=== PATIENT | male | born 1960 | race Caucasian/White ===

== ENCOUNTER 2016-05-22 15:35 | Inpatient (IN) | payer MEDICARE, OTHER ==
[2016-05-22] MEDS ORDERED: ONDANSETRON HCL/PF 4 MG/ 2ML VIAL IVP ONE (15:50)
[2016-05-22] MEDS ORDERED: MORPHINE SULFATE 4 MG/ML DISP.SYRIN IVP ONE ×2 (15:50→16:31)
--- NOTE | 2016-05-22 15:54 | ED Physician Documentation ---
Abdominal Pain - HISTORIAN Historian: patient, paramedics - HPI Chief Complaint: Abdominal Pain Additonal Information: lt low thoracic and upper abd pain similar to prev pancreatitis - n/e Onset: days ago (3) Duration: constant, waxing, waning Timing: worse Context: other (pmh alcoholic pancreatitis) Severity: moderate Quality: pain Associated Symptoms: chills, nausea, vomiting. denies: bloody emesis, diarrhea Relieved by: nothing - ROS CONST: no problems GI/: none CVS/RESP: none EYES/ENT: none MS/SKIN/LYMPH: none, other (multiple tattoos) NEURO/PSYCH: none - SOCIAL HX Smoking History: less than 1 pack/day Alcohol Use: none Drug Use: none - FAMILY HX Family History: no significant history - PAST HX Past History: pancreatitis, GERD Surgeries/Procedures: other (j-tube bypass of pancreas) Home Medications: Ambulatory Orders Medication Instructions Recorded Bupropion HCl [Wellbutrin Xl] 150 mg PO DAILY 11/21/15 Diazepam 5 mg PO TID 11/21/15 Lipase/Protease/Amylase [Zenpep Dr 1 each PO AC15 11/21/15 15,000 Units Capsule] Lisinopril 20 mg PO DAILY 11/21/15 Omeprazole [Prilosec] 20 mg PO D #30 capsule. 01/22/16 Allergies/Adverse Reactions: Allergies Allergy/AdvReac Type Severity Reaction Status Date / Time oxycodone AdvReac Vomiting Verified 11/21/15 08:27 - VITAL SIGNS Vital Signs: Vital Signs Temp Pulse Resp BP Pulse Ox 98.1 F 87 18 163/92 97 05/22/16 15:45 05/22/16 15:45 05/22/16 15:45 05/22/16 15:45 05/22/16 15:45 - REVIEWED ASSESSMENTS Nursing Assessment Reviewed: Yes Vitals Reviewed: Yes ED Results Lab/Radiology - Lab Results Lab Results: Lab Results 05/22/16 05/22/16 15:55 15:55 WBC 14.10 K/ul H K/ul (4.00-12.00) RBC 5.35 M/ul H M/ul (3.90-5.20) Hgb 15.2 g/dL g/dL (12.0-18.0) Hct 46.5 % % (37.0-53.0) MCV 86.8 fl fl (80.0-100.0) MCH 28.4 pg pg (28.0-34.0) MCHC 32.7 g/dL g/dL (30.0-36.0) RDW 13.7 % % (11.3-14.3) Plt Count 263 K/mm3 K/mm3 (130-400) Neut % (Auto) 80.5 % H % (39.0-79.0) Lymph % (Auto) 13.5 % L % (16.0-50.0) Edwards % (Auto) 4.3 % % (0.0-11.0) Eos % (Auto) 0.7 % % (0.0-6.8) Baso % (Auto) 0.4 (0.0-1.5) Neut # 11.4 # k/uL H # k/uL (1.4-7.7) Lymph # 1.9 # k/uL # k/uL (0.6-4.0) Edwards # 0.6 # k/uL # k/uL (0.0-0.9) Eos # 0.1 # k/uL # k/uL (0.0-0.6) Baso # 0.0 # k/uL # k/uL (0.0-0.5) Reactive Lymphs % 0.7 % % (0.0-5.0) Reactive Lymphs # 0.1 # k/uL # k/uL (0.0-0.8) Sodium 138 mmol/L mmol/L (136-145) Potassium 4.0 mmol/L mmol/L (3.5-5.0) Chloride 107 mmol/L mmol/L (98-110) Carbon Dioxide 31 mmol/L mmol/L (20-32) BUN 16 mg/dL mg/dL (10-26) Creatinine 1.1 mg/dL mg/dL (0.4-1.5) Estimated Creat Clear 75 Est GFR ( Amer) > 60 (60 - ) Est GFR (Non-Af Amer) > 60 (60 - ) Glucose 111 mg/dL H mg/dL (70-99) Calcium 9.9 mg/dL mg/dL (8.5-10.5) Total Bilirubin 0.5 mg/dL mg/dL (0.2-1.2) AST 27 U/L U/L (0-41) ALT 16 U/L U/L (0-45) Alkaline Phosphatase 77 U/L U/L (46-116) Total Protein 8.2 g/dL g/dL (6.0-8.5) Albumin 5.1 g/dL g/dL (3.0-5.5) Amylase 696 U/L H U/L (20-104) - Orders Orders: ED Orders Category Date Time Status Assess pulse oximetry Q4H Care 05/22/16 16:55 Active Continuous EKG monitoring Q1H Care 05/22/16 16:55 Active Document Bowel Movement Q8H Care 05/22/16 16:[address] Ann NOW Care 05/22/16 17:00 Ordered Insert NG tube 1T Care 05/22/16 16:37 Active Vital Signs Q4 Care 05/22/16 16:55 Ordered Nothing Per Oral Diet 05/22/16 Dinner Ordered ABD SERIES PA CHEST [RAD] Stat Exams 05/22/16 Completed AMYLASE Routine Lab 05/22/16 15:55 Completed CBC/PLATELET/DIFF Routine Lab 05/22/16 15:55 Completed CMP Routine Lab 05/22/16 15:55 Completed URINALYSIS Routine Lab 05/22/16 Ordered 0.9 % Sodium Chloride [Normal Saline] 1,000 ml Med 05/22/16 16:00 Discontinued IV Q10H 0.9 % Sodium Chloride [Normal Saline] 1,000 ml Med 05/22/16 17:01 Ordered IV Q4-6 Bupropion HCl [Wellbutrin Xl] Med 05/23/16 09:00 Ordered 150 mg PO DAILY Diazepam [Diazepam] Med 05/22/16 18:00 Ordered 5 mg PO TID Lipase/Protease/Amylase [Zenpep Dr 15,000 Units Capsule Med 05/23/16 07:45 Ordered ] 1 each PO AC15 Lisinopril [Lisinopril] Med 05/23/16 09:00 Ordered 20 mg PO DAILY Morphine Sulfate [DepoDUR] Med 05/22/16 15:50 Discontinued 2 mg IVP NOW ONE Morphine Sulfate [DepoDUR] Med 05/22/16 16:31 Discontinued 2 mg IVP NOW ONE Omeprazole [Prilosec] Med 05/23/16 09:00 Ordered 20 mg PO D Ondansetron HCl/Pf [Zofran 4 mg/2 ml] Med 05/22/16 15:50 Discontinued 4 mg IVP NOW ONE Resuscitation Status Routine Oth 05/22/16 Ordered EKG WITH COMPARISON Stat Ther 05/22/16 Completed Abdominal Pain Physical Exam - Physical Exam General Appearance: mild distress, moderate distress EENT: eye inspection normal NECK: normal inspection, thyroid normal, supple RESPIRATORY: no resp distress, chest non-tender, breath sounds normal CVS: reg rate & rhythm, heart sounds normal ABDOMEN: soft, tenderness (upper abd) BACK: normal inspection, no CVA tenderness SKIN: warm/dry, normal color. No: cyanosis, diaphoresis EXTREMITIES: non-tender, normal range of motion NEURO: oriented X3, motor nml, sensation nml, mood/affect nml Vital Signs: Vital Signs Temp Pulse Resp BP Pulse Ox 98.1 F 87 18 163/92 97 05/22/16 15:45 05/22/16 15:45 05/22/16 15:45 05/22/16 15:45 05/22/16 15:45 Discharge Clincal Impression: Pancreatitis Home Medications: Ambulatory Orders Bupropion HCl [Wellbutrin Xl] 150 mg PO DAILY 11/21/15 Diazepam 5 mg PO TID 11/21/15 Lipase/Protease/Amylase [Fidel Vergara 15,000 Units Capsule] 1 each PO AC15 Lisinopril 20 mg PO DAILY 11/21/15 Omeprazole [Prilosec] 20 mg PO D #30 capsule. 01/22/16 Comments: adm dr ann Condition: Good Disposition: 01 HOME, SELF-CARE Decision to Admit: [id number] Decision Time: 17:03
[2016-05-22] MEDS ORDERED: 0.9 % SODIUM CHLORIDE 1,000 ML IV SCH (16:00)
[2016-05-22 16:08] LABS: BASOPHILS % 0.4 (0.0-1.5); EOSINOPHILS % 0.7 % (0.0-6.8); LYMPHOCYTES # 1.9 # k/uL (0.6-4.0); MEAN CORPUSCULAR HEMOGLOBIN 28.4 pg (28.0-34.0); MONOCYTES # 0.6 # k/uL (0.0-0.9); MONOCYTES % 4.3 % (0.0-11.0); NEUTROPHILS # 11.4 # k/uL (1.4-7.7)
[2016-05-22 16:16] LABS: eGFR (African) > 60; eGFR (Non-African) > 60
--- NOTE | 2016-05-22 16:46 | Diagnostic Imaging Report ---
[facility] [address] [facility].[address] [address] Report Submission Date: May 22, 2016 4:34:22 PM PSYCHIATRIC TECHNICIAN Patient Study Name: JOE GEORGE Date: May 22, 2016 4:15:13 PM PSYCHIATRIC TECHNICIAN Modality Type: CR Gender: M Description: CHEST,ABDOMEN : 62 Institution: [facility] Physician: TAWANNA Stacy DO Obstructive series with chest x-ray Clinical history: Abdominal and chest pain. History of chronic pancreatitis. Findings: Examination of the chest in single upright view demonstrates the lungs to be clear. The cardiovascular and mediastinal silhouettes are within normal limits for the patient's age. The aorta is atherosclerotic. The bony thorax is intact. Examination of the abdomen in supine and upright views demonstrates gas and stool throughout the colon. Psoas margins are well-defined and the properitoneal fat lines are preserved. The visualized visceral silhouettes are within normal limits. Degenerative changes are seen in the thoracolumbar spine and hips. Impression: 1. Aortic atherosclerosis. 2. Thoracolumbar spondylosis. 3. No obstruction or free air. Electronically signed on May 22, 2016 4:34:22 PM PSYCHIATRIC TECHNICIAN by: Ismael AGUILAR
[2016-05-22] MEDS ORDERED: 0.9 % SODIUM CHLORIDE 1,000 ML IV ONE (16:48)
[2016-05-22] MEDS ORDERED: 0.9 % SODIUM CHLORIDE 1,000 ML IV PRN ×2 (17:01→17:05)
[2016-05-22] MEDS ORDERED: DIAZEPAM 5 MG PO SCH (18:00)
[2016-05-22] MEDS: 0.9 % SODIUM CHLORIDE 1,000 ML IV SCH ×2 (18:45→21:10)
--- NOTE | 2016-05-22 19:21 | History and Physical Report ---
History of Present Illnes - History of Present Illness Reason for Visit: Acute pancreatitis History of Present Illness: This is a 56 year old male admitted due to abdominal pain, and markedly elevated amylase level. He has a history of recurrent pancreatitis and was hospitalized for the same in January at our institution last year. He has been treated non operatively although several years ago, he did have a J tube in place for an extended period of time and he was NPO. He states that he is an alcoholic and that he only stopped drinking a few months ago. He says that this is the first episode of pancreatitis that he has experienced since he stopped drinking alcohol. - Past Medical History Cardiac: HTN Pulmonary: COPD, Other (smoker) Hepatobiliary: Other (History of recurrent pancreatitis) Psych: Addictions (alcoholism) Renal/: denies: Chronic renal insuff Endocrine: denies: Diabetes - Past Surgical History Past Surgical History: Other (J tube placement) - Past Social History Smoke: <1 pack per day (04/17 ppd) Occupation: disabled Alcohol: Occassional (1 beer daily) Drugs: None Lives: With Family Domestic Violence: Negative - Health Maintenance Health Maintenance: Cholesterol Influenza Vaccine: Current for this Influenza Season Pneumonia Vaccine: Yes Resuscitation Status: Full Code Review of Systems - Review of Systems Constitutional: Chills, Sweats, Weakness, Malaise. negative: Fever Eyes: pain (epigastric to RUQ) ENT: negative: Ear Pain, Ear Discharge Respiratory: negative: Cough, Dry Cardiovascular: negative: Chest Pain Gastrointestinal: Nausea, Vomiting, Abdominal Pain. negative: Diarrhea Genitourinary: negative: Dysuria Musculoskeletal: negative: Neck Pain, Shoulder Pain Skin: negative: Rash, Lesions Neurological: Weakness. negative: Confusion - Medications/Allergies Allergies/Adverse Reactions: Allergies Allergy/AdvReac Type Severity Reaction Status Date / Time oxycodone AdvReac Vomiting Verified 11/21/15 08:27 Home Medications: Home Medications Bupropion HCl [Wellbutrin Sr] 150 mg PO BID 05/22/16 Current Inpatient Medications: Current Inpatient Medications Bupropion HCl (Wellbutrin Sr) 150 mg PO BID LAM Sodium Chloride (Normal Saline) 1,000 mls @ 200 mls/hr IV Q10H LAM Last Admin: 05/22/16 18:45 Dose: 200 mls/hr Lisinopril (Prinivil) 20 mg PO DAILY LAM Morphine Sulfate (Depodur) 2 mg IVP Q2 PRN PRN Reason: Severe Pain Pantoprazole Sodium (Protonix) 40 mg PO 0700 LAM Exam - Exam Vital Signs: Vital Signs (72 hours) 05/22/16 05/22/16 05/22/16 17:40 17:55 18:00 Temperature 98.1 F 97.0 F L Pulse Rate 66 Pulse Rate [ 87 70 Pulse ox] Respiratory 18 22 Rate Blood Pressure 167/97 188/103 [Left Arm] O2 Sat by Pulse 98 97 Oximetry General: Alert, Oriented to Person, Oriented to Place, Oriented to Time, Cooperative, Moderate distress (due to abdominal pain) HEENT: Atraumatic, PERRLA, EOMI, Poor Dentition. No: Scleral Icterus, Abnormal Pupil Neck: No: Stridor Lungs: Wheezes, Prolonged Expiration, Decreased Air Movement Cardiovascular: Regular rate. No: Murmur Abdomen: Normal bowel sounds, Other (tender in the epigastrium), Distended Genitourinary: No: Right Inguinal Hernia, Left Inguinal Hernia Male Genitourinary: No: Scrotal Edema Female Genitourinary: Prolapse Integumentary: Normal, Other (diaphoretic) Extremities: No clubbing, No cyanosis Neurological: Normal speech, Cranial nerves 3-12 NL Psych/Mental Status: Mental status NL, Intact Judgment Assessment/Plan - Assessment/Plan (1) Pancreatitis Status: Acute Current Visit: Yes Assessment: Mild by Shayla Criteria Plan: CT abdomen with contrast Repeat labs in am NPO/NG tube Evidence does not show prophylactic antibiotics would be helpful at this time Stressed need for abstinence from alcohol (2) Alcoholism in remission Status: Acute Current Visit: Yes Assessment: Encouraged continued abstinence from alcohol (3) RUQ abdominal pain Status: Acute Current Visit: No Assessment: As above VTE Assessment - RISK FACTOR SCORE VTE RISK FACTOR SCORES: AGE 40-60 YEARS, ANTICIPATED BED CONFINEMENT OR IMMOBILIZATION > 24 HOURS - RISK VTE MODERATE RISK: SCORE OF 2 (RISK PROXIMAL DVT 2-4%) PROPHYAXIS NEEDED (On lovenox and JALYN hose)
[2016-05-22 19:23] VITALS: BMI 22.8
[2016-05-22] MEDS ORDERED: SALINE FLUSH 10 ML DISP.SYRIN IVF ONE ×2 (19:53→21:53)
[2016-05-22] MEDS: MORPHINE SULFATE 2 MG/ML DISP.SYRIN IVP PRN ×2 (19:55→21:59)
[2016-05-22] MEDS ORDERED: ENOXAPARIN SODIUM 30 MG/0.3 ML DISP.SYRIN SQ SCH (20:00)
[2016-05-22] MEDS ORDERED: PANTOPRAZOLE SODIUM INJ. 40 MG VIAL ONE (21:07)
[2016-05-22] MEDS ORDERED: 0.9 % SODIUM CHLORIDE 50 ML IV ONE (21:07)
[2016-05-22] MEDS: PANTOPRAZOLE SODIUM 40 MG in 0.9 % SODIUM CHLORIDE 50 ML IV SCH (21:13)
[2016-05-22] MEDS ORDERED: ENOXAPARIN SODIUM 30 MG/0.3 ML DISP.SYRIN SQ ONE (21:15)
[2016-05-22] MEDS: buPROPion 150 MG TABLET.ER PO SCH (23:35)
[2016-05-23] MEDS ORDERED: SALINE FLUSH 10 ML DISP.SYRIN IVF ONE ×4 (00:03→23:00)
[2016-05-23] MEDS: MORPHINE SULFATE 2 MG/ML DISP.SYRIN IVP PRN ×9 (00:06→23:03)
[2016-05-23] MEDS: 0.9 % SODIUM CHLORIDE 1,000 ML IV SCH ×3 (02:45→21:52)
--- NOTE | 2016-05-23 05:46 | Diagnostic Imaging Report ---
Report Submission Date: May 22, 2016 8:45:35 PM COURTESY VAN DRIVER Patient ~ Study Name: JOE GEORGE ~ Date: May 22, 2016 8:19:48 PM COURTESY VAN DRIVER ~ Modality Type: CT\SR Gender: M ~ Description: CT ABD & PELVIS W/ CON : 62 ~ Institution: [facility] Physician: ANNY SCHILLING ~ ~ ~ ~ Computed tomography of the abdomen and pelvis with contrast History: Acute pancreatitis and abdominal pain Findings: Transverse abdomen and pelvis sections are obtained after 90 mL intravenous omnipaque 350. A nasogastric tube terminates in the proximal stomach. Mitral annulus calcification, right renal cyst, mild atherosclerosis, and multilevel lumbar spondylosis and are observed. A hypodense 3.5 x 3.5 cm pancreatic head lesion ~was previously cystic and is now soft tissue density. This is associated with peripancreatic inflammation, duodenum mural thickening, and peripheral pancreatic ductal dilatation. Gallbladder diameter and wall thickness are normal. The liver, spleen, adrenals, and left kidney are normal. Inflammation extends into the root of the mesentery. There is no evidence of biliary ductal dilatation. Bowel loops exhibit normal caliber and wall thickness including a normal appendix. Pelvic sections reveal unremarkable bowel loops and urinary bladder. Prostate and seminal vesicles are normal in size. Impression: 1. A previously cystic pancreatic head lesion now exhibits soft tissue density and may represent proteinaceous material, hemorrhage, or less likely malignancy given the lack of interval change in size since the January 20, 2016 scan. This is associated with persistent peripheral pancreatic duct dilatation. Consider MRI followup to exclude neoplastic disease. 2. Acute pancreatitis and duodenitis. ~ Electronically signed on May 22, 2016 8:45:35 PM COURTESY VAN DRIVER by: Oleg AGUILAR
[2016-05-23 06:43] LABS: eGFR (African) > 60; eGFR (Non-African) > 60
[2016-05-23] MEDS ORDERED: PANTOPRAZOLE SODIUM 40 MG TABLET PO SCH (07:00)
[2016-05-23] MEDS ORDERED: LIPASE PO SCH (07:45)
[2016-05-23] MEDS ORDERED: AMYLASE PO SCH (07:45)
[2016-05-23] MEDS ORDERED: PROTEASE PO SCH (07:45)
[2016-05-23] MEDS ORDERED: BUPROPION HCL 150 MG PO SCH (09:00)
[2016-05-23] MEDS ORDERED: OMEPRAZOLE 20 MG PO SCH (09:00)
[2016-05-23] MEDS ORDERED: LISINOPRIL 20 MG PO SCH (09:00)
--- NOTE | 2016-05-23 09:01 | Inpatient Progress Note ---
Subjective - Required Recertification Statement I anticipate X number of days because-include discharge plan: 4 - Review of Systems Events since last encounter: Leonardo is still has some abdominal pain. His CT abdomen shows pancreatic head edema, no peripancreatic fluid collections. It is consistent with acute pancreatitis and duodenitis. His pain is better with morphine. His NG tube appears to be functioning well. General: Chills, Night Sweats, Fatigue HEENT: Denies: Head Aches Pulmonary: Denies: Dyspnea, Cough Cardiovascular: Denies: Chest Pain, Palpitations Gastrointestinal: Nausea. Denies: Vomiting Genitourinary: Denies: Dysuria, Frequency Musculoskeletal: Denies: Neck Pain Neurological: Weakness. Denies: Confusion Objective - Exam Vitals and I&O: Vital Signs Temp 99 F 05/23/16 08:45 Pulse 63 05/23/16 08:45 Resp 18 05/23/16 08:45 BP 142/77 05/23/16 08:45 Pulse Ox 96 05/23/16 08:45 Intake & Output 05/22/16 05/22/16 05/23/16 11:59 23:59 11:59 Intake Total 0 2600 Output Total 800 Balance 0 1800 Weight 72.121 kg Intake: IV 2600 Left Wrist 2600 Oral 0 0 Output: Gastric Drainage 0 Left Nare 0 Urine 800 Other: Voiding Method Toilet # Voids 1 General: Alert, Oriented to Person, Oriented to Place HEENT: Atraumatic, PERRLA, EOMI, Poor Dentition, Other (NG tube is in place to intermittent suction) Neck: Supple, No JVD Lungs: Clear to auscultation Cardiovascular: Regular rate Abdomen: Normal bowel sounds, Other (Mid epigastric tenderness persists) Extremities: No clubbing, No cyanosis, No edema Skin: Normal, [place] Neurological: Normal speech Psych/Mental Status: Mental status NL - Results Results: Laboratory Results WBC 8.70 K/ul (4.00-12.00) 05/23/16 06:15 RBC 4.43 M/ul (3.90-5.20) 05/23/16 06:15 Hgb 12.9 g/dL (12.0-18.0) 05/23/16 06:15 Hct 38.7 % (37.0-53.0) 05/23/16 06:15 MCV 87.4 fl (80.0-100.0) 05/23/16 06:15 MCH 29.0 pg (28.0-34.0) 05/23/16 06:15 MCHC 33.2 g/dL (30.0-36.0) 05/23/16 06:15 RDW 13.7 % (11.3-14.3) 05/23/16 06:15 Plt Count 178 K/mm3 (130-400) 05/23/16 06:15 Neut % (Auto) 80.5 % (39.0-79.0) H 05/22/16 15:55 Lymph % (Auto) 13.5 % (16.0-50.0) L 05/22/16 15:55 Pettis % (Auto) 4.3 % (0.0-11.0) 05/22/16 15:55 Eos % (Auto) 0.7 % (0.0-6.8) 05/22/16 15:55 Baso % (Auto) 0.4 (0.0-1.5) 05/22/16 15:55 Neut # 11.4 # k/uL (1.4-7.7) H 05/22/16 15:55 Lymph # 1.9 # k/uL (0.6-4.0) 05/22/16 15:55 Pettis # 0.6 # k/uL (0.0-0.9) 05/22/16 15:55 Eos # 0.1 # k/uL (0.0-0.6) 05/22/16 15:55 Baso # 0.0 # k/uL (0.0-0.5) 05/22/16 15:55 Reactive Lymphs % 0.7 % (0.0-5.0) 05/22/16 15:55 Reactive Lymphs # 0.1 # k/uL (0.0-0.8) 05/22/16 15:55 Sodium 137 mmol/L (136-145) 05/23/16 06:15 Potassium 3.8 mmol/L (3.5-5.0) 05/23/16 06:15 Chloride 110 mmol/L (98-110) 05/23/16 06:15 Carbon Dioxide 26 mmol/L (20-32) 05/23/16 06:15 BUN 12 mg/dL (10-26) 05/23/16 06:15 Creatinine 0.8 mg/dL (0.4-1.5) 05/23/16 06:15 Estimated Creat Clear 106 05/23/16 06:15 Est GFR ( Amer) > 60 (60-) 05/23/16 06:15 Est GFR (Non-Af Amer) > 60 (60-) 05/23/16 06:15 Glucose 93 mg/dL (70-99) 05/23/16 06:15 Calcium 8.6 mg/dL (8.5-10.5) 05/23/16 06:15 Total Bilirubin 0.5 mg/dL (0.2-1.2) 05/22/16 15:55 AST 27 U/L (0-41) 05/22/16 15:55 ALT 16 U/L (0-45) 05/22/16 15:55 Alkaline Phosphatase 77 U/L (46-116) 05/22/16 15:55 Total Protein 8.2 g/dL (6.0-8.5) 05/22/16 15:55 Albumin 5.1 g/dL (3.0-5.5) 05/22/16 15:55 Amylase 696 U/L (20-104) H 05/22/16 15:55 Assessment/Plan - Assessment/Plan (1) Pancreatitis Status: Acute Current Visit: Yes Assessment: Recurrent Plan: Check placement of NG tube Added levofloxacin and flagyl (2) Alcoholism in remission Status: Acute Current Visit: Yes Assessment: Stable (3) RUQ abdominal pain Status: Acute Current Visit: No Assessment: Due to pancreatitis
[2016-05-23] MEDS ORDERED: metroNIDAZOLE/SODIUM CHLORIDE 100 ML IV ONE ×4 (10:27→19:59)
[2016-05-23] MEDS ORDERED: LEVOFLOXACIN 500MG/D5W 100ML 100 ML IV ONE (10:27)
[2016-05-23] MEDS: ENOXAPARIN SODIUM 30 MG/0.3 ML DISP.SYRIN SQ SCH (10:33)
[2016-05-23] MEDS: LISINOPRIL 20 MG TABLET PO SCH (10:33)
[2016-05-23] MEDS: buPROPion 150 MG TABLET.ER PO SCH ×2 (10:33→20:40)
[2016-05-23] MEDS: PANTOPRAZOLE SODIUM 40 MG in 0.9 % SODIUM CHLORIDE 50 ML IV SCH (10:45)
--- NOTE | 2016-05-23 10:49 | Diagnostic Imaging Report ---
[facility] [address] [facility] [address] [address] Report Submission Date: May 23, 2016 10:08:38 AM VEST PRESSER Patient Study Name: JOE GEORGE Date: May 23, 2016 9:53:35 AM VEST PRESSER Modality Type: CR Gender: M Description: ABDOMEN : 62 Institution: [facility] Physician TONIE MCCORMICK - OP Abdomen -one view CLINICAL HISTORY: Nasogastric tube placement. FINDINGS: Examination abdomen in single AP view with comparison to examination from the previous day demonstrates nasogastric tube with tip in the gastric body. Gas and stool are present throughout the colon. Psoas margins are well defined and the properitoneal fat lines are preserved. There are no unusual intra- abdominal calcifications. Mild spondylitic changes are seen in the thoracic vertebrae. IMPRESSION: Nasogastric tube tip in the gastric body. Electronically signed on May 23, 2016 10:08:38 AM VEST PRESSER by: Ismael AGUILAR
[2016-05-23] MEDS: metroNIDAZOLE/SODIUM CHLORIDE 500 MG in PREMIX BAG 1 BAG IV SCH ×3 (11:25→20:06)
[2016-05-23] MEDS: LEVOFLOXACIN 500MG/D5W 100ML 500 MG in PREMIX BAG 1 BAG IV SCH (12:31)
[2016-05-23] MEDS ORDERED: MORPHINE SULFATE 2 MG/ML DISP.SYRIN ONE ×4 (14:40→23:01)
[2016-05-23] MEDS ORDERED: buPROPion 150 MG TABLET.ER PO ONE (15:24)
[2016-05-23] MEDS ORDERED: 0.9 % SODIUM CHLORIDE 1,000 ML IV ONE ×2 (15:25→21:50)
[2016-05-23 18:11] LABS: LIPASE 243 U/L (13-60)
[2016-05-24] MEDS ORDERED: metroNIDAZOLE/SODIUM CHLORIDE 100 ML IV ONE ×3 (02:40→19:45)
[2016-05-24] MEDS ORDERED: 0.9 % SODIUM CHLORIDE 1,000 ML IV ONE ×4 (02:40→22:58)
[2016-05-24] MEDS: 0.9 % SODIUM CHLORIDE 1,000 ML IV SCH ×5 (02:44→23:01)
[2016-05-24] MEDS: metroNIDAZOLE/SODIUM CHLORIDE 500 MG in PREMIX BAG 1 BAG IV SCH ×4 (02:44→19:51)
[2016-05-24] MEDS ORDERED: SALINE FLUSH 10 ML DISP.SYRIN IVF ONE ×5 (02:53→19:53)
[2016-05-24] MEDS ORDERED: MORPHINE SULFATE 2 MG/ML DISP.SYRIN ONE ×7 (02:54→19:53)
[2016-05-24] MEDS: MORPHINE SULFATE 2 MG/ML DISP.SYRIN IVP PRN ×7 (02:56→19:57)
[2016-05-24] MEDS ORDERED: 0.9 % SODIUM CHLORIDE 50 ML IV ONE (05:40)
[2016-05-24] MEDS ORDERED: ENOXAPARIN SODIUM 30 MG/0.3 ML DISP.SYRIN SQ ONE (05:40)
[2016-05-24] MEDS ORDERED: LEVOFLOXACIN 500MG/D5W 100ML 100 ML IV ONE (05:40)
[2016-05-24] MEDS ORDERED: PANTOPRAZOLE SODIUM INJ. 40 MG VIAL ONE (05:41)
[2016-05-24] MEDS: buPROPion 150 MG TABLET.ER PO SCH ×2 (08:19→19:49)
[2016-05-24] MEDS ORDERED: LISINOPRIL 20 MG TABLET ONE (08:19)
[2016-05-24] MEDS: ENOXAPARIN SODIUM 30 MG/0.3 ML DISP.SYRIN SQ SCH (08:19)
[2016-05-24] MEDS: LISINOPRIL 20 MG TABLET PO SCH (08:21)
[2016-05-24] MEDS: PANTOPRAZOLE SODIUM 40 MG in 0.9 % SODIUM CHLORIDE 50 ML IV SCH (08:33)
[2016-05-24] MEDS: LEVOFLOXACIN 500MG/D5W 100ML 500 MG in PREMIX BAG 1 BAG IV SCH (11:05)
--- NOTE | 2016-05-24 12:52 | Inpatient Progress Note ---
Subjective - Required Recertification Statement I anticipate X number of days because-include discharge plan: 2 - Review of Systems Events since last encounter: Leonardo is feeling better today. His pain is better controlled. His NG tube is a little irritating, but he is cooperative and compliant. General: Denies: Chills, Night Sweats HEENT: Denies: Head Aches Pulmonary: Denies: Dyspnea, Cough Cardiovascular: Denies: Chest Pain Gastrointestinal: Nausea, Abdominal Pain (improved). Denies: Vomiting Genitourinary: Denies: Dysuria Musculoskeletal: Denies: Neck Pain Neurological: Weakness. Denies: Confusion Objective - Exam Vitals and I&O: Vital Signs Temp 98.9 F 05/24/16 08:48 Pulse 75 05/24/16 12:00 Resp 16 05/24/16 08:48 BP 135/72 05/24/16 08:48 Pulse Ox 97 05/24/16 08:48 Intake & Output 05/23/16 05/24/16 05/24/16 23:59 11:59 23:59 Intake Total 1200 1000 Output Total 725 1200 Balance 475 -200 Weight 72.121 kg Intake: IV 1200 1000 Left Wrist 1200 1000 Oral 0 0 Output: Gastric Drainage 50 Left Nare 50 Urine 675 1200 Other: Voiding Method Toilet Urinal # Bowel Movements 0 General: Alert, Oriented to Person, Oriented to Place, Cooperative, Moderate distress HEENT: Atraumatic, PERRLA, EOMI Neck: Supple, No JVD Lungs: Clear to auscultation Cardiovascular: Regular rate, Normal S1 Abdomen: Normal bowel sounds Extremities: No clubbing, No cyanosis, No edema Skin: Normal, [place] Neurological: Normal gait, Normal speech Psych/Mental Status: Mental status NL - Results Results: Laboratory Results WBC 8.70 K/ul (4.00-12.00) 05/23/16 06:15 RBC 4.43 M/ul (3.90-5.20) 05/23/16 06:15 Hgb 12.9 g/dL (12.0-18.0) 05/23/16 06:15 Hct 38.7 % (37.0-53.0) 05/23/16 06:15 MCV 87.4 fl (80.0-100.0) 05/23/16 06:15 MCH 29.0 pg (28.0-34.0) 05/23/16 06:15 MCHC 33.2 g/dL (30.0-36.0) 05/23/16 06:15 RDW 13.7 % (11.3-14.3) 05/23/16 06:15 Plt Count 178 K/mm3 (130-400) 05/23/16 06:15 Neut % (Auto) 80.5 % (39.0-79.0) H 05/22/16 15:55 Lymph % (Auto) 13.5 % (16.0-50.0) L 05/22/16 15:55 Cotton % (Auto) 4.3 % (0.0-11.0) 05/22/16 15:55 Eos % (Auto) 0.7 % (0.0-6.8) 05/22/16 15:55 Baso % (Auto) 0.4 (0.0-1.5) 05/22/16 15:55 Neut # 11.4 # k/uL (1.4-7.7) H 05/22/16 15:55 Lymph # 1.9 # k/uL (0.6-4.0) 05/22/16 15:55 Cotton # 0.6 # k/uL (0.0-0.9) 05/22/16 15:55 Eos # 0.1 # k/uL (0.0-0.6) 05/22/16 15:55 Baso # 0.0 # k/uL (0.0-0.5) 05/22/16 15:55 Reactive Lymphs % 0.7 % (0.0-5.0) 05/22/16 15:55 Reactive Lymphs # 0.1 # k/uL (0.0-0.8) 05/22/16 15:55 Sodium 137 mmol/L (136-145) 05/23/16 06:15 Potassium 3.8 mmol/L (3.5-5.0) 05/23/16 06:15 Chloride 110 mmol/L (98-110) 05/23/16 06:15 Carbon Dioxide 26 mmol/L (20-32) 05/23/16 06:15 BUN 12 mg/dL (10-26) 05/23/16 06:15 Creatinine 0.8 mg/dL (0.4-1.5) 05/23/16 06:15 Estimated Creat Clear 106 05/23/16 06:15 Est GFR ( Amer) > 60 (60-) 05/23/16 06:15 Est GFR (Non-Af Amer) > 60 (60-) 05/23/16 06:15 Glucose 93 mg/dL (70-99) 05/23/16 06:15 Calcium 8.6 mg/dL (8.5-10.5) 05/23/16 06:15 Total Bilirubin 0.5 mg/dL (0.2-1.2) 05/22/16 15:55 AST 27 U/L (0-41) 05/22/16 15:55 ALT 16 U/L (0-45) 05/22/16 15:55 Alkaline Phosphatase 77 U/L (46-116) 05/22/16 15:55 Total Protein 8.2 g/dL (6.0-8.5) 05/22/16 15:55 Albumin 5.1 g/dL (3.0-5.5) 05/22/16 15:55 Amylase 696 U/L (20-104) H 05/22/16 15:55 Lipase 243 U/L (13-60) H 05/23/16 06:15 Assessment/Plan - Assessment/Plan (1) Pancreatitis Status: Acute Current Visit: Yes Assessment: Amylase ordered for this am was canceled by [email or web address], so I have reordered it. If normalized, will get out NG tube and advance to clear liquids (2) Alcoholism in remission Status: Acute Current Visit: Yes Assessment: Stable (3) RUQ abdominal pain Status: Acute Current Visit: No Assessment: Improved
[2016-05-24 13:31] LABS: eGFR (African) > 60; eGFR (Non-African) > 60
[2016-05-24] MEDS ORDERED: buPROPion 150 MG TABLET.ER PO ONE (19:45)
[2016-05-25] MEDS ORDERED: metroNIDAZOLE/SODIUM CHLORIDE 100 ML IV ONE ×3 (02:11→17:16)
[2016-05-25] MEDS: metroNIDAZOLE/SODIUM CHLORIDE 500 MG in PREMIX BAG 1 BAG IV SCH ×3 (02:50→17:25)
[2016-05-25] MEDS ORDERED: MORPHINE SULFATE 2 MG/ML DISP.SYRIN ONE ×2 (02:51→09:47)
[2016-05-25] MEDS ORDERED: 0.9 % SODIUM CHLORIDE 1,000 ML IV ONE ×2 (02:54→11:49)
[2016-05-25] MEDS ORDERED: SALINE FLUSH 10 ML DISP.SYRIN IVF ONE (02:55)
[2016-05-25] MEDS: MORPHINE SULFATE 2 MG/ML DISP.SYRIN IVP PRN ×2 (03:03→10:00)
[2016-05-25] MEDS ORDERED: buPROPion 150 MG TABLET.ER PO ONE (04:43)
[2016-05-25] MEDS ORDERED: ENOXAPARIN SODIUM 30 MG/0.3 ML DISP.SYRIN SQ ONE (04:43)
[2016-05-25] MEDS ORDERED: LISINOPRIL 20 MG TABLET ONE (04:44)
[2016-05-25] MEDS: 0.9 % SODIUM CHLORIDE 1,000 ML IV SCH ×3 (04:58→19:19)
[2016-05-25] MEDS ORDERED: LEVOFLOXACIN 500MG/D5W 100ML 100 ML IV ONE (07:49)
[2016-05-25] MEDS ORDERED: 0.9 % SODIUM CHLORIDE 50 ML IV ONE (07:50)
[2016-05-25] MEDS ORDERED: PANTOPRAZOLE SODIUM INJ. 40 MG VIAL ONE (07:51)
[2016-05-25] MEDS: buPROPion 150 MG TABLET.ER PO SCH (08:46)
[2016-05-25] MEDS: LISINOPRIL 20 MG TABLET PO SCH (08:46)
[2016-05-25] MEDS: ENOXAPARIN SODIUM 30 MG/0.3 ML DISP.SYRIN SQ SCH (08:47)
[2016-05-25] MEDS: PANTOPRAZOLE SODIUM 40 MG in 0.9 % SODIUM CHLORIDE 50 ML IV SCH (08:57)
[2016-05-25] MEDS: LEVOFLOXACIN 500MG/D5W 100ML 500 MG in PREMIX BAG 1 BAG IV SCH (11:55)
[2016-05-25 20:03] VITALS: BP 136/74
--- NOTE | 2016-05-26 15:51 | Discharge Summary ---
DATE OF ADMISSION: May 22, 2016 DATE OF DISCHARGE: May 25, 2016 DIAGNOSES ON THIS HOSPITALIZATION: Acute pancreatitis. SUMMARIZATION OF ADMISSION HISTORY AND PHYSICAL: This is a 56-year-old male who presented with increasing abdominal pain over the last several days. He was admitted. His amylase was noted to be markedly elevated and his white count was 14,000. A follow up lipase also was noted to be elevated. He was admitted for a diagnosis of pancreatitis. HOSPITAL COURSE: He was admitted. CT of his abdomen was performed which was consistent with acute pancreatitis/duodenitis. He was made n.p.o. and an NG tube was placed. He was begun on IV Flagyl and levofloxacin. He was markedly improved by the day of discharge. His amylase had normalized and his NG tube was removed and he was tolerating clear fluids. Diclofenac was given for pain. I did not send him out with a prescription for oxycodone or hydrocodone because he has had a significant reaction to those. CONDITION ON DISCHARGE: He was discharged to home in markedly improved condition to advance his diet slowly. DISCHARGE INSTRUCTIONS: He will follow up in 1 week with his primary care physician. LAUREN
== END 2016-05-25 19:30 | disposition home or self-care (01) | DRG 440 ==
LOC: ED 15:35 → SOUTH 17:36 → UNDODISIN 05-23 11:45
PROVIDERS: ADMIT Family Medicine; ATTEND Family Medicine
DX: K85.20 Alcohol induced acute pancreatitis without necrosis or infection (principal); F10.21 Alcohol dependence, in remission
CPT/HCPCS: 36415; 74000; 74022; 74177; 80048; 80053; 82150; 83690; 85025; 85027; 93005; J1650; J1956; J2270; J3490; J7030; 99222; 99232; 99238; 99284; S1016

== ENCOUNTER 2016-08-05 16:18 | Inpatient (IN) | payer MEDICARE, OTHER ==
[2016-08-05 16:51] LABS: BASOPHILS % 0.4 (0.0-1.5); MEAN CORPUSCULAR HEMOGLOBIN 27.9 pg (28.0-34.0); MEAN CORPUSCULAR VOLUME 89.2 fl (80.0-100.0); NEUTROPHILS # 10.2 # k/uL (1.4-7.7)
[2016-08-05 17:00] LABS: eGFR (African) > 60; eGFR (Non-African) > 60
[2016-08-05] MEDS ORDERED: ONDANSETRON HCL/PF 4 MG/ 2ML VIAL IVP ONE ×2 (17:03→20:05)
[2016-08-05] MEDS ORDERED: KETOROLAC TROMETHAMINE 30 MG/1ML VIAL IVP ONE (17:03)
[2016-08-05] MEDS ORDERED: KETOROLAC TROMETHAMINE 30 MG/1ML VIAL ONE (17:03)
[2016-08-05] MEDS ORDERED: ONDANSETRON HCL/PF 4 MG/ 2ML VIAL ONE (17:03)
[2016-08-05] MEDS ORDERED: 0.9 % SODIUM CHLORIDE 1,000 ML IV ONE ×2 (17:11)
--- NOTE | 2016-08-05 17:24 | ED Physician Documentation ---
Abdominal Pain <Leonardo Adan - Last Filed: 08/05/16 21:12> - HISTORIAN Historian: patient, spouse - HPI Stated Complaint: Abdominal Pain Chief Complaint: Abdominal Pain Onset: days ago (1) Duration: none, waxing, waning Timing: better Context: bad food (POSSIBLE). denies: out of country travel Severity: mild, moderate Quality: pain, cramping, sharp Associated Symptoms: nausea. denies: diarrhea, bloody stools, chest pain, back pain Relieved by: other (pt has hx freq req dilaudid when admitted-suggestive of subs abuse) - ROS CONST: no problems (denies prkoblems xc as w/cc) GI/: other (pain nausea only) CVS/RESP: none EYES/ENT: none NEURO/PSYCH: none - SOCIAL HX Smoking History: less than 1 pack/day Alcohol Use: occasionally Drug Use: none - FAMILY HX Family History: no significant history - PAST HX Past History: pancreatitis, other (htn depression) Ischemic Bowel Risk Factors: none Other History: hypertension - REVIEWED ASSESSMENTS Nursing Assessment Reviewed: Yes Vitals Reviewed: Yes <Roddy Parmar - Last Filed: 08/09/16 11:33> - HPI Additonal Information: HX RECURRENT PANCREATITIS RECENT BEER - NOT EATEN OR FLUIDS TODAY ONSET SY YESTERDAY. NAUSEA BUT NO EMESIS (Roddy Parmar) - PAST HX Home Medications: Ambulatory Orders Medication Instructions Recorded Lipase/Protease/Amylase [Fidel Vergara 1 each PO AC15 11/21/15 15,000 Units Capsule] Lisinopril 20 mg PO DAILY 11/21/15 Omeprazole [Prilosec] 20 mg PO D #30 capsule. 01/22/16 Buspirone HCl [Buspar] 15 mg PO D 05/23/16 Bupropion HCl [Bupropion Xl] 150 mg PO BID 08/05/16 Hydrochlorothiazide [Hydrodiuril] 12.5 mg PO DAILY 08/05/16 Nebivolol HCl [Bystolic] 10 mg PO DAILY 08/05/16 Allergies/Adverse Reactions: Allergies Allergy/AdvReac Type Severity Reaction Status Date / Time oxycodone AdvReac Vomiting Verified 11/21/15 08:27 - VITAL SIGNS Vital Signs: Vital Signs Temp Pulse Resp BP Pulse Ox 98.7 F 65 16 122/68 95 08/07/16 19:20 08/07/16 19:20 08/07/16 19:20 08/07/16 19:20 08/07/16 19:20 (Leonardo Adan) (Roddy Parmar) Progress <Leonardo Adan - Last Filed: 08/05/16 21:12> <Roddy Parmar - Last Filed: 08/09/16 11:33> - Progress Progress: Toradol 30 mg IV care assumed from Dr. Parmar at 1900. NS 1 L IVF x 2, then NS @ 100 cc/hr. Zofran 4 mg IV Morphine 2 mg IV NG tube Levaquin 500 mg IV Flagyl 500 mg IV Admit to Dr. Rodgers. (Leonardo Adan) Abdominal Pain Physical Exam - Physical Exam General Appearance: moderate distress <Leonardo Adan - Last Filed: 08/05/16 21:12> - Physical Exam EENT: eye inspection normal NECK: normal inspection, thyroid normal. No: lymphadenopathy RESPIRATORY: no resp distress, chest non-tender, breath sounds normal CVS: reg rate & rhythm, heart sounds normal ABDOMEN: tenderness (upper abd only), abnormal bowel sounds (decreased) BACK: normal inspection SKIN: warm/dry, normal color. No: cyanosis, diaphoresis, jaundice EXTREMITIES: non-tender, normal range of motion, no evidence of injury NEURO: oriented X3, CN's nml as tested, motor nml <Roddy Parmar - Last Filed: 08/09/16 11:33> - Physical Exam Vital Signs: Vital Signs Temp Pulse Resp BP Pulse Ox 98.7 F 65 16 122/68 95 08/07/16 19:20 08/07/16 19:20 08/07/16 19:20 08/07/16 19:20 08/07/16 19:20 (Leonardo Aadn) (Roddy Parmar) Discharge Decision to Admit: [id number] Decision Time: 20:08 <Leonardo Adan - Last Filed: 08/05/16 21:12> <Roddy Parmar - Last Filed: 08/09/16 11:33> Clincal Impression: Acute pancreatitis Qualifiers: Pancreatitis type: unspecified pancreatitis type Acute pancreatitis complication: unspecified Qualified Code(s): K85.90 - Acute pancreatitis without necrosis or infection, unspecified Home Medications: Ambulatory Orders Lipase/Protease/Amylase [Fidel Vergara 15,000 Units Capsule] 1 each PO AC15 Lisinopril 20 mg PO DAILY 11/21/15 Omeprazole [Prilosec] 20 mg PO D #30 capsule. 01/22/16 Buspirone HCl [Buspar] 15 mg PO D 05/23/16 Bupropion HCl [Bupropion Xl] 150 mg PO BID 08/05/16 Hydrochlorothiazide [Hydrodiuril] 12.5 mg PO DAILY 08/05/16 Nebivolol HCl [Bystolic] 10 mg PO DAILY 08/05/16 Condition: Stable Disposition: 09 ADMITTED INPATIENT
[2016-08-05] MEDS ORDERED: KETOROLAC TROMETHAMINE 30 MG/1ML VIAL IM ONE (17:32)
[2016-08-05] MEDS: 0.9 % SODIUM CHLORIDE 1,000 ML IV SCH ×3 (19:49→22:00)
[2016-08-05] MEDS ORDERED: MORPHINE SULFATE 2 MG/ML DISP.SYRIN IVP ONE (20:04)
[2016-08-05] MEDS ORDERED: metroNIDAZOLE/SODIUM CHLORIDE 500 MG in PREMIX BAG 1 BAG IV SCH (20:30)
[2016-08-05] MEDS ORDERED: LEVOFLOXACIN 500MG/D5W 100ML 500 MG in PREMIX BAG 1 BAG IV SCH (20:30)
--- NOTE | 2016-08-05 21:37 | History and Physical Report ---
History of Present Illnes - History of Present Illness Reason for Visit: pancreatitis History of Present Illness: 56yo white male with a history or recurrent pancreatitis. Patient states that he started to have some abdominal pain and nausea and vomiting about 3-4 days ago. Has had some fever and chills but has not checked his temperature. Patient states that he has not bee able to keep much down to the last several days, urinary output has dropped down. Patient states that he has had a sip of beer several days ago, otherwise has not had any alcohol. Has had some small / flecks of blood in his emesis. No melena or hematachezia noted. Patient was seen in the ED and found to have an elevated amylase level. Admitted for further evaluation and treatment. - Past Medical History Cardiac: HTN Pulmonary: COPD, Other (smoker) Hepatobiliary: Other (History of recurrent pancreatitis) Psych: Addictions (alcoholism) - Past Surgical History Past Surgical History: Other (J tube placement) - Past Family History Mother Family History: (52yo), Other (complication of EtOHic) Father Family History: CAD, DM, (67yo), Other (HTN) Brother 1 Family History: (72yo unkown cause) Brother 2 Family History: None Sister 2 Family History: , Other (unknown cause) Sister 1 Family History: , Other (Drug over dose) Sister 3 Family History: None - Past Social History Smoke: <1 pack per day (/2 ppd) Occupation: disabled Alcohol: Occassional (1 beer daily) Drugs: None Lives: With Family Domestic Violence: Negative - Health Maintenance Health Maintenance: Cholesterol Pneumonia Vaccine: No Resuscitation Status: Resusciation Status Resuscitation Status Full Code - Unable to Obtain History Unable to Obtain: Yes Review of Systems - Review of Systems Constitutional: Fever, Chills, Weakness Eyes: negative: pain, vision change, conjunctivae inflammation ENT: negative: Ear Pain, Ear Discharge, Nose Pain, Nose Discharge, Nose Congestion, Mouth Pain, Mouth Swelling, Throat Swelling Respiratory: negative: Cough, Dry, Shortness of Breath, Hemoptysis, SOB with Excertion, Pleuritic Pain, Sputum, Wheezing Cardiovascular: negative: Chest Pain, Palpitations, Orthopnea, Paroxysmal Noc. Dyspnea, Edema, Light Headedness Gastrointestinal: Nausea, Vomiting, Abdominal Pain. negative: Constipation, Melena, Hematochezia Genitourinary: negative: Dysuria, Frequency, Incontinence, Hematuria Musculoskeletal: negative: Neck Pain, Shoulder Pain Skin: negative: Rash Neurological: Weakness - Medications/Allergies Allergies/Adverse Reactions: Allergies Allergy/AdvReac Type Severity Reaction Status Date / Time oxycodone AdvReac Vomiting Verified 09/14/16 21:40 Current Inpatient Medications: Current Inpatient Medications Enoxaparin Sodium (Lovenox) 30 mg SQ QD LAM Stop: 08/18/16 22:01 Sodium Chloride (Normal Saline) 1,000 mls @ 100 mls/hr IV Q10H LAM Last Admin: 08/05/16 19:52 Dose: 100 mls/hr Levofloxacin/Dextrose 500 mg/ (PREMIX BAG) 100 mls @ 100 mls/hr IV DAILY LAM Metronidazole/Sodium Chloride (500 mg/ PREMIX BAG) 100 mls @ 100 mls/hr IV Q8H LAM Morphine Sulfate (Depodur) 2 mg IVP Q2 PRN PRN Reason: Severe Pain Exam - Exam Vital Signs: 56yo white male with a history of recurrent pancreatitis. at one time has a [employer] in for about a year. has been doing well. General: Alert, Oriented to Person, Oriented to Place, Oriented to Time, Cooperative, Moderate distress HEENT: Atraumatic, PERRLA, EOMI, Mouth Mucous membr. moist/[place], Nose Mucous membr. moist/[place] Neck: Normal Range of Motion Lungs: Clear to auscultation, Normal air movement, Speaks full Sentences Cardiovascular: Regular rate, Normal S1, Normal S2, No murmurs Abdomen: Soft, No hepatospenomegaly, No masses, Other (tenderness in the right and epigastric area, no guarding or rebaound tenderness noted.), Decreased Bowel Sounds. No: Distended Integumentary: Normal, [place], Warm, Dry Extremities: No clubbing, No cyanosis, No edema, Normal pulses, No tenderness/ swelling Neurological: Normal gait, Normal speech, Strength Equal Bilat, Normal tone, Sensation intact, Cranial nerves 3-12 NL, Reflexes 2+ Psych/Mental Status: Mental status NL, Mood NL, Appropriate Affect, Intact Judgment Assessment/Plan - Assessment/Plan (1) Acute pancreatitis Status: Acute Qualifiers: Pancreatitis type: unspecified pancreatitis type Acute pancreatitis complication: unspecified Qualified Code(s): K85.90 - Acute pancreatitis without necrosis or infection, unspecified Assessment: NPO and pain management (2) Essential hypertension Status: Acute Assessment: continue with home meds VTE Assessment - RISK FACTOR SCORE VTE RISK FACTOR SCORES: AGE 40-60 YEARS, ANTICIPATED BED CONFINEMENT OR IMMOBILIZATION > 24 HOURS - RISK VTE MODERATE RISK: SCORE OF 2 (RISK PROXIMAL DVT 2-4%) PROPHYAXIS NEEDED
[2016-08-05 21:45] VITALS: BMI 25.7
[2016-08-05] MEDS ORDERED: SALINE FLUSH 10 ML DISP.SYRIN IVF ONE ×2 (21:47→23:48)
[2016-08-05] MEDS: MORPHINE SULFATE 2 MG/ML DISP.SYRIN IVP PRN ×2 (21:50→23:51)
[2016-08-05] MEDS ORDERED: LEVOFLOXACIN 500MG/D5W 100ML 100 ML IV ONE (21:58)
[2016-08-05] MEDS ORDERED: ONDANSETRON HCL/PF 4 MG/ 2ML VIAL IVP PRN (21:58)
[2016-08-05] MEDS ORDERED: metroNIDAZOLE/SODIUM CHLORIDE 100 ML IV ONE (21:59)
[2016-08-05] MEDS: metroNIDAZOLE/SODIUM CHLORIDE 500 MG in PREMIX BAG 1 BAG IV SCH (22:10)
[2016-08-05] MEDS: ENOXAPARIN SODIUM 30 MG/0.3 ML DISP.SYRIN SQ SCH (22:14)
[2016-08-06] MEDS: LEVOFLOXACIN 500MG/D5W 100ML 500 MG in PREMIX BAG 1 BAG IV SCH ×2 (00:01→10:04)
[2016-08-06] MEDS ORDERED: 0.9 % SODIUM CHLORIDE 50 ML IV ONE (00:32)
[2016-08-06] MEDS ORDERED: metroNIDAZOLE/SODIUM CHLORIDE 100 ML IV ONE ×3 (00:32→14:54)
[2016-08-06] MEDS ORDERED: PANTOPRAZOLE SODIUM INJ. 40 MG VIAL ONE (00:32)
[2016-08-06] MEDS ORDERED: SALINE FLUSH 10 ML DISP.SYRIN IVF ONE ×5 (01:58→22:29)
[2016-08-06] MEDS: MORPHINE SULFATE 2 MG/ML DISP.SYRIN IVP PRN ×9 (02:01→22:33)
[2016-08-06] MEDS: metroNIDAZOLE/SODIUM CHLORIDE 500 MG in PREMIX BAG 1 BAG IV SCH ×3 (04:55→21:20)
[2016-08-06 05:45] LABS: APPEARANCE,URINE CLOUDY (CLEAR); BARBITURATES NEGATIVE ng/mL (<300); COLOR,URINE AMBER (YELLOW); METHAMPHETAMINE NEGATIVE ng/mL (<1000); OCCULT BLOOD,URINE NEGATIVE (NEGATIVE); PH URINE 5.5 (5.0 - 8.0); UROBILINOGEN URINE 0.2 Eu (0.2-1.0)
[2016-08-06 05:46] LABS: AMPHETAMINE NEGATIVE ng/mL (<1000); CANNABINOIDS NON NEGATIVE ng/mL (<50); COCAINE NEGATIVE ng/mL (<150); METHYLENEDIOXYMETHAMPHETAMINE NEGATIVE ng/mL (<500)
[2016-08-06 06:15] LABS: BASOPHILS % 0.3 (0.0-1.5); EOSINOPHILS % 1.7 % (0.0-6.8); MEAN CORPUSCULAR HEMOGLOBIN 27.7 pg (28.0-34.0); MEAN CORPUSCULAR VOLUME 88.5 fl (80.0-100.0); MONOCYTES % 4.1 % (0.0-11.0); NEUTROPHILS # 6.7 # k/uL (1.4-7.7)
[2016-08-06 06:29] LABS: eGFR (African) > 60; eGFR (Non-African) > 60
[2016-08-06] MEDS: 0.9 % SODIUM CHLORIDE 1,000 ML IV SCH ×3 (06:42→22:25)
[2016-08-06] MEDS: PANTOPRAZOLE SODIUM 40 MG in 0.9 % SODIUM CHLORIDE 50 ML IV SCH (08:16)
[2016-08-06] MEDS ORDERED: LEVOFLOXACIN 500MG/D5W 100ML 100 ML IV ONE (10:01)
[2016-08-06 11:51] LABS: LIPASE >3000 U/L (13-60)
--- NOTE | 2016-08-06 13:14 | Inpatient Progress Note ---
Subjective - Required Recertification Statement I anticipate X number of days because-include discharge plan: 2 - Review of Systems Events since last encounter: Carl seems to be doing better today. Is still complaining of a lot of pain, has had some nausea but no vomiting noted. No flatus or BM. Does not complain of abd distention. General: Denies: Chills Gastrointestinal: Nausea, Abdominal Pain. Denies: Vomiting, Diarrhea, Constipation, Melena, Hematochezia Objective - Exam Vitals and I&O: Vital Signs Temp 97.1 F L 08/06/16 10:00 Pulse 54 L 08/06/16 10:00 Resp 22 08/06/16 10:00 BP 137/85 08/06/16 10:00 Pulse Ox 98 08/06/16 10:00 Intake & Output 08/05/16 08/06/16 08/06/16 23:59 11:59 23:59 Intake Total 0 Output Total 300 Balance -300 Weight 72.121 kg Intake: Oral 0 Output: Urine 300 Other: Voiding Method Urinal Urinal General: Alert, Oriented to Person, Oriented to Place, Oriented to Time, Cooperative Neck: Supple, No JVD Lungs: Clear to auscultation, Normal air movement, Speaks full Sentences. No: Wheezes, Rales, Rhonchi Cardiovascular: Regular rate, Normal S1, Normal S2, No murmurs Abdomen: No masses, Other (tenderness in the epigastric and lUQ area), Decreased Bowel Sounds (improved some over yesterday). No: Distended Extremities: No clubbing, No cyanosis, No edema Skin: Normal, [place], Warm Neurological: Normal gait, Normal speech Psych/Mental Status: Mental status NL, Mood NL, Appropriate Affect, Intact Judgment - Results Results: Laboratory Results WBC 10.30 K/ul (4.00-12.00) 08/06/16 06:10 RBC 4.34 M/ul (3.90-5.20) 08/06/16 06:10 Hgb 12.0 g/dL (12.0-18.0) 08/06/16 06:10 Hct 38.4 % (37.0-53.0) 08/06/16 06:10 MCV 88.5 fl (80.0-100.0) 08/06/16 06:10 MCH 27.7 pg (28.0-34.0) L 08/06/16 06:10 MCHC 31.3 g/dL (30.0-36.0) 08/06/16 06:10 RDW 14.0 % (11.3-14.3) 08/06/16 06:10 Plt Count 201 K/mm3 (130-400) 08/06/16 06:10 Neut % (Auto) 65.4 % (39.0-79.0) 08/06/16 06:10 Lymph % (Auto) 27.3 % (16.0-50.0) 08/06/16 06:10 [place] % (Auto) 4.1 % (0.0-11.0) 08/06/16 06:10 Eos % (Auto) 1.7 % (0.0-6.8) 08/06/16 06:10 Baso % (Auto) 0.3 (0.0-1.5) 08/06/16 06:10 Neut # 6.7 # k/uL (1.4-7.7) 08/06/16 06:10 Lymph # 2.8 # k/uL (0.6-4.0) 08/06/16 06:10 [place] # 0.4 # k/uL (0.0-0.9) 08/06/16 06:10 Eos # 0.2 # k/uL (0.0-0.6) 08/06/16 06:10 Baso # 0.0 # k/uL (0.0-0.5) 08/06/16 06:10 Reactive Lymphs % 1.3 % (0.0-5.0) 08/06/16 06:10 Reactive Lymphs # 0.1 # k/uL (0.0-0.8) 08/06/16 06:10 Sodium 137 mmol/L (136-145) 08/06/16 06:10 Potassium 3.9 mmol/L (3.5-5.0) 08/06/16 06:10 Chloride 108 mmol/L (98-110) 08/06/16 06:10 Carbon Dioxide 24 mmol/L (20-32) 08/06/16 06:10 BUN 12 mg/dL (10-26) 08/06/16 06:10 Creatinine 0.7 mg/dL (0.4-1.5) 08/06/16 06:10 Estimated Creat Clear 121 08/06/16 06:10 Est GFR ( Amer) > 60 (60-) 08/06/16 06:10 Est GFR (Non-Af Amer) > 60 (60-) 08/06/16 06:10 Glucose 86 mg/dL (70-99) 08/06/16 06:10 Calcium 8.5 mg/dL (8.5-10.5) 08/06/16 06:10 Total Bilirubin 0.5 mg/dL (0.2-1.2) 08/06/16 06:10 AST 20 U/L (0-41) 08/06/16 06:10 ALT 16 U/L (0-45) 08/06/16 06:10 Alkaline Phosphatase 52 U/L (46-116) 08/06/16 06:10 Total Protein 6.0 g/dL (6.0-8.5) 08/06/16 06:10 Albumin 3.4 g/dL (3.0-5.5) 08/06/16 06:10 Amylase 257 U/L (20-104) H 08/06/16 06:10 Lipase >3000 U/L (13-60) H 08/05/16 16:38 Urine Color [place] (YELLOW) 08/05/16 20:43 Urine Appearance Cloudy (CLEAR) 08/05/16 20:43 Urine pH 5.5 (5.0 - 8.0) 08/05/16 20:43 Ur Specific [place] >=1.030 (1.010-1.030) H 08/05/16 20:43 Urine Protein Trace mg/dL (NEGATIVE) 08/05/16 20:43 Urine Ketones 2+ mg/dL (NEGATIVE) H 08/05/16 20:43 Urine Occult Blood Negative (NEGATIVE) 08/05/16 20:43 Urine Nitrite Negative (NEGATIVE) 08/05/16 20:43 Urine Bilirubin 1+ (NEGATIVE) H 08/05/16 20:43 Urine Urobilinogen 0.2 Eu (0.2-1.0) 08/05/16 20:43 Ur Leukocyte Esterase Negative (NEGATIVE) 08/05/16 20:43 Urine Glucose Negative mg/dL (NEGATIVE) 08/05/16 20:43 Opiates Screen Negative (2000 ng/mL) 08/05/16 20:43 Oxycodone Screen Negative ng/mL (<100) 08/05/16 20:43 Methadone Screen Negative ng/mL (<300) 08/05/16 20:43 POC Urine Barbiturates Negative ng/mL (<300) 08/05/16 20:43 Amphetamines Screen Negative ng/mL (<1000) 08/05/16 20:43 POC Ur Methamphetamine Negative ng/mL (<1000) 08/05/16 20:43 MDMA Negative ng/mL (<500) 08/05/16 20:43 Benzodiazepines Screen Negative ng/mL (<300) 08/05/16 20:43 Cocaine Screen Negative ng/mL (<150) 08/05/16 20:43 Marijuana (THC) Screen Non negative ng/mL (<50) H 08/05/16 20:43 Ethyl Alcohol 0.8 MG/DL (<10.0) 08/05/16 20:12 Assessment/Plan - Assessment/Plan (1) Acute pancreatitis Status: Acute Current Visit: Yes Qualifiers: Pancreatitis type: unspecified pancreatitis type Acute pancreatitis complication: unspecified Qualified Code(s): K85.90 - Acute pancreatitis without necrosis or infection, unspecified Assessment: improved, amylase has to 257, pain is improving, NGT does appear to have some flecks of blood, Hgb and Hct is stable. WBC stable (2) Essential hypertension Status: Acute Current Visit: No Assessment: elevated some but is off antihypertensive medications.
[2016-08-06] MEDS: ENOXAPARIN SODIUM 30 MG/0.3 ML DISP.SYRIN SQ SCH (21:22)
[2016-08-06] MEDS ORDERED: 0.9 % SODIUM CHLORIDE 1,000 ML IV ONE (22:25)
[2016-08-07] MEDS ORDERED: SALINE FLUSH 10 ML DISP.SYRIN IVF ONE ×2 (02:10→06:06)
[2016-08-07] MEDS: MORPHINE SULFATE 2 MG/ML DISP.SYRIN IVP PRN ×2 (02:12→06:09)
[2016-08-07] MEDS ORDERED: PANTOPRAZOLE SODIUM INJ. 40 MG VIAL ONE (03:45)
[2016-08-07] MEDS ORDERED: metroNIDAZOLE/SODIUM CHLORIDE 100 ML IV ONE ×2 (03:45→13:41)
[2016-08-07] MEDS: metroNIDAZOLE/SODIUM CHLORIDE 500 MG in PREMIX BAG 1 BAG IV SCH ×2 (05:30→14:11)
[2016-08-07] MEDS: 0.9 % SODIUM CHLORIDE 1,000 ML IV SCH ×3 (06:46→14:11)
[2016-08-07 07:02] LABS: BASOPHILS % 0.3 (0.0-1.5); EOSINOPHILS % 2.1 % (0.0-6.8); MEAN CORPUSCULAR HEMOGLOBIN 29.1 pg (28.0-34.0); MEAN CORPUSCULAR VOLUME 89.3 fl (80.0-100.0); MONOCYTES % 5.8 % (0.0-11.0); NEUTROPHILS # 6.4 # k/uL (1.4-7.7)
[2016-08-07 07:16] LABS: eGFR (African) > 60; eGFR (Non-African) > 60
--- NOTE | 2016-08-07 08:19 | Discharge Summary ---
Discharge Summary - Discharge Sumary History of Present Illness: 56yo white male with a history or recurrent pancreatitis. Patient states that he started to have some abdominal pain and nausea and vomiting about 3-4 days ago. Has had some fever and chills but has not checked his temperature. Patient states that he has not bee able to keep much down to the last several days, urinary output has dropped down. Patient states that he has had a sip of beer several days ago, otherwise has not had any alcohol. Has had some small / flecks of blood in his emesis. No melena or hematachezia noted. Patient was seen in the ED and found to have an elevated amylase level. Admitted for further evaluation and treatment. Condition at Discharge: Stable Consultations this Visit: None Allergies/Adverse Reactions: Allergies Allergy/AdvReac Type Severity Reaction Status Date / Time oxycodone AdvReac Vomiting Verified 09/14/16 21:40 - Final Diagnosis (1) Acute pancreatitis Problems: improved (2) Essential hypertension Problems: stable
[2016-08-07] MEDS ORDERED: HYDROCHLOROTHIAZIDE 25 MG TABLET PO SCH (09:00)
[2016-08-07] MEDS ORDERED: LISINOPRIL 20 MG TABLET PO SCH (09:00)
[2016-08-07] MEDS ORDERED: LIPASE/PROTEASE/AMYLASE 1 EACH CAPSULE.DR PO SCH (09:00)
[2016-08-07] MEDS ORDERED: LEVOFLOXACIN 500MG/D5W 100ML 100 ML IV ONE (09:36)
[2016-08-07] MEDS ORDERED: 0.9 % SODIUM CHLORIDE 1,000 ML IV ONE (09:37)
[2016-08-07] MEDS: PANTOPRAZOLE SODIUM 40 MG in 0.9 % SODIUM CHLORIDE 50 ML IV SCH (10:04)
[2016-08-07] MEDS: LEVOFLOXACIN 500MG/D5W 100ML 500 MG in PREMIX BAG 1 BAG IV SCH (10:30)
[2016-08-07] MEDS: LIPASE/PROTEASE/AMYLASE 1 EACH CAPSULE.DR PO SCH ×2 (13:49→17:46)
--- NOTE | 2016-08-07 17:31 | Inpatient Progress Note ---
Subjective - Required Recertification Statement I anticipate X number of days because-include discharge plan: 1 - Review of Systems Events since last encounter: Still having some pain in the abd area. BM has been Ok. Still having some nausea. Gastrointestinal: Nausea, Abdominal Pain. Denies: Vomiting, Diarrhea, Constipation Genitourinary: Denies: Dysuria Objective - Exam Vitals and I&O: Vital Signs Temp 99.5 F 08/07/16 14:00 Pulse 58 L 08/07/16 14:00 Resp 16 08/07/16 14:00 BP 115/76 08/07/16 14:00 Pulse Ox 99 08/07/16 14:00 Intake & Output 08/06/16 08/07/16 08/07/16 23:59 11:59 23:59 Intake Total 1999 2199 2249 Balance 1999 2199 2249 Weight 72.121 kg 72.121 kg Intake: IV 1999 2199 1650 Right Forearm 1999 2199 1650 Oral 0 600 Other: Voiding Method Urinal Urinal # Voids 2 3 General: Alert, Oriented to Person, Oriented to Place, Oriented to Time, Cooperative, Mild distress Neck: Supple, No JVD Lungs: Clear to auscultation, Normal air movement. No: Wheezes, Rales, Rhonchi Cardiovascular: Regular rate, Normal S1, Normal S2, No murmurs Abdomen: Soft, Other (tenderness in the RUQ and epigastric area, no guarding or rebound tenderness at this time. ), Decreased Bowel Sounds. No: Distended Extremities: No clubbing, No cyanosis Skin: Normal, [place], Warm, Dry Psych/Mental Status: Mental status NL, Mood NL, Appropriate Affect - Results Results: Laboratory Results WBC 9.54 K/ul (4.00-12.00) 08/07/16 06:25 RBC 4.62 M/ul (3.90-5.20) 08/07/16 06:25 Hgb 13.4 g/dL (12.0-18.0) 08/07/16 06:25 Hct 41.3 % (37.0-53.0) 08/07/16 06:25 MCV 89.3 fl (80.0-100.0) 08/07/16 06:25 MCH 29.1 pg (28.0-34.0) 08/07/16 06:25 MCHC 32.6 g/dL (30.0-36.0) 08/07/16 06:25 RDW 13.7 % (11.3-14.3) 08/07/16 06:25 Plt Count 185 K/mm3 (130-400) 08/07/16 06:25 Neut % (Auto) 66.8 % (39.0-79.0) 08/07/16 06:25 Lymph % (Auto) 23.4 % (16.0-50.0) 08/07/16 06:25 [place] % (Auto) 5.8 % (0.0-11.0) 08/07/16 06:25 Eos % (Auto) 2.1 % (0.0-6.8) 08/07/16 06:25 Baso % (Auto) 0.3 (0.0-1.5) 08/07/16 06:25 Neut # 6.4 # k/uL (1.4-7.7) 08/07/16 06:25 Lymph # 2.2 # k/uL (0.6-4.0) 08/07/16 06:25 [place] # 0.6 # k/uL (0.0-0.9) 08/07/16 06:25 Eos # 0.2 # k/uL (0.0-0.6) 08/07/16 06:25 Baso # 0.0 # k/uL (0.0-0.5) 08/07/16 06:25 Reactive Lymphs % 1.5 % (0.0-5.0) 08/07/16 06:25 Reactive Lymphs # 0.2 # k/uL (0.0-0.8) 08/07/16 06:25 Sodium 133 mmol/L (136-145) L 08/07/16 06:25 Potassium 4.3 mmol/L (3.5-5.0) 08/07/16 06:25 Chloride 104 mmol/L (98-110) 08/07/16 06:25 Carbon Dioxide 20 mmol/L (20-32) 08/07/16 06:25 BUN 9 mg/dL (10-26) L 08/07/16 06:25 Creatinine 0.8 mg/dL (0.4-1.5) 08/07/16 06:25 Estimated Creat Clear 106 08/07/16 06:25 Est GFR ( Amer) > 60 (60-) 08/07/16 06:25 Est GFR (Non-Af Amer) > 60 (60-) 08/07/16 06:25 Glucose 61 mg/dL (70-99) L 08/07/16 06:25 Calcium 9.0 mg/dL (8.5-10.5) 08/07/16 06:25 Total Bilirubin 1.1 mg/dL (0.2-1.2) 08/07/16 06:25 AST 27 U/L (0-41) 08/07/16 06:25 ALT 13 U/L (0-45) 08/07/16 06:25 Alkaline Phosphatase 69 U/L (46-116) 08/07/16 06:25 Total Protein 6.5 g/dL (6.0-8.5) 08/07/16 06:25 Albumin 3.9 g/dL (3.0-5.5) 08/07/16 06:25 Amylase 164 U/L (20-104) H 08/07/16 06:25 Lipase >3000 U/L (13-60) H 08/05/16 16:38 Urine Color [place] (YELLOW) 08/05/16 20:43 Urine Appearance Cloudy (CLEAR) 08/05/16 20:43 Urine pH 5.5 (5.0 - 8.0) 08/05/16 20:43 Ur Specific [place] >=1.030 (1.010-1.030) H 08/05/16 20:43 Urine Protein Trace mg/dL (NEGATIVE) 08/05/16 20:43 Urine Ketones 2+ mg/dL (NEGATIVE) H 08/05/16 20:43 Urine Occult Blood Negative (NEGATIVE) 08/05/16 20:43 Urine Nitrite Negative (NEGATIVE) 08/05/16 20:43 Urine Bilirubin 1+ (NEGATIVE) H 08/05/16 20:43 Urine Urobilinogen 0.2 Eu (0.2-1.0) 08/05/16 20:43 Ur Leukocyte Esterase Negative (NEGATIVE) 08/05/16 20:43 Urine Glucose Negative mg/dL (NEGATIVE) 08/05/16 20:43 Opiates Screen Negative (2000 ng/mL) 08/05/16 20:43 Oxycodone Screen Negative ng/mL (<100) 08/05/16 20:43 Methadone Screen Negative ng/mL (<300) 08/05/16 20:43 POC Urine Barbiturates Negative ng/mL (<300) 08/05/16 20:43 Amphetamines Screen Negative ng/mL (<1000) 08/05/16 20:43 POC Ur Methamphetamine Negative ng/mL (<1000) 08/05/16 20:43 MDMA Negative ng/mL (<500) 08/05/16 20:43 Benzodiazepines Screen Negative ng/mL (<300) 08/05/16 20:43 Cocaine Screen Negative ng/mL (<150) 08/05/16 20:43 Marijuana (THC) Screen Non negative ng/mL (<50) H 08/05/16 20:43 Ethyl Alcohol 0.8 MG/DL (<10.0) 08/05/16 20:12 Assessment/Plan - Assessment/Plan (1) Acute pancreatitis Status: Acute Current Visit: Yes Qualifiers: Pancreatitis type: unspecified pancreatitis type Acute pancreatitis complication: unspecified Qualified Code(s): K85.90 - Acute pancreatitis without necrosis or infection, unspecified Assessment: Patient has tolerated clear liquids well will advance to regular and recheck amylase in the AM. (2) Essential hypertension Status: Acute Current Visit: No Assessment: stable with medications
[2016-08-07 19:24] VITALS: BP 122/68
== END 2016-08-07 19:20 | disposition home or self-care (01) | DRG 440 ==
LOC: ED 16:18 → SOUTH 21:22
PROVIDERS: ADMIT Family Medicine; ATTEND Family Medicine
DX: K85.90 Acute pancreatitis without necrosis or infection, unspecified (principal); I10 Essential (primary) hypertension
CPT/HCPCS: 36415; 80053; 80320; 80377; 81002; 82150; 83690; 85025; 99222; 99232; 99238; 99284; J1650; J1885; J1956; J2270; J2405; J3490; G0480; G0481; J7030; S1016

== ENCOUNTER 2016-09-14 21:27 | Observation (INO) | payer MEDICARE, OTHER ==
[2016-09-14] MEDS ORDERED: 0.9 % SODIUM CHLORIDE 1,000 ML IV ONE ×2 (21:38→22:28)
[2016-09-14 22:01] LABS: BASOPHILS % 0.5 (0.0-1.5); EOSINOPHILS % 2.8 % (0.0-6.8); MEAN CORPUSCULAR HEMOGLOBIN 29.1 pg (28.0-34.0); MEAN CORPUSCULAR VOLUME 88.5 fl (80.0-100.0); MONOCYTES % 5.3 % (0.0-11.0); NEUTROPHILS # 6.1 # k/uL (1.4-7.7)
[2016-09-14 22:13] LABS: eGFR (African) > 60; eGFR (Non-African) > 60
[2016-09-14] MEDS ORDERED: ONDANSETRON HCL/PF 4 MG/ 2ML VIAL IVP ONE (22:21)
--- NOTE | 2016-09-14 22:21 | ED Physician Documentation ---
General Adult - HISTORIAN Historian: patient - HPI Stated Complaint: RUQ abdominal pain Chief Complaint: General Adult Onset: days ago Further Comments: yes (56 year old male patient presents with complaints of RUQ pain. Patient reports history of pancreatitis. Strong odor of ETOH. Old records reviewed.) - ROS CONST: recent illness EYES/ENT: none CVS/RESP: none GI/: abdominal pain, nausea MS/SKIN/LYMPH: none NEURO/PSYCH: denies: headache - PAST HX Past History: COPD, hypertension Other History: pancreatitis Surgeries/Procedures: other (J tube placement) Allergies/Adverse Reactions: Allergies Allergy/AdvReac Type Severity Reaction Status Date / Time oxycodone AdvReac Vomiting Verified 09/14/16 21:40 - SOCIAL HX Smoking History: cigarettes Alcohol Use: heavy - FAMILY HX Family History: No - VITAL SIGNS Vital Signs: Vital Signs Temp Pulse Resp BP Pulse Ox 98.3 F 67 18 124/75 98 09/14/16 21:30 09/14/16 21:30 09/14/16 21:30 09/14/16 21:30 09/14/16 21:30 - REVIEWED ASSESSMENTS Nursing Assessment Reviewed: Yes Vitals Reviewed: Yes Progress - Progress Progress: Patient reports he is taking his Zenpap qd. Patient reported to Dr Rodgers on 09/07 that he had been off this medicaton and had not taken it for awhile. [address] Rodgers - reviewed lab results, orders for observation admission and use Morphine for pain, sparingly. Patient agrees to admission. ED Results Lab/Radiology - Lab Results Lab Results: Lab Results 09/14/16 09/14/16 21:50 21:38 WBC 10.70 K/ul K/ul (4.00-12.00) RBC 4.48 M/ul M/ul (3.90-5.20) Hgb 13.0 g/dL g/dL (12.0-18.0) Hct 39.6 % % (37.0-53.0) MCV 88.5 fl fl (80.0-100.0) MCH 29.1 pg pg (28.0-34.0) MCHC 32.9 g/dL g/dL (30.0-36.0) RDW 14.9 % H % (11.3-14.3) Plt Count 311 K/mm3 K/mm3 (130-400) Neut % (Auto) 57.3 % % (39.0-79.0) Lymph % (Auto) 32.2 % % (16.0-50.0) [place] % (Auto) 5.3 % % (0.0-11.0) Eos % (Auto) 2.8 % % (0.0-6.8) Baso % (Auto) 0.5 (0.0-1.5) Neut # 6.1 # k/uL # k/uL (1.4-7.7) Lymph # 3.4 # k/uL # k/uL (0.6-4.0) [place] # 0.6 # k/uL # k/uL (0.0-0.9) Eos # 0.3 # k/uL # k/uL (0.0-0.6) Baso # 0.0 # k/uL # k/uL (0.0-0.5) Reactive Lymphs % 1.9 % % (0.0-5.0) Reactive Lymphs # 0.2 # k/uL # k/uL (0.0-0.8) Sodium 137 mmol/L mmol/L (136-145) Potassium 4.3 mmol/L mmol/L (3.5-5.0) Chloride 110 mmol/L mmol/L (98-110) Carbon Dioxide 25 mmol/L mmol/L (20-32) BUN 21 mg/dL mg/dL (10-26) Creatinine 1.2 mg/dL mg/dL (0.4-1.5) Estimated Creat Clear 67 Est GFR ( Amer) > 60 (60 - ) Est GFR (Non-Af Amer) > 60 (60 - ) Glucose 105 mg/dL H mg/dL (70-99) Calcium 9.8 mg/dL mg/dL (8.5-10.5) Total Bilirubin 0.4 mg/dL mg/dL (0.2-1.2) AST 27 U/L U/L (0-41) ALT 15 U/L U/L (0-45) Alkaline Phosphatase 60 U/L U/L (46-116) Total Protein 7.9 g/dL g/dL (6.0-8.5) Albumin 4.9 g/dL g/dL (3.0-5.5) Amylase 243 U/L H U/L (20-104) Ethyl Alcohol 103.2 MG/DL H MG/DL (<10.0) - Orders Orders: ED Orders Category Date Time Status Place IV Lock 1T Care 09/14/16 21:38 Active AMYLASE Stat Lab 09/14/16 21:50 Completed CBC/PLATELET/DIFF Stat Lab 09/14/16 21:38 Completed CMP Stat Lab 09/14/16 21:50 Completed ETHANOL MEDICAL USE ONLY Stat Lab 09/14/16 21:50 Completed UA W/MICRO IF INDICATED Stat Lab 09/14/16 21:38 Ordered 0.9 % Sodium Chloride [Normal Saline] 1,000 ml Med 09/14/16 21:38 Discontinued IV NOW General Adult Physical Exam - PHYSICAL EXAM GENERAL APPEARANCE: STONG ODOR OF ETOH EENT: eye inspection normal, BONILLA RESPIRATORY: no resp distress, chest non-tender, breath sounds normal CVS: reg rate & rhythm, heart sounds normal, equal pulses, no murmur, no gallop , PMI nml, no JVD, no friction rub, 24 ABDOMEN: normal bowel sounds, no distension, tenderness (RUQ), decreased BS SKIN: normal color, warm/dry, NR, INT, PAL, DR EXTREMITIES: non-tender, normal range of motion, no evidence of injury, no edema , J, [employer] NEURO: oriented X3, CN's nml as tested, motor nml, sensation nml, mood/affect nml Discharge Clincal Impression: RUQ abdominal pain, Nausea alone Chronic pancreatitis Qualifiers: Pancreatitis type: alcohol induced Qualified Code(s): K86.0 - Alcohol-induced chronic pancreatitis Elevated ETOH level Qualifiers: Blood alcohol level: 100-119 mg/100 ml Qualified Code(s): Y90.5 - Blood alcohol level of 100-119 mg/100 ml Referrals: Scottie Rodgers MD [Primary Care Provider] - 2 Days Condition: Stable Disposition: ADMITTED INPATIENT Decision to Admit: NO Decision Time: 22:30
[2016-09-14] MEDS ORDERED: MORPHINE SULFATE 2 MG/ML DISP.SYRIN IVP ONE (22:28)
[2016-09-14] MEDS ORDERED: ONDANSETRON HCL/PF 4 MG/ 2ML VIAL IVP PRN (22:45)
[2016-09-14 23:42] VITALS: BMI 21.2
[2016-09-15] MEDS: DEXTROSE 5 %-0.45 % NACL 1,000 ML IV SCH ×3 (02:23→13:00)
[2016-09-15] MEDS: MORPHINE SULFATE 2 MG/ML DISP.SYRIN IVP PRN ×3 (02:23→11:54)
[2016-09-15] MEDS ORDERED: LISINOPRIL 20 MG TABLET PO SCH (09:00)
[2016-09-15] MEDS ORDERED: BUSPIRONE HCL 5 MG TABLET PO SCH (09:00)
[2016-09-15] MEDS ORDERED: PANTOPRAZOLE SODIUM 40 MG TABLET ONE (09:39)
[2016-09-15 11:24] LABS: eGFR (African) > 60; eGFR (Non-African) > 60
--- NOTE | 2016-09-15 14:15 | Diagnostic Imaging Report ---
[facility] [place] [facility] [address] [facility].[address] [address] Report Submission Date: Sep 15, 2016 10:12:13 AM CDT Patient Study Name: JOE GEORGE Date: Sep 15, 2016 8:32:29 AM CDT Modality Type: US Gender: M Description: US ABD LIMITED : 62 Institution: [facility] [place] [facility] Physician [place] [place]/MED SURG Ultrasound right upper quadrant Clinical history right upper quadrant pain pancreatitis Technique: Ultrasonography and color Doppler was performed of the right upper quadrant FINDINGS: The liver is increased in echogenicity consistent with fatty change. The head of the pancreas is enlarged and heterogeneous measuring 3.6 x 3.4 cm. Cystic changes are present in the enlarged pancreatic head. There is no ascites. The liver is not enlarged measuring 13.6 cm. The portal vein is patent with blood flow direction of flow toward the liver. The right kidney is normal in size and echogenicity measuring 10.6 x 5.3 by 7.3 cm. There is a right renal cyst measuring 15 mm. The gallbladder shows sludge in the dependent gallbladder and mild gallbladder wall thickening at 3 mm. Common bile duct is dilated at 7 mm. IMPRESSION: Enlarged heterogeneous head of the pancreas with cystic change. Considerations are pancreatitis or neoplasm Dilated common bile duct Right renal cyst Fatty change in the liver Borderline gallbladder wall thickening and sludge in the dependent gallbladder lumen Electronically signed on Sep 15, 2016 10:12:13 AM CDT by: Frankie AGUILAR
--- NOTE | 2016-09-15 14:22 | Discharge Summary ---
Discharge Summary - Discharge Sumary History of Present Illness: Patient is a 56-year-old white male with known chronic pancreatitis. Recently patient started drinking alcohol again. Patient does having some increasing abdominal pain with nausea and vomiting. Patient was seen in the ED was felt to be having an acute exacerbation of his chronic pancreatitis and was subsequently admitted for further evaluation and treatment. Condition at Discharge: Stable Consultations this Visit: None Procedures this Visit: None Allergies/Adverse Reactions: Allergies Allergy/AdvReac Type Severity Reaction Status Date / Time oxycodone AdvReac Vomiting Verified 09/14/16 21:40 - Final Diagnosis (3) Essential hypertension Problems: stable, continue home meds (4) Acute pancreatitis Problems: improved, patient is to be scheduled for MRI scan to look at possible solid structure at the head of the pancreas. Advised not to Drink ANY alcohol.
[2016-09-15 15:50] VITALS: BP 126/78
[2016-09-16] MEDS ORDERED: PANTOPRAZOLE SODIUM 40 MG TABLET PO SCH (09:00)
== END 2016-09-15 15:47 | disposition home or self-care (01) ==
LOC: ED 21:27 → SOUTH 22:37
PROVIDERS: ADMIT Family Medicine; ATTEND Family Medicine
DX: K85.90 Acute pancreatitis without necrosis or infection, unspecified (principal); I10 Essential (primary) hypertension
CPT/HCPCS: 76705; 80053; 82150; 82270; 85025; G0378; G0480; J2270; J2405; J7030; 80320; 96361; 96374; 96375; 96376; 99284; S1016; S5010

== ENCOUNTER 2016-09-17 06:49 | Outpatient (CLI) | payer MEDICARE, OTHER ==
--- NOTE | 2016-09-19 14:36 | Diagnostic Imaging Report ---
DEION RODRIGUEZ [facility] [address] Count Includes [facility] [address] [place], [place]. [address] Report Submission Date: Sep 18, 2016 4:22:02 PM CDT Patient Study Name: JOE GEORGE Date: Sep 17, 2016 7:48:33 AM CDT Modality Type: MR Gender: M Description: MRI ABDOMEN W & W/O CONTRAST : 62 Institution: [facility] Physician: DEION RODRIGUEZ Examination: MRI abdomen attention pancreas. MRCP. History: Chronic pancreatitis. Possible pancreatic head cyst/lesion. Comparison exam: 22 May 2016 Technique: MRI abdomen attention pancreas without and with contrast. MRCP. Findings: Fullness involving the pancreatic head. Centrally is an area demonstrating low signal T1 and high signal T2 with slightly lobulated margins. Overall dimension of 3.1 cm. Numerous 1 mm low density structures centrally along the dependent margin. Central pancreatic duct is dilated to 5.8 mm from the head through to the tail. On the postcontrast imaging there is normal enhancement of the pancreatic parenchyma. No suspiciously enhancing structure within the body and tail. Head without suspicious enhancement though sensitivity is slightly reduced due to the adjacent small bowel loop. Common bile duct measures 5.6 millimeters. Slight tapering near the sphincter down to approximately 1.5 mm. Gallbladder does not demonstrate low density structures centrally. Liver spleen and adrenal glands are without gross a regularity. Cysts involving the kidneys - largest is on the right measuring 1.4 cm. No periaortic irregularity. Impression: Dilation of the intra pancreatic duct associated with a large cystic area involving the pancreatic head measuring 3.1 cm with presumed debris/ calcifications along the dependent margin. Findings likely represent sequela chronic pancreatitis. No overtly suspicious enhancing structure identified, though there is decreased sensitivity in the region of the pancreatic head. Common bile duct at upper limits of normal with tapering to the measuring to 1.5 mm at the level of the sphincter. Consider follow up examination in 3 to 6 months to confirm stability the pancreatic duct/pancreatic cystic structures - presumed sequela of chronic pancreatitis. Electronically signed on Sep 18, 2016 4:22:02 PM CDT by: Ben AGUILAR
== END 2016-09-17 06:50 ==
LOC: RAD 06:49
PROVIDERS: ATTEND Family Medicine
DX: K86.3 Pseudocyst of pancreas (principal)
CPT/HCPCS: 74183

== ENCOUNTER 2016-10-29 16:50 | Inpatient (IN) | payer MEDICARE, OTHER ==
[2016-10-29] MEDS ORDERED: 0.9 % SODIUM CHLORIDE 1,000 ML IV ONE ×2 (17:02→17:06)
[2016-10-29] MEDS ORDERED: BUTORPHANOL TARTRATE 2 MG/ML VIAL IV ONE ×2 (17:09→18:15)
[2016-10-29] MEDS ORDERED: PROMETHAZINE HCL 12.5 MG in 0.9 % SODIUM CHLORIDE 50 ML IV ONE (17:14)
[2016-10-29] MEDS ORDERED: PROMETHAZINE HCL 25 MG/ML VIAL ONE (17:15)
[2016-10-29] MEDS ORDERED: 0.9 % SODIUM CHLORIDE 0 ML IV ONE (17:15)
[2016-10-29 17:16] LABS: BASOPHILS % 0.5 (0.0-1.5); EOSINOPHILS % 2.6 % (0.0-6.8); MEAN CORPUSCULAR HEMOGLOBIN 28.3 pg (28.0-34.0); MEAN CORPUSCULAR VOLUME 89.2 fl (80.0-100.0); MONOCYTES % 3.9 % (0.0-11.0); NEUTROPHILS # 7.6 # k/uL (1.4-7.7)
[2016-10-29] MEDS ORDERED: PROMETHAZINE HCL 25 MG in 0.9 % SODIUM CHLORIDE 50 ML IV ONE (17:20)
[2016-10-29 17:30] LABS: eGFR (African) > 60; eGFR (Non-African) > 60
--- NOTE | 2016-10-29 17:31 | ED Physician Documentation ---
Abdominal Pain - HISTORIAN Historian: patient - HPI Stated Complaint: Abdominal Pain Chief Complaint: Abdominal Pain Onset: days ago (8 days) Timing: worse Context: denies: out of country travel, bad food, recent trauma Severity: severe Quality: pain Associated Symptoms: none, nausea, vomiting. denies: fever, chills, coffee ground emesis, bloody emesis, diarrhea, bloody stools, grossly bloody stools, mucous, sweating, loss of appetite, chest pain, testicular pain, back pain, neck pain, other Exacerbated by: nothing, movements Relieved by: nothing Further Comments: yes (56 year old male patient presents with complaints of abdominal pain for the past 8 days. States he has not been drinking for the past 2 weeks. Presents to ER diaphoretic, states he does not have air conditioning. C/O nausea and vomiting.) - ROS CONST: recent illness (pancreatitis ) GI/: none CVS/RESP: none EYES/ENT: none MS/SKIN/LYMPH: none NEURO/PSYCH: none - SOCIAL HX Smoking History: cigarettes Alcohol Use: heavy - FAMILY HX Family History: denies: none - PAST HX Past History: other (COPD, hypertension, chronic pancreatitis) Other History: hypertension Surgeries/Procedures: other (J-tube placement) Home Medications: Ambulatory Orders Medication Instructions Recorded Lipase/Protease/Amylase [Zenpep Dr 1 cap PO DAILY 10/29/16 15,000 Units Capsule] Nebivolol HCl [Bystolic] 10 mg PO DAILY 10/29/16 Allergies/Adverse Reactions: Allergies Allergy/AdvReac Type Severity Reaction Status Date / Time oxycodone AdvReac Vomiting Verified 10/29/16 17:04 - VITAL SIGNS Vital Signs: Vital Signs Temp Pulse Resp BP Pulse Ox 98.1 F 73 24 178/94 99 10/29/16 19:57 10/29/16 19:15 10/29/16 22:00 10/29/16 21:04 10/29/16 22:00 - REVIEWED ASSESSMENTS Nursing Assessment Reviewed: Yes Vitals Reviewed: Yes Progress - Progress Progress: Call Collin Cristobal - patient with history of multiple inpatient admissions for hydration and pain control. PCP - Dr Rodgers. Discussed case with Moshe, will admit to Med surg, continue IV fluids and use Morphine prn. Will not place patient on antibiotics at this time, no fever, no signs of infection. ED Results Lab/Radiology - Lab Results Lab Results: Lab Results 10/29/16 10/29/16 10/29/16 17:09 17:09 17:06 WBC 12.10 K/ul H K/ul (4.00-12.00) RBC 4.27 M/ul M/ul (3.90-5.20) Hgb 12.1 g/dL g/dL (12.0-18.0) Hct 38.1 % % (37.0-53.0) MCV 89.2 fl fl (80.0-100.0) MCH 28.3 pg pg (28.0-34.0) MCHC 31.7 g/dL g/dL (30.0-36.0) RDW 14.7 % H % (11.3-14.3) Plt Count 358 K/mm3 K/mm3 (130-400) Neut % (Auto) 63.2 % % (39.0-79.0) Lymph % (Auto) 28.7 % % (16.0-50.0) [place] % (Auto) 3.9 % % (0.0-11.0) Eos % (Auto) 2.6 % % (0.0-6.8) Baso % (Auto) 0.5 (0.0-1.5) Neut # (Auto) 7.6 # k/uL # k/uL (1.4-7.7) Lymph # (Auto) 3.5 # k/uL # k/uL (0.6-4.0) [place] # (Auto) 0.5 # k/uL # k/uL (0.0-0.9) Eos # (Auto) 0.3 # k/uL # k/uL (0.0-0.6) Baso # (Auto) 0.0 # k/uL # k/uL (0.0-0.5) Reactive Lymphs % 1.1 % % (0.0-5.0) Reactive Lymphs # 0.1 # k/uL # k/uL (0.0-0.8) Sodium 138 mmol/L mmol/L (136-145) Potassium 4.0 mmol/L mmol/L (3.5-5.0) Chloride 101 mmol/L mmol/L (98-110) Carbon Dioxide 24 mmol/L mmol/L (20-32) BUN 14 mg/dL mg/dL (10-26) Creatinine 1.0 mg/dL mg/dL (0.4-1.5) Estimated Creat Clear 80 Est GFR ( Amer) > 60 (60 - ) Est GFR (Non-Af Amer) > 60 (60 - ) Glucose 103 mg/dL H mg/dL (70-99) Calcium 10.5 mg/dL mg/dL (8.5-10.5) Total Bilirubin 0.4 mg/dL mg/dL (0.2-1.2) AST 47 U/L H U/L (0-41) ALT 43 U/L U/L (0-45) Alkaline Phosphatase 129 U/L H U/L (46-116) Total Protein 8.5 g/dL g/dL (6.0-8.5) Albumin 5.3 g/dL g/dL (3.0-5.5) Amylase 388 U/L H U/L (20-104) Urine Color Yellow (YELLOW) Urine Appearance Clear (CLEAR) Urine pH 5.5 (5.0 - 8.0) Ur Specific [place] 1.010 (1.010-1.030) Urine Protein Negative mg/dL mg/dL (NEGATIVE) Urine Ketones Trace mg/dL mg/dL (NEGATIVE) Urine Occult Blood Negative (NEGATIVE) Urine Nitrite Negative (NEGATIVE) Urine Bilirubin Negative (NEGATIVE) Urine Urobilinogen 0.2 Eu Eu (0.2-1.0) Ur Leukocyte Esterase Negative (NEGATIVE) Urine Glucose Negative mg/dL mg/dL (NEGATIVE) - Orders Orders: ED Orders Category Date Time Status Place IV Lock 1T Care 10/29/16 17:06 Active AMYLASE Routine Lab 10/29/16 17:09 Completed CBC/PLATELET/DIFF Stat Lab 10/29/16 17:09 Completed CMP Stat Lab 10/29/16 17:09 Completed LIPASE Routine Lab 10/29/16 17:09 Received UA W/MICRO IF INDICATED Stat Lab 10/29/16 17:06 Completed 0.9 % Sodium Chloride [Normal Saline] 1,000 ml Med 10/29/16 17:02 Discontinued IV .STK-MED 0.9 % Sodium Chloride [Normal Saline] 1,000 ml Med 10/29/16 17:06 Discontinued IV NOW 0.9 % Sodium Chloride [Sodium Chloride] 50 ml Med 10/29/16 17:15 Discontinued IV .STK-MED Butorphanol Tartrate [Stadol] Med 10/29/16 17:09 Discontinued 1 mg IV NOW ONE Butorphanol Tartrate [Stadol] Med 10/29/16 18:15 Discontinued 1 mg IV NOW ONE Promethazine HCl [Phenergan] Med 10/29/16 17:15 Discontinued 25 mg .ROUTE .STK-MED ONE Promethazine HCl [Phenergan] 12.5 mg Med 10/29/16 17:14 Discontinued 0.9 % Sodium Chloride [Sodium Chloride] 50 ml IV NOW Promethazine HCl [Phenergan] 25 mg Med 10/29/16 17:20 Discontinued 0.9 % Sodium Chloride [Sodium Chloride] 50 ml IV NOW Abdominal Pain Physical Exam - Physical Exam General Appearance: moderate distress EENT: eye inspection normal, BONILLA RESPIRATORY: no resp distress, chest non-tender, breath sounds normal CVS: reg rate & rhythm, heart sounds normal, equal pulses, no murmur, no gallop , PMI nml, no JVD, no friction rub, 24 ABDOMEN: soft, no distension, tenderness (epigastric, RUQ) BACK: normal inspection, no CVA tenderness SKIN: normal color, diaphoresis EXTREMITIES: non-tender, normal range of motion, no evidence of injury, no edema , J, [employer]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: oriented X3, CN's nml as tested, motor nml, sensation nml Vital Signs: Vital Signs Temp Pulse Resp BP Pulse Ox 98.1 F 73 24 178/94 99 10/29/16 19:57 10/29/16 19:15 10/29/16 22:00 10/29/16 21:04 10/29/16 22:00 Discharge Clincal Impression: RUQ abdominal pain Acute pancreatitis Qualifiers: Pancreatitis type: unspecified pancreatitis type Acute pancreatitis complication: no infection or necrosis Qualified Code(s): K85.90 - Acute pancreatitis without necrosis or infection, unspecified Nausea & vomiting Qualifiers: Vomiting type: unspecified Vomiting Intractability: non-intractable Qualified Code(s): R11.2 - Nausea with vomiting, unspecified Home Medications: Ambulatory Orders Lipase/Protease/Amylase [Zenpep Dr 15,000 Units Capsule] 1 cap PO DAILY Nebivolol HCl [Bystolic] 10 mg PO DAILY 10/29/16 Condition: Stable Disposition: ADMITTED INPATIENT Decision to Admit: [id number] Decision Time: 18:30
[2016-10-29] MEDS ORDERED: PROMETHAZINE HCL 12.5 MG in 0.9 % SODIUM CHLORIDE 50 ML IV PRN (19:22)
[2016-10-29] MEDS ORDERED: ONDANSETRON HCL/PF 4 MG/ 2ML VIAL IVP PRN (19:22)
[2016-10-29] MEDS ORDERED: SALINE FLUSH 10 ML DISP.SYRIN IVF ONE (19:57)
[2016-10-29] MEDS: MORPHINE SULFATE 4 MG/ML DISP.SYRIN IVP PRN ×2 (20:09→22:58)
[2016-10-29] MEDS: DEXTROSE 5 %-0.45 % NACL 1,000 ML IV SCH (20:10)
[2016-10-29] MEDS ORDERED: PANTOPRAZOLE SODIUM 40 MG TABLET ONE (20:42)
[2016-10-29] MEDS ORDERED: PANTOPRAZOLE SODIUM 40 MG TABLET PO SCH (21:00)
[2016-10-29 21:01] VITALS: BMI 21.2
[2016-10-29 21:27] LABS: APPEARANCE,URINE Clear (CLEAR); COLOR,URINE Yellow (YELLOW); OCCULT BLOOD,URINE Negative (NEGATIVE); PH URINE 5.5 (5.0 - 8.0); UROBILINOGEN URINE 0.2 Eu (0.2-1.0)
[2016-10-30] MEDS ORDERED: LORazepam 2 MG/ML VIAL IVP ONE (02:14)
[2016-10-30] MEDS ORDERED: SALINE FLUSH 10 ML DISP.SYRIN IVF ONE ×2 (02:18→06:26)
[2016-10-30] MEDS: MORPHINE SULFATE 4 MG/ML DISP.SYRIN IVP PRN ×6 (03:12→22:48)
[2016-10-30] MEDS: DEXTROSE 5 %-0.45 % NACL 1,000 ML IV SCH ×2 (05:43→16:44)
[2016-10-30 07:01] LABS: BASOPHILS % 0.6 (0.0-1.5); EOSINOPHILS % 2.4 % (0.0-6.8); MEAN CORPUSCULAR HEMOGLOBIN 27.7 pg (28.0-34.0); MEAN CORPUSCULAR VOLUME 90.6 fl (80.0-100.0); MONOCYTES % 4.6 % (0.0-11.0); NEUTROPHILS # 7.7 # k/uL (1.4-7.7)
[2016-10-30 07:14] LABS: eGFR (African) > 60; eGFR (Non-African) > 60
--- NOTE | 2016-10-30 08:11 | History and Physical Report ---
History of Present Illnes - History of Present Illness Reason for Visit: abdominal pain History of Present Illness: Leonardo is a 56yo male with a history of chronic pancreatitis. He has had worsening abdominal pain and vomiting for the last 8 days. It seems like every afternoon his symptoms get worse and he starts throwing up. Yesterday his pain got out of control and he presented here to the ER where he was found to have Amylase of 388. He denies fever/chills, change in bowel or urinary habits. He reports that he has not been drinking alcohol for 2 weeks. He has been on IV fluids and bowel rest overnight and is feeling better, although he usually feels better in the mornings. Abdominal pain is currently 7. - Past Medical History Cardiac: HTN Pulmonary: COPD, Other (smoker) Hepatobiliary: Other (History of recurrent pancreatitis) Psych: Addictions (alcoholism) - Past Surgical History Past Surgical History: Other (J tube placement) - Past Family History Mother Family History: (52yo), Other (complication of EtOHic) Father Family History: CAD, DM, (67yo), Other (HTN) - Past Social History Smoke: <1 pack per day (/2 ppd) Occupation: disabled Alcohol: Occassional (1 beer daily) Drugs: None Lives: With Family Domestic Violence: Negative - Health Maintenance Health Maintenance: Cholesterol Pneumonia Vaccine: No Resuscitation Status: Resusciation Status Resuscitation Status Full Code Review of Systems - Review of Systems Constitutional: Sweats, Malaise. negative: Fever, Chills Eyes: negative: vision change, conjunctivae inflammation ENT: negative: Ear Pain, Nose Congestion Respiratory: negative: Cough, Shortness of Breath Cardiovascular: negative: Chest Pain, Palpitations, Edema Gastrointestinal: Nausea, Vomiting, Abdominal Pain. negative: Diarrhea, Constipation Genitourinary: negative: Dysuria, Frequency Musculoskeletal: Back Pain. negative: Neck Pain, Leg Pain Skin: negative: Rash, Lesions Neurological: negative: Weakness, Numbness, Confusion - Medications/Allergies Allergies/Adverse Reactions: Allergies Allergy/AdvReac Type Severity Reaction Status Date / Time oxycodone AdvReac Vomiting Verified 10/29/16 17:04 Home Medications: Home Medications Lipase/Protease/Amylase [Zenpep Dr 15,000 Units Capsule] 1 cap PO DAILY Current Inpatient Medications: Current Inpatient Medications Dextrose/Sodium Chloride (D51/2ns) 1,000 mls @ 100 mls/hr IV Q10H LAM Last Admin: 10/30/16 05:43 Dose: 100 mls/hr Promethazine HCl 12.5 mg/ (Sodium Chloride) 50.5 mls @ 600 mls/hr IV Q6 PRN PRN Reason: Nausea / Vomiting Pantoprazole Sodium 40 mg/ (Sodium Chloride) 50 mls @ 100 mls/hr IV DAILY [facility] Lisinopril (Prinivil) 20 mg PO DAILY [facility] Lorazepam (Ativan) 1 mg IVP NOW ONE Stop: 10/30/16 02:15 Last Admin: 10/30/16 02:23 Dose: 1 mg Miscellaneous (Nebivolol Hcl [Bystolic]) 10 mg PO DAILY [facility] Morphine Sulfate (Depodur) 4 mg IVP Q4 PRN PRN Reason: Severe Pain Last Admin: 10/30/16 06:41 Dose: 4 mg Ondansetron HCl (Zofran 4 Mg/2 Ml) 4 mg IVP Q6H PRN PRN Reason: Nausea / Vomiting Last Admin: 10/29/16 20:09 Dose: 4 mg Exam - Exam Vital Signs: Vital Signs (72 hours) 10/29/16 10/29/16 10/29/16 19:07 19:15 19:19 Temperature 98.1 F Pulse Rate [ 76 73 Pulse ox] Respiratory 16 16 Rate Blood Pressure 168/81 [Left Arm] Blood Pressure 202/102 [Right Arm] O2 Sat by Pulse 99 99 99 Oximetry 10/29/16 10/29/16 10/29/16 19:57 21:04 22:00 Temperature 98.1 F Pulse Rate [ Pulse ox] Respiratory 16 24 Rate Blood Pressure [Left Arm] Blood Pressure 220/110 178/94 [Right Arm] O2 Sat by Pulse 99 99 Oximetry 10/30/16 10/30/16 10/30/16 02:00 05:35 06:00 Temperature 98.0 F 98.8 F Pulse Rate [ 79 60 Pulse ox] Respiratory 20 16 Rate Blood Pressure [Left Arm] Blood Pressure 186/104 158/89 [Right Arm] O2 Sat by Pulse 99 98 98 Oximetry General: Alert, Oriented to Person, Oriented to Place, Oriented to Time, Cooperative, No acute distress HEENT: Atraumatic, PERRLA, EOMI Neck: No: Stridor, Rigidity Lungs: Clear to auscultation, Speaks full Sentences. No: Respiratory Distress, Wheezes, Rales Cardiovascular: Regular rate, Normal S1, Normal S2 Peripheral Edema: none Abdomen: No masses (epigastric tenderness, no guarding). No: Distended Integumentary: Normal, [place], Warm, Dry Extremities: No clubbing, No cyanosis, No edema Neurological: Normal speech, Cranial nerves 3-12 NL Psych/Mental Status: Mental status NL, Mood NL - Laboratory Results Laboratory Results: Laboratory Results 10/30/16 10/30/16 06:40 06:40 WBC 12.40 H RBC 3.85 L Hgb 10.7 L Hct 34.9 L MCV 90.6 MCH 27.7 L MCHC 30.6 RDW 14.8 H Plt Count 266 Neut % (Auto) 62.3 Lymph % (Auto) 29.0 [place] % (Auto) 4.6 Eos % (Auto) 2.4 Baso % (Auto) 0.6 Neut # (Auto) 7.7 Lymph # (Auto) 3.6 [place] # (Auto) 0.6 Eos # (Auto) 0.3 Baso # (Auto) 0.1 Reactive Lymphs % 1.2 Reactive Lymphs # 0.2 Sodium 136 Potassium 3.7 Chloride 104 Carbon Dioxide 26 BUN 8 L Creatinine 0.8 Estimated Creat Clear 99 Est GFR ( Amer) > 60 Est GFR (Non-Af Amer) > 60 Glucose 107 H Calcium 9.5 Total Bilirubin 0.3 AST 36 ALT 30 Alkaline Phosphatase 100 Total Protein 6.8 Albumin 4.3 Amylase 388 Lipase pending Assessment/Plan - Assessment/Plan (1) Acute pancreatitis Status: Acute Current Visit: Yes Qualifiers: Pancreatitis type: unspecified pancreatitis type Acute pancreatitis complication: no infection or necrosis Qualified Code(s): K85.90 - Acute pancreatitis without necrosis or infection, unspecified Assessment: Amylase 388, Lipase pending, vomiting and abdominal pain radiating to his back Plan: Pt is NPO with IV fluids and morphine for pain control, vital signs are stable, will continue and try to get vomiting under control (2) Nausea & vomiting Status: Acute Current Visit: Yes Qualifiers: Vomiting type: unspecified Vomiting Intractability: non-intractable Qualified Code(s): R11.2 - Nausea with vomiting, unspecified Assessment: Vomiting secondary to #1, cyclical in the afternoon Plan: Pt is on bowel rest and protonix, will monitor for now VTE Assessment - RISK FACTOR SCORE VTE RISK FACTOR SCORES: AGE 40-60 YEARS, SMOKER - RISK VTE MODERATE RISK: SCORE OF 2 (RISK PROXIMAL DVT 2-4%) PROPHYAXIS NEEDED
[2016-10-30] MEDS ORDERED: PANTOPRAZOLE SODIUM 40 MG in 0.9 % SODIUM CHLORIDE 50 ML IV SCH (09:00)
[2016-10-30] MEDS: NEBIVOLOL HCL 10 MG PO SCH (09:21)
[2016-10-30] MEDS: LISINOPRIL 20 MG TABLET PO SCH (09:22)
[2016-10-30 17:03] LABS: LIPASE >3000 U/L (13-60)
[2016-10-31] MEDS: MORPHINE SULFATE 4 MG/ML DISP.SYRIN IVP PRN ×4 (03:02→15:03)
[2016-10-31] MEDS: DEXTROSE 5 %-0.45 % NACL 1,000 ML IV SCH ×2 (05:08→14:03)
[2016-10-31 06:46] LABS: BASOPHILS % 0.4 (0.0-1.5); EOSINOPHILS % 3.9 % (0.0-6.8); MEAN CORPUSCULAR HEMOGLOBIN 28.5 pg (28.0-34.0); MONOCYTES % 5.7 % (0.0-11.0); NEUTROPHILS # 5.3 # k/uL (1.4-7.7)
[2016-10-31 07:14] LABS: eGFR (African) > 60; eGFR (Non-African) > 60
[2016-10-31] MEDS ORDERED: PANTOPRAZOLE SODIUM 40 MG TABLET PO ONE (08:34)
[2016-10-31] MEDS: NEBIVOLOL HCL 10 MG PO SCH (08:37)
[2016-10-31] MEDS: LISINOPRIL 20 MG TABLET PO SCH (08:37)
[2016-10-31] MEDS ORDERED: PANTOPRAZOLE SODIUM 40 MG TABLET ONE (08:47)
[2016-10-31] MEDS ORDERED: 0.9 % SODIUM CHLORIDE 1,000 ML IV ONE (12:17)
[2016-10-31] MEDS ORDERED: 0.9 % SODIUM CHLORIDE 1,000 ML IV SCH (13:00)
--- NOTE | 2016-10-31 15:00 | Diagnostic Imaging Report ---
[facility]/MED SURG [facility] [address] [facility] [place] [address]. [id number] Report Submission Date: Oct 31, 2016 1:30:15 PM CDT Patient Study Name: JOE GEORGE Date: Oct 31, 2016 12:39:49 PM CDT Modality Type: CT\SR Gender: M Description: CT ABD & PELVIS W/ CON : 62 Institution: [facility] Physician: [facility]/MED SURG Examination: CT Abdomen/pelvis History: History of pancreatic cyst. Abdominal scattered. Comparison exams: CT is dated 21 November 2015, 20 January 2016, 22 May 2016. MRI dated 17 September 2016 Technique: CT Abdomen/pelvis with IV protocol. Findings: Within the head of the pancreas a large cyst cystic area measuring 3.8 x 2.8 cm in cross-section diameter - cyst was present in the head of the pancreas on previous CTs. Dilation of the intra pancreatic duct: also unchanged. No enhancing soft tissue component within the pancreas. Adjacent to the pancreatic head significant thickening and inflammatory changes involving the duodenum C sweep upper and antrum of the stomach. Remainder of the small bowel does demonstrates some prominent loops within the left midabdomen measuring 2.4 cm diameter. Stool within the large bowel limit sensitivity. Fluid within the lower pelvic region. No peripheral enhancement. Liver without central enhancing lesion. Prominence of the intrahepatic biliary system. Spleen, adrenal glands are without gross irregularity. Cortical cysts involving the kidneys. No peripheral enhancement. Gallbladder without stone. Abdominal aorta demonstrates peripheral atherosclerotic disease. No evidence for aneurysm Osseous structures demonstrate degenerative changes. Lung bases with minimal parenchymal atelectasis. Impression: Significant inflammatory changes involving the duodenum C Sweep/ Stomach antrum: highly suggestive for significant duodenitis. Possibly for associated acute pancreatitis superimposed on chronic pancreatitis a consideration. Continued large pancreatic head cyst and dilation of the intrapancreatic duct: present on previous examinations. Intrahepatic biliary dilation correlate with recent MRCP findings. Few loops of prominent small bowel within the left midabdomen - early ileus is a consideration. Fluid within the lower pelvis: No peripheral enhancement to suggest abscess and likely reactive and etiology. GI physician consultation recommended if not already obtained Electronically signed on Oct 31, 2016 1:30:15 PM CDT by: eBn Alcaraz Addendum: Inflammatory changes do not demonstrate a formed abscess at this time. Discussed findings with Dr. Rodgers at 1340 hours on 31 October 2016 Addendum electronically signed by Ben Alcaraz on October 31, 2016 1:44:00 PM CDT MTD[place]
--- NOTE | 2016-10-31 16:54 | Discharge Summary ---
Discharge Summary - Discharge Sumary Condition at Discharge: Stable Home Medications: Ambulatory Orders Medication Instructions Recorded Lipase/Protease/Amylase [Zenpep 1 cap PO DAILY 10/29/16 15,000 Units Capsule] Omeprazole [Prilosec] 20 mg PO BID #60 capsule. 10/31/16 Consultations this Visit: None Procedures this Visit: Other (abdominal CT scan) Allergies/Adverse Reactions: Allergies Allergy/AdvReac Type Severity Reaction Status Date / Time oxycodone AdvReac Vomiting Verified 10/29/16 17:04 Patient Problems: Current Active Problems Problem Status Onset Acute pancreatitis Acute Essential hypertension Acute Nausea & vomiting Acute RUQ abdominal pain Acute Discharge Summary: Patient was placed NPO and maintained with IV fluids. Patient was given Zofran as needed for nausea and morphine as needed for pain. After 24 hours patient's diet was advance which he tolerated. Pain improved and he desired to go home. Because of his persistent pain a CAT scan was done. This showed a stable pancreatic cyst. There was once again noted to have some duodenitis which appeared to be worse then the last MRI scan done about two months ago. After discussing the finding with the patient he was advised that we would need to get a GI consult for further evaluation and possible endoscopy. Patient was advised to continue with his present medications and will increase omeprazole to BID. Advised to watch for any blood in stool, if any nausea or vomiting. Advised to stop all caffeine, chocolate, alcohol, tobacco and spicy foods. - Final Diagnosis (1) Chronic pancreatitis Problems: Continue with home meds (2) Duodenitis Problems: Increase omeprazole to BID
[2016-10-31 18:13] VITALS: BP 144/92
[2016-10-31 23:21] LABS: LIPASE 106 U/L (13-60)
[2016-11-01] MEDS ORDERED: PANTOPRAZOLE SODIUM 40 MG TABLET PO SCH (07:00)
== END 2016-10-31 17:45 | disposition home or self-care (01) | DRG 440 ==
LOC: ED 16:50 → SOUTH 18:45
PROVIDERS: ADMIT Family Medicine; ATTEND Family Medicine
DX: K85.90 Acute pancreatitis without necrosis or infection, unspecified (principal); R11.2 Nausea with vomiting, unspecified; K29.80 Duodenitis without bleeding
CPT/HCPCS: 36415; 74177; 80053; 81002; 82150; 83690; 85025; 96360; 96374; 99222; 99238; 99283; 99284; A9698; J0595; J2060; J2270; J2405; J2550; J7030; Q9966; S1016; S5010

== ENCOUNTER 2016-11-01 14:27 | Emergency (ER) | payer MEDICARE, OTHER ==
[2016-11-01] MEDS ORDERED: PANTOPRAZOLE SODIUM 40 MG in 0.9 % SODIUM CHLORIDE 50 ML IV ONE (14:42)
[2016-11-01] MEDS ORDERED: MAG HYDROX/AL HYDROX/SIMETH 30 ML, Lidocaine 2%Visc 15ml 20 MG, PHENobarb/HYOSCY/ATROPI... PO ONE ×3 (14:42)
[2016-11-01] MEDS ORDERED: 0.9 % SODIUM CHLORIDE 1,000 ML IV ONE ×2 (14:42→15:35)
[2016-11-01] MEDS ORDERED: MAGNESIUM HYDROXIDE/AL HYDROX 30 ML UDC PO ONE (14:43)
[2016-11-01] MEDS ORDERED: KETOROLAC TROMETHAMINE 30 MG/1ML VIAL IVP ONE (14:43)
[2016-11-01] MEDS ORDERED: Lidocaine 2%Visc 15ml 20 MG/ML UDC ONE (14:43)
[2016-11-01] MEDS ORDERED: ONDANSETRON HCL/PF 4 MG/ 2ML VIAL IVP ONE (14:43)
[2016-11-01] MEDS ORDERED: KETOROLAC TROMETHAMINE 30 MG/1ML VIAL ONE (14:43)
--- NOTE | 2016-11-01 14:45 | ED Physician Documentation ---
Abdominal Pain - HISTORIAN Historian: patient - HPI Stated Complaint: Abdominal Pain Chief Complaint: Abdominal Pain Additonal Information: Abdominal pain, nausea and vomiting began within the hour. DC'ed from hospital yesterday afternoon after admit for pancreatitis. Says he has not eaten today and that he has not been drinking. Onset: hours Context: denies: out of country travel Quality: burning, sharp Associated Symptoms: nausea, vomiting - ROS CONST: no problems - SOCIAL HX Smoking History: non-smoker Alcohol Use: heavy (last time 2 weeks ago??) - FAMILY HX Family History: no significant history - PAST HX Past History: other (chronic pancreatitis) Surgeries/Procedures: none (j tube placement) Home Medications: Ambulatory Orders Medication Instructions Recorded Lipase/Protease/Amylase [Zenpep 1 cap PO DAILY 10/29/16 15,000 Units Capsule] Omeprazole [Prilosec] 20 mg PO BID #60 capsule. 10/31/16 Allergies/Adverse Reactions: Allergies Allergy/AdvReac Type Severity Reaction Status Date / Time oxycodone AdvReac Vomiting Verified 11/01/16 14:32 - VITAL SIGNS Vital Signs: Vital Signs Temp Pulse Resp BP Pulse Ox 98 H 18 223/106 99 11/01/16 14:30 11/01/16 14:30 11/01/16 14:30 11/01/16 14:30 - REVIEWED ASSESSMENTS Nursing Assessment Reviewed: Yes Vitals Reviewed: Yes Progress - Progress Progress: Amylase 196 1623, spoke with Dr. Rodgers who asks pt be sent to his office. Dr. Rodgers will write him a script for pain meds. ED Results Lab/Radiology - Lab Results Lab Results: Lab Results 11/01/16 11/01/16 14:58 14:58 WBC 8.40 K/ul K/ul (4.00-12.00) RBC 3.97 M/ul M/ul (3.90-5.20) Hgb 10.8 g/dL L g/dL (12.0-18.0) Hct 36.1 % L % (37.0-53.0) MCV 91.1 fl fl (80.0-100.0) MCH 27.2 pg L pg (28.0-34.0) MCHC 29.9 g/dL L g/dL (30.0-36.0) RDW 14.8 % H % (11.3-14.3) Plt Count 314 K/mm3 K/mm3 (130-400) Neut % (Auto) 54.0 % % (39.0-79.0) Lymph % (Auto) 33.9 % % (16.0-50.0) [place] % (Auto) 7.0 % % (0.0-11.0) Eos % (Auto) 2.4 % % (0.0-6.8) Baso % (Auto) 0.5 (0.0-1.5) Neut # (Auto) 4.5 # k/uL # k/uL (1.4-7.7) Lymph # (Auto) 2.8 # k/uL # k/uL (0.6-4.0) [place] # (Auto) 0.6 # k/uL # k/uL (0.0-0.9) Eos # (Auto) 0.2 # k/uL # k/uL (0.0-0.6) Baso # (Auto) 0.0 # k/uL # k/uL (0.0-0.5) Reactive Lymphs % 2.3 % % (0.0-5.0) Reactive Lymphs # 0.2 # k/uL # k/uL (0.0-0.8) Sodium 136 mmol/L mmol/L (136-145) Potassium 3.9 mmol/L mmol/L (3.5-5.0) Chloride 103 mmol/L mmol/L (98-110) Carbon Dioxide 28 mmol/L mmol/L (20-32) BUN 7 mg/dL L mg/dL (10-26) Creatinine 0.8 mg/dL mg/dL (0.4-1.5) Estimated Creat Clear 93 Est GFR ( Amer) > 60 (60 - ) Est GFR (Non-Af Amer) > 60 (60 - ) Glucose 120 mg/dL H mg/dL (70-99) Calcium 9.3 mg/dL mg/dL (8.5-10.5) Total Bilirubin 0.5 mg/dL mg/dL (0.2-1.2) AST 26 U/L U/L (0-41) ALT 21 U/L U/L (0-45) Alkaline Phosphatase 88 U/L U/L (46-116) Total Protein 6.8 g/dL g/dL (6.0-8.5) Albumin 4.3 g/dL g/dL (3.0-5.5) Amylase 196 U/L H U/L (20-104) Ethyl Alcohol < 10.0 MG/DL MG/DL (<10.0) - Orders Orders: ED Orders Category Date Time Status Place IV Lock 1T Care 11/01/16 14:42 Active AMYLASE Routine Lab 11/01/16 14:58 Completed CBC/PLATELET/DIFF Routine Lab 11/01/16 14:58 Completed CMP Routine Lab 11/01/16 14:58 Completed DRUG SCREEN URINE MEDICAL ONLY Routine Lab 11/01/16 Ordered ETHANOL MEDICAL USE ONLY Routine Lab 11/01/16 14:58 Completed URINALYSIS Routine Lab 11/01/16 Ordered 0.9 % Sodium Chloride [Normal Saline] 1,000 ml Med 11/01/16 14:42 Discontinued IV Q1H 0.9 % Sodium Chloride [Normal Saline] 1,000 ml Med 11/01/16 15:35 Active IV Q1H Ketorolac Tromethamine [Toradol] Med 11/01/16 14:43 Discontinued 30 mg .ROUTE .STK-MED ONE Ketorolac Tromethamine [Toradol] Med 11/01/16 14:43 Discontinued 30 mg IVP NOW ONE Lidocaine 2%Visc 15ml [Xylocaine] Med 11/01/16 14:43 Discontinued 300 mg .ROUTE .STK-MED ONE Mag Hydrox/Al Hydrox/Simeth [Mylanta] 30 ml Med 11/01/16 14:42 Discontinued Lidocaine 2%Visc 15ml [Xylocaine] 20 mg PHENobarb/HYOSCY/ATROPINE/SCOP [] 10 ml PO NOW Magnesium Hydroxide/Al Hydrox [Maalox] Med 11/01/16 14:43 Discontinued 30 ml PO .STK-MED ONE Ondansetron HCl/Pf [Zofran 4 mg/2 ml] Med 11/01/16 14:43 Discontinued 4 mg IVP NOW ONE Pantoprazole Sodium [Protonix] 40 mg Med 11/01/16 14:42 Discontinued 0.9 % Sodium Chloride [Sodium Chloride] 50 ml IV DAILY Abdominal Pain Physical Exam - Physical Exam General Appearance: alert, moderate distress (squatting on floor) EENT: eye inspection normal, ENT inspection normal (many absent teeth), pharynx normal, no signs of dehydration NECK: normal inspection, supple RESPIRATORY: no resp distress, breath sounds normal CVS: reg rate & rhythm, heart sounds normal, no murmur ABDOMEN: normal bowel sounds (tightens abdominal muscles, doesn not allow palpation) RECTAL: deferred BACK: normal inspection, no CVA tenderness SKIN: normal color, diaphoresis EXTREMITIES: no evidence of injury NEURO: CN's nml as tested, motor nml, sensation nml Vital Signs: Vital Signs Temp Pulse Resp BP Pulse Ox 98 H 18 223/106 99 11/01/16 14:30 11/01/16 14:30 11/01/16 14:30 11/01/16 14:30 Discharge Clincal Impression: Abdominal pain Qualifiers: Abdominal location: generalized Qualified Code(s): R10.84 - Generalized abdominal pain Referrals: Scottie Rodgers MD [Primary Care Provider] - 2 Days Additional Instructions: Go straight to Dr. Rodgers's office. Home Medications: Ambulatory Orders Lipase/Protease/Amylase [Fidel Vergara 15,000 Units Capsule] 1 cap PO DAILY Omeprazole [Prilosec] 20 mg PO BID #60 capsule. 10/31/16 Condition: Fair Disposition: 01 HOME, SELF-CARE Decision to Admit: NO Decision Time: 16:22
[2016-11-01 15:08] LABS: BASOPHILS % 0.5 (0.0-1.5); EOSINOPHILS % 2.4 % (0.0-6.8); MEAN CORPUSCULAR HEMOGLOBIN 27.2 pg (28.0-34.0); MEAN CORPUSCULAR VOLUME 91.1 fl (80.0-100.0); NEUTROPHILS # 4.5 # k/uL (1.4-7.7)
[2016-11-01 15:46] LABS: eGFR (African) > 60; eGFR (Non-African) > 60
[2016-11-01 16:34] VITALS: BP 160/68
[2016-11-02 05:46] LABS: AMPHETAMINE NEGATIVE ng/mL (<1000); APPEARANCE,URINE CLEAR (CLEAR); BARBITURATES NEGATIVE ng/mL (<300); CANNABINOIDS NON NEGATIVE ng/mL (< 50); COCAINE NEGATIVE ng/mL (<150); COLOR,URINE AMBER (YELLOW); METHAMPHETAMINE NEGATIVE ng/mL (<1000); METHYLENEDIOXYMETHAMPHETAMINE NEGATIVE ng/mL (<500); MORPHINE NON NEGATIVE ng/mL (<300); OCCULT BLOOD,URINE NEGATIVE (NEGATIVE); PH URINE 5.5 (5.0 - 8.0)
== END 2016-11-01 16:32 | disposition home or self-care (01) ==
LOC: ED 14:27
DX: R10.84 Generalized abdominal pain (principal)
CPT/HCPCS: 80053; 82150; 85025; A9270; G0480; J1885; J2405; J7030; 80320; 80377; 81002; 96361; 96374; 96375; 99283; G0481; S1016

== ENCOUNTER 2016-11-23 10:44 | Outpatient (CLI) | payer MEDICARE, OTHER | END 2016-11-23 10:45 | LOC: OUT 10:44 | PROVIDERS: ATTEND Colon & Rectal Surgery | DX: K86.1 Other chronic pancreatitis (principal) | CPT/HCPCS: G0463 ==

== ENCOUNTER 2017-05-02 09:28 | Emergency (ER) | payer MEDICARE, OTHER ==
[2017-05-02] MEDS ORDERED: IPRATROPIUM/ALBUTEROL SULFATE 3 ML AMPUL.NEB NEB ONE (09:38)
[2017-05-02] MEDS ORDERED: BUDESONIDE 0.5MG/2ML AMPUL.NEB NEB ONE (09:38)
[2017-05-02] MEDS ORDERED: ALBUTEROL SULFATE 2.5 MG/3 ML AMPUL.NEB NEB ONE ×2 (09:40→09:47)
[2017-05-02] MEDS ORDERED: SODIUM CHLORIDE 3 ML VIAL.NEB IH ONE (09:40)
[2017-05-02] MEDS ORDERED: 0.9 % SODIUM CHLORIDE 1,000 ML IV ONE ×3 (09:46→11:21)
[2017-05-02] MEDS ORDERED: INSULIN REGULAR, HUMAN 100 UNIT/ML 3ML VIAL ONE (09:47)
[2017-05-02] MEDS ORDERED: INSULIN REGULAR, HUMAN 100 UNIT/ML 3ML VIAL IV ONE (09:47)
[2017-05-02 09:58] LABS: BASOPHILS % 0.6 (0.0-1.5); EOSINOPHILS % 2.5 % (0.0-6.8); MEAN CORPUSCULAR HEMOGLOBIN 15.4 pg (28.0-34.0); MEAN CORPUSCULAR VOLUME 71.9 fl (80.0-100.0); MONOCYTES % 4.7 % (0.0-11.0)
[2017-05-02 10:12] LABS: eGFR (African) > 60; eGFR (Non-African) > 60
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
--- NOTE | 2017-05-02 11:17 | Diagnostic Imaging Report ---
DAO PACHECO (TISSUE REWINDER) - ER [facility] [address] [facility].[address] 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 Findings: Single view of the chest demonstrates a prominent cardiac and mediastinal silhouette. Right greater left parenchymal haziness. Mild blunting of the right costophrenic margin. Osseous structures are appropriate for age. Impression: Right greater than left, parenchymal infiltrates with likely right base effusion. Electronically signed on May 02, 2017 10:10:21 AM COOLER WORKER by: Ben AGUILAR
[2017-05-02 12:27] VITALS: BP 126/90
[2017-05-08 07:34] LABS: ABG BASE EXCESS -19.7 (-2 - +2); ABG PH 7.07 (7.35-7.45)
== END 2017-05-02 11:48 ==
LOC: ED 09:28
DX: A41.9 Sepsis, unspecified organism (principal); J18.9 Pneumonia, unspecified organism; K86.1 Other chronic pancreatitis; E08.10 Diabetes mellitus due to underlying condition with ketoacidosis without coma
CPT/HCPCS: 36430; 36600; 71010; 80053; 82803; 83605; 83690; 84484; 85025; 86885; 86900; 86901; 86920; 87040; 87400; 93005; 94640; 96361; 96365; 99283; 99284; G0480; J7030; 80320; P9040; S1016

== ENCOUNTER 2017-05-14 11:46 | Outpatient (CLI) | payer MEDICARE ==
[2017-05-14 12:02] LABS: BASOPHILS % 0.6 (0.0-1.5); EOSINOPHILS % 2.1 % (0.0-6.8); MEAN CORPUSCULAR HEMOGLOBIN 23.9 pg (28.0-34.0); MEAN CORPUSCULAR VOLUME 88.5 fl (80.0-100.0); NEUTROPHILS # 7.6 # k/uL (1.4-7.7)
[2017-05-14 12:16] LABS: ANISOCYTOSIS 1+ (NEGATIVE); HYPOCHROMASIA 1+ (NEGATIVE)
== END 2017-05-14 11:47 ==
LOC: LAB 11:46
PROVIDERS: ATTEND Family Medicine
DX: D50.0 Iron deficiency anemia secondary to blood loss (chronic) (principal)
CPT/HCPCS: 36415; 85025

== ENCOUNTER 2017-05-24 15:17 | Inpatient (IN) | payer MEDICARE ==
--- NOTE | 2017-05-24 15:34 | ED Physician Documentation ---
General Adult - HISTORIAN Historian: patient - HPI Stated Complaint: GI bleed Chief Complaint: General Adult Onset: days ago (7) Timing: still present Severity: moderate Further Comments: yes (Pt is a 57 yo male who was life-flighted from this ER to [facility] about 2 weeks ago for GI bleed. Pt was in the hospital for a week, then home for a week without significant problems, then, one week ago, he began to have rectal bleeding again, which has been going on daily since then. Pt says that he is getting weaker. Pt says his bleeding is from multiple ulcers and that he also has chronic pancreatitis. He wears an abd wrap, like a corset, which he says helps with his pancreatitis pain. Pt's vital signs are stable on presentation and he is alert and oriented. Pt has previous hx alcoholism.) - ROS CONST: weakness EYES/ENT: none GI/: abdominal pain (chronic) MS/SKIN/LYMPH: none - PAST HX Past History: other (HTN, COPD, recurrent/chronic pancreatitis, alcoholism) Surgeries/Procedures: other (J-tube placement/removal) - SOCIAL HX Smoking History: less than 1 pack/day Alcohol Use: occasionally - FAMILY HX Family History: Yes (Mother ( 52) complications from alcoholism; Father: ( [id number])CAD, DM, HTN.) - VITAL SIGNS Vital Signs: Vital Signs Temp Pulse Resp BP Pulse Ox 126/90 05/02/17 11:48 - REVIEWED ASSESSMENTS Nursing Assessment Reviewed: Yes Vitals Reviewed: Yes <Leonardo Adan - Last Filed: 05/24/17 16:41> - VITAL SIGNS Vital Signs: Vital Signs Temp Pulse Resp BP Pulse Ox 98.8 F 97 H 16 157/92 96 05/25/17 01:59 05/25/17 01:59 05/25/17 01:59 05/25/17 05:14 05/25/17 01:59 <Braxton Ramon - Last Filed: 05/25/17 05:37> - PAST HX Allergies/Adverse Reactions: Allergies Allergy/AdvReac Type Severity Reaction Status Date / Time oxycodone AdvReac Vomiting Verified 05/24/17 16:12 Home Medications: Ambulatory Orders Medication Instructions Recorded Buspirone HCl [Buspar] 10 mg PO DAILY 05/02/17 Lipase/Protease/Amylase [Zenpep Dr 1 each PO AC15 05/02/17 15,000 Units Capsule] Progress - Progress Progress: CXR: Single view of the chest demonstrates a normal cardiac and mediastinal silhouette. Parenchymal haziness with blunting of the left lung base. 1.5 cm nodule right lower lung. Osseous structures are appropriate for age. Impression: Left base effusion/infiltrate. 1.5 cm right base nodule. Given smoking history, recommend obtaining CT chest to further evaluate. NS 500 cc IVF Famotidine 20 mg IV Zofran 4 mg IV Dilaudid 1 mg IV - EKG/XRAY/CT EKG: NSR (HR=62; Normal [place] interval; normal axis; non-specific T-wave abnormality.) <Leonardo Adan - Last Filed: 05/24/17 16:41> - Results/Orders Results/Orders: hgb 10.5, hct 37.7, wbc 10.2, pt 11.7, ptt 23, inr 1.11, trop 0.03, na 143, k 3.8, cl 107, co2 19, bun 13, creat 0.7, glu 99, lipase 1428, ua unremarkable <Braxton Ramon S - Last Filed: 05/25/17 05:37> Critical Care Note - Critical Care Note Total Time (mins): 0 <Braxton Ramon S - Last Filed: 05/25/17 05:37> ED Results Lab/Radiology - Lab Results Lab Results: Lab Results 05/24/17 05/24/17 05/24/17 15:50 15:50 15:50 WBC RBC Hgb Hct MCV MCH MCHC RDW Plt Count Seg Neutrophils % Lymphocytes % Monocytes % Eosinophils % Basophils % Plt Morphology Comment Hypochromasia RBC Morph Comment PT 11.7 Seconds H Seconds (9.4-11.6) INR 1.11 (0.9-1.2) APTT 23.0 Seconds L Seconds (24.5-32.8) Sodium Potassium Chloride Carbon Dioxide BUN Creatinine Est GFR ( Amer) Est GFR (Non-Af Amer) Glucose Calcium Total Bilirubin AST ALT Alkaline Phosphatase Troponin I < 0.03 ng/mL L ng/mL (0.03-0.06) Total Protein Albumin Lipase 1428 U/L H U/L (23-300) 05/24/17 05/24/17 15:50 15:50 WBC 10.20 K/ul K/ul (4.00-12.00) RBC 4.44 M/ul M/ul (3.90-5.20) Hgb 10.5 g/dL L g/dL (12.0-18.0) Hct 37.7 % % (37.0-53.0) MCV 84.9 fl fl (80.0-100.0) MCH 23.6 pg L pg (28.0-34.0) MCHC 27.8 g/dL L g/dL (30.0-36.0) RDW 22.3 % H % (11.3-14.3) Plt Count 576 K/mm3 H K/mm3 (130-400) Seg Neutrophils % 70 % % (39-79) Lymphocytes % 20 % % (16-50) Monocytes % 5 % % (0-11) Eosinophils % 2 % % (0-7) Basophils % 1 % % (0-2) Plt Morphology Comment Normal (NORMAL) Hypochromasia 1+ H (NEGATIVE) RBC Morph Comment Abnormal H (NORMAL) PT INR APTT Sodium 143 mmol/L mmol/L (136-145) Potassium 3.8 mmol/L mmol/L (3.5-5.1) Chloride 107 mmol/L mmol/L (98-107) Carbon Dioxide 19 mmol/L L mmol/L (22-30) BUN 13 mg/dL mg/dL (9-20) Creatinine 0.70 mg/dL mg/dL (0.66-1.25) Est GFR ( Amer) > 60 (60 - ) Est GFR (Non-Af Amer) > 60 (60 - ) Glucose 99 mg/dL mg/dL (74-106) Calcium 9.1 mg/dL mg/dL (8.4-10.2) Total Bilirubin 0.7 mg/dL mg/dL (0.2-1.3) AST 60 U/L H U/L (15-46) ALT 44 U/L U/L (13-69) Alkaline Phosphatase 113 U/L U/L (38-126) Troponin I Total Protein 7.7 g/dL g/dL (6.3-8.2) Albumin 4.0 g/dL g/dL (3.5-5.0) Lipase - Radiology Radiology Impressions: cvxr neg - Orders Orders: ED Orders Category Date Time Status Activity as ordered D Care 05/24/17 21:00 Active Continuous Pulse Oximetry Q30M Care 05/24/17 15:34 Completed Document Bowel Movement Q8H Care 05/24/17 21:[address] Carbajal NOW Care 05/24/17 21:00 Ordered Inpatient (Anticipate > 2 Midnight Stay) NOW Care 05/24/17 21:00 Ordered No VTE Prophylaxis Needed .Once Care 05/24/17 21:[address] IV Lock 1T Care 05/24/17 15:34 Completed Vital Signs Q4 Care 05/24/17 21:00 Active Nothing Per Oral Diet 05/24/17 Breakfast Ordered CHEST 1 VIEW [RAD] Stat Exams 05/24/17 Completed CBC/PLATELET/DIFF Routine Lab 05/24/17 15:50 Completed CBC/PLATELET/DIFF Routine Lab 05/25/17 06:00 Ordered CMP Routine Lab 05/24/17 15:50 Completed LIPASE Routine Lab 05/25/17 06:00 Ordered LIPASE Stat Lab 05/24/17 15:50 Completed PT-INR Routine Lab 05/24/17 15:50 Completed PTT Routine Lab 05/24/17 15:50 Completed TROPONIN I (cTnI) Stat Lab 05/24/17 15:50 Completed 0.9 % Sodium Chloride [Normal Saline] 1,000 ml Med 05/24/17 21:00 Ordered IV Q10H 0.9 % Sodium Chloride [Normal Saline] 500 ml Med 05/24/17 15:36 Discontinued IV NOW Famotidine/Pf [Pepcid] Med 05/24/17 16:19 Discontinued 20 mg IVP NOW ONE HYDROmorphone HCL/PF [Dilaudid] Med 05/24/17 16:21 Discontinued 1 mg IVP NOW ONE HYDROmorphone HCL/PF [Dilaudid] Med 05/24/17 17:45 Discontinued 1 mg IVP NOW ONE HYDROmorphone HCL/PF [Dilaudid] Med 05/24/17 19:58 Discontinued 1 mg IVP NOW ONE HYDROmorphone HCL/PF [Dilaudid] Med 05/24/17 21:00 Discontinued 1 mg IVP Q4H PRN Ondansetron HCl/Pf [Zofran 4 mg/2 ml] Med 05/24/17 16:21 Discontinued 4 mg IVP NOW ONE Ondansetron HCl/Pf [Zofran 4 mg/2 ml] Med 05/24/17 21:00 Ordered 4 mg IVP Q6H PRN Pantoprazole Sodium [Protonix] 40 mg Med 05/25/17 09:00 Ordered 0.9 % Sodium Chloride [Sodium Chloride] 50 ml IV DAILY Resuscitation Status Routine Oth 05/24/17 21:00 Ordered EKG WITH COMPARISON Stat Ther 05/24/17 15:34 Stop Req Transfer Routine Transfer 05/24/17 Completed <Braxton Ramon S - Last Filed: 05/25/17 05:37> General Adult Physical Exam - PHYSICAL EXAM GENERAL APPEARANCE: moderate distress EENT: pharynx normal NECK: normal inspection, supple RESPIRATORY: no resp distress, chest non-tender, breath sounds normal CVS: reg rate & rhythm, heart sounds normal ABDOMEN: soft, tenderness (mid abdominal, moderate), decreased BS RECTAL: normal rectal tone, heme positive stool, other (black stool) BACK: normal inspection SKIN: warm/dry, pallor EXTREMITIES: non-tender, normal range of motion, no evidence of injury NEURO: oriented X3, motor nml, sensation nml <Leonardo Adan - Last Filed: 05/24/17 16:41> Discharge <Leonardo Adan - Last Filed: 05/24/17 16:41> Decision to Admit: [id number] Decision Time: 07:00 <Braxton Ramon S - Last Filed: 05/25/17 05:37> Clincal Impression: Acute on chronic pancreatitis GI bleed Qualifiers: GI bleed type/associated pathology: unspecified gastrointestinal hemorrhage type Qualified Code(s): K92.2 - Gastrointestinal hemorrhage, unspecified Condition: Stable Disposition: ADMITTED INPATIENT
[2017-05-24] MEDS ORDERED: 0.9 % SODIUM CHLORIDE 500 ML IV ONE (15:36)
[2017-05-24 15:58] LABS: MEAN CORPUSCULAR HEMOGLOBIN 23.6 pg (28.0-34.0); MEAN CORPUSCULAR VOLUME 84.9 fl (80.0-100.0)
[2017-05-24 16:02] LABS: eGFR (African) > 60; eGFR (Non-African) > 60
[2017-05-24] MEDS ORDERED: FAMOTIDINE/PF 20 MG/2 ML VIAL IVP ONE (16:19)
[2017-05-24] MEDS ORDERED: HYDROmorphone HCL/PF 1 MG/ML DISP.SYRIN IVP ONE ×3 (16:21→19:58)
[2017-05-24] MEDS ORDERED: ONDANSETRON HCL/PF 4 MG/ 2ML VIAL IVP ONE (16:21)
[2017-05-24 16:30] LABS: BASOPHILS % 1 % (0-2); EOSINOPHILS % 2 % (0-7); MONOCYTES % 5 % (0-11); SEGMENTED NEUTROPHILS % 70 % (39-79)
[2017-05-24 16:31] LABS: HYPOCHROMASIA 1+ (NEGATIVE)
--- NOTE | 2017-05-24 19:02 | Diagnostic Imaging Report ---
JOE CRUZ [facility] [id number] [facility] [address] [place] [address]. [id number] Report Submission Date: May 24, 2017 4:31:48 PM PERITONEAL DIALYSIS REGISTERED NURSE Patient Study Name: JOE GEORGE Date: May 24, 2017 4:11:12 PM PERITONEAL DIALYSIS REGISTERED NURSE Modality Type: CR Gender: M Description: CHEST : 62 Institution: [facility] Physician: JOE CRUZ Examination: Portable chest History: PCXR, SOA, COUGH FOR ABOUT A WEEK, SMOKER (Hx) / SHORTNESS OF BREATH ( DICOM Hx) / SHORTNESS OF BREATH (Pt comments) Comparison exam: 02 May 2017 Findings: Single view of the chest demonstrates a normal cardiac and mediastinal silhouette. Parenchymal haziness with blunting of the left lung base. 1.5 cm nodule right lower lung. Osseous structures are appropriate for age. Impression: Left base effusion/infiltrate. 1.5 cm right base nodule. Given smoking history, recommend obtaining CT chest to further evaluate. Electronically signed on May 24, 2017 4:31:48 PM PERITONEAL DIALYSIS REGISTERED NURSE by: Ben AGUILAR
[2017-05-24] MEDS ORDERED: HYDROmorphone HCL/PF 1 MG/ML DISP.SYRIN IVP PRN (21:00)
[2017-05-24] MEDS: 0.9 % SODIUM CHLORIDE 1,000 ML IV SCH (21:14)
[2017-05-24 21:36] VITALS: BMI 47.7
--- NOTE | 2017-05-24 21:52 | History and Physical Report ---
History of Present Illnes - History of Present Illness Reason for Visit: GI bleed/pancreatitis History of Present Illness: This is a 57 year old male who is admitted with acute pancreatitis and upper GI bleed. He was seen in the ER on May 02 , and had a hemogobin of 3.9. He was transferred to [facility], and had an EGD and colonoscopy which showed gastritis (per ER) and no colonic source of bleeding was identified. he was transfused there, but is not sure of the number of units that he received. ER attempted to transfer him to [facility] today, however the transfer was declined and [facility] did not have beds. He says that two days ago , he began to have very dark stools and then yesterday, he began to have epigastric pain. He says that he drinks "not every day" and then only a few drinks. He says that he had a couple of shots earlier today, however at the time of this writing, he continues to smell of alcohol. He denies any history of withdrawal or seizure when stopping alcohol. - Past Medical History Cardiac: HTN Pulmonary: COPD, Other (smoker) Hepatobiliary: Other (History of recurrent pancreatitis) Psych: Addictions (alcoholism) - Past Surgical History Past Surgical History: Other (J tube placement) - Past Social History Smoke: <1 pack per day (1/2 ppd) Occupation: disabled Alcohol: Occassional (1 beer daily) Drugs: None Lives: With Family Domestic Violence: Negative - Health Maintenance Health Maintenance: Cholesterol Pneumonia Vaccine: Yes Resuscitation Status: Resusciation Status Resuscitation Status Full Code - Unable to Obtain History Unable to Obtain: No Review of Systems - Review of Systems Constitutional: negative: Fever, Chills Eyes: negative: pain ENT: negative: Ear Pain, Ear Discharge Respiratory: negative: Cough, Shortness of Breath Cardiovascular: negative: Chest Pain Gastrointestinal: Nausea, Abdominal Pain (epigastric), Melena. negative: Vomiting Genitourinary: negative: Dysuria, Frequency Musculoskeletal: negative: Neck Pain Skin: negative: Rash Neurological: negative: Weakness, Change in Speech, Confusion - Medications/Allergies Allergies/Adverse Reactions: Allergies Allergy/AdvReac Type Severity Reaction Status Date / Time oxycodone AdvReac Vomiting Verified 05/24/17 16:12 Current Inpatient Medications: Current Inpatient Medications Sodium Chloride (Normal Saline) 1,000 mls @ 100 mls/hr IV Q10H [facility] Last Admin: 05/24/17 21:14 Dose: 100 mls/hr Pantoprazole Sodium 40 mg/ (Sodium Chloride) 50 mls @ 100 mls/hr IV DAILY [facility] Ondansetron HCl (Zofran 4 Mg/2 Ml) 4 mg IVP Q6H PRN PRN Reason: Nausea / Vomiting Exam - Exam Vital Signs: Vital Signs (72 hours) 05/24/17 05/24/17 20:25 20:46 Temperature 97.4 F L Pulse Rate [ 82 78 Pulse ox] Respiratory 20 16 Rate Blood Pressure 132/72 [Left Arm] Blood Pressure 142/107 [Right Arm] O2 Sat by Pulse 98 Oximetry General: Alert, Oriented to Person, Oriented to Place, Oriented to Time, Discheveled, Thin HEENT: Atraumatic, PERRLA, Poor Dentition Neck: No: Stridor Lungs: Clear to auscultation, Normal air movement, Decreased Air Movement Cardiovascular: Regular rate Murmur: No: Systolic Murmur Abdomen: Decreased Bowel Sounds. No: No tenderness (tender in the left epigastrium) Genitourinary: No: Right Inguinal Hernia, Left Inguinal Hernia Male Genitourinary: No: Other Female Genitourinary: No: Other Integumentary: Normal, Miller, Warm Extremities: No clubbing, No cyanosis, No edema Neurological: Normal speech Psych/Mental Status: Mental status NL Assessment/Plan - Assessment/Plan (1) Alcoholism Status: Acute Current Visit: Yes Assessment: With ongoing alcohol consumption, but without history of withdawal or seizure (2) GI bleed Status: Acute Current Visit: Yes Qualifiers: GI bleed type/associated pathology: unspecified gastrointestinal hemorrhage type Qualified Code(s): K92.2 - Gastrointestinal hemorrhage, unspecified Assessment: Hemlglobin is 10.5 tonight. Will recheck in the AM. He is on IV protonix currently (3) Acute pancreatitis Status: Acute Current Visit: No Qualifiers: Pancreatitis type: unspecified pancreatitis type Acute pancreatitis complication: no infection or necrosis Qualified Code(s): K85.90 - Acute pancreatitis without necrosis or infection, unspecified Assessment: NPO/IV dilaudid for pain, recommended alcohol cessation. VTE Assessment - RISK FACTOR SCORE VTE RISK FACTOR SCORES: AGE 40-60 YEARS - RISK VTE LOW RISK: SCORE OF 1 OR LESS (RISK PROXIMAL DVT 0.4%) NO PROPHYLAXIS NEEDED (Anticoulation is contraindicated due to GI bleed)
[2017-05-24] MEDS: HYDROmorphone HCL/PF 1 MG/ML DISP.SYRIN IVP PRN ×2 (21:55→23:59)
[2017-05-25] MEDS: ONDANSETRON HCL/PF 4 MG/ 2ML VIAL IVP PRN ×4 (00:03→21:17)
[2017-05-25] MEDS: HYDROmorphone HCL/PF 1 MG/ML DISP.SYRIN IVP PRN ×10 (02:01→23:25)
[2017-05-25] MEDS ORDERED: LABETALOL HCL 100MG/20ML VIAL IVP STA ×4 (02:14→05:14)
[2017-05-25] MEDS ORDERED: METOPROLOL TARTRATE 50 MG TABLET PO ONE (04:10)
[2017-05-25] MEDS: LISINOPRIL 20 MG TABLET PO SCH ×2 (04:17→07:28)
[2017-05-25] MEDS: 0.9 % SODIUM CHLORIDE 1,000 ML IV SCH ×2 (05:58→16:43)
[2017-05-25 06:48] LABS: APPEARANCE,URINE CLEAR (CLEAR); COLOR,URINE YELLOW (YELLOW); OCCULT BLOOD,URINE NEGATIVE (NEGATIVE); UROBILINOGEN URINE 0.2 Eu (0.2-1.0)
[2017-05-25 08:07] LABS: BASOPHILS % 0.5 (0.0-1.5); EOSINOPHILS % 0.5 % (0.0-6.8); MEAN CORPUSCULAR HEMOGLOBIN 23.3 pg (28.0-34.0); MEAN CORPUSCULAR VOLUME 83.4 fl (80.0-100.0); MONOCYTES % 6.2 % (0.0-11.0); NEUTROPHILS # 5.6 # k/uL (1.4-7.7)
--- NOTE | 2017-05-25 08:45 | Inpatient Progress Note ---
Subjective - Required Recertification Statement I anticipate X number of days because-include discharge plan: 2 - Review of Systems Events since last encounter: Leonardo is feeling slightly better today. His hemoglobin has only dropped 0.5g to 10.0. He still has some epigastric pain. His lipase has come down to 594 from 1400. He is having no further bloody stools. General: Denies: Chills HEENT: Denies: Head Aches Pulmonary: Denies: Dyspnea Cardiovascular: Denies: Chest Pain Gastrointestinal: Nausea, Vomiting, Abdominal Pain (left epigastric) Genitourinary: Denies: Dysuria Musculoskeletal: Denies: Neck Pain Neurological: Denies: Weakness Objective - Exam Vitals and I&O: Vital Signs Temp 97.4 F L 05/25/17 05:54 Pulse 67 05/25/17 05:54 Resp 16 05/25/17 05:54 BP 134/88 05/25/17 06:42 Pulse Ox 96 05/25/17 05:54 Intake & Output 05/24/17 05/24/17 05/25/17 11:59 23:59 11:59 Intake Total 100 807 Output Total 400 Balance 100 407 Weight 151 kg Intake: IV 100 807 Right Antecubital 100 807 Output: Urine 400 Other: Voiding Method Toilet Urinal General: Alert, Oriented to Person, Discheveled, Thin HEENT: Atraumatic, Poor Dentition Neck: Supple, No JVD Lungs: Clear to auscultation Cardiovascular: Regular rate Abdomen: Normal bowel sounds, Other (Tender in the left epigastrium) Extremities: No clubbing, No cyanosis, No edema Skin: Pale Neurological: Normal speech Psych/Mental Status: Mental status NL - Results Results: Laboratory Results WBC 7.50 K/ul (4.00-12.00) 05/25/17 07:40 RBC 4.30 M/ul (3.90-5.20) 05/25/17 07:40 Hgb 10.0 g/dL (12.0-18.0) L 05/25/17 07:40 Hct 35.9 % (37.0-53.0) L 05/25/17 07:40 MCV 83.4 fl (80.0-100.0) 05/25/17 07:40 MCH 23.3 pg (28.0-34.0) L 05/25/17 07:40 MCHC 28.0 g/dL (30.0-36.0) L 05/25/17 07:40 RDW 22.2 % (11.3-14.3) H 05/25/17 07:40 Plt Count 492 K/mm3 (130-400) H 05/25/17 07:40 Neut % (Auto) 74.3 % (39.0-79.0) 05/25/17 07:40 Lymph % (Auto) 17.6 % (16.0-50.0) 05/25/17 07:40 [place] % (Auto) 6.2 % (0.0-11.0) 05/25/17 07:40 Eos % (Auto) 0.5 % (0.0-6.8) 05/25/17 07:40 Baso % (Auto) 0.5 (0.0-1.5) 05/25/17 07:40 Neut # (Auto) 5.6 # k/uL (1.4-7.7) 05/25/17 07:40 Lymph # (Auto) 1.3 # k/uL (0.6-4.0) 05/25/17 07:40 [place] # (Auto) 0.5 # k/uL (0.0-0.9) 05/25/17 07:40 Eos # (Auto) 0.0 # k/uL (0.0-0.6) 05/25/17 07:40 Baso # (Auto) 0.0 # k/uL (0.0-0.5) 05/25/17 07:40 Seg Neutrophils % 70 % (39-79) 05/24/17 15:50 Lymphocytes % 20 % (16-50) 05/24/17 15:50 Reactive Lymphs % 0.9 % (0.0-5.0) 05/25/17 07:40 Monocytes % 5 % (0-11) 05/24/17 15:50 Eosinophils % 2 % (0-7) 05/24/17 15:50 Basophils % 1 % (0-2) 05/24/17 15:50 Reactive Lymphs # 0.1 # k/uL (0.0-0.8) 05/25/17 07:40 Plt Morphology Comment Normal (NORMAL) 05/24/17 15:50 Hypochromasia 1+ (NEGATIVE) H 05/24/17 15:50 RBC Morph Comment Abnormal (NORMAL) H 05/24/17 15:50 PT 11.7 Seconds (9.4-11.6) H 05/24/17 15:50 INR 1.11 (0.9-1.2) 05/24/17 15:50 APTT 23.0 Seconds (24.5-32.8) L 05/24/17 15:50 Sodium 143 mmol/L (136-145) 05/24/17 15:50 Potassium 3.8 mmol/L (3.5-5.1) 05/24/17 15:50 Chloride 107 mmol/L (98-107) 05/24/17 15:50 Carbon Dioxide 19 mmol/L (22-30) L 05/24/17 15:50 BUN 13 mg/dL (9-20) 05/24/17 15:50 Creatinine 0.70 mg/dL (0.66-1.25) 05/24/17 15:50 Est GFR ( Amer) > 60 (60-) 05/24/17 15:50 Est GFR (Non-Af Amer) > 60 (60-) 05/24/17 15:50 Glucose 99 mg/dL (74-106) 05/24/17 15:50 Calcium 9.1 mg/dL (8.4-10.2) 05/24/17 15:50 Total Bilirubin 0.7 mg/dL (0.2-1.3) 05/24/17 15:50 AST 60 U/L (15-46) H 05/24/17 15:50 ALT 44 U/L (13-69) 05/24/17 15:50 Alkaline Phosphatase 113 U/L (38-126) 05/24/17 15:50 Troponin I < 0.03 ng/mL (0.03-0.06) L 05/24/17 15:50 Total Protein 7.7 g/dL (6.3-8.2) 05/24/17 15:50 Albumin 4.0 g/dL (3.5-5.0) 05/24/17 15:50 Lipase 594 U/L (23-300) H 05/25/17 07:40 Urine Color Yellow (YELLOW) 05/24/17 17:15 Urine Appearance Clear (CLEAR) 05/24/17 17:15 Urine pH 6.0 (5.0 - 8.0) 05/24/17 17:15 Ur Specific [place] <=1.005 (1.010-1.030) L 05/24/17 17:15 Urine Protein Negative mg/dL (NEGATIVE) 05/24/17 17:15 Urine Ketones Negative mg/dL (NEGATIVE) 05/24/17 17:15 Urine Occult Blood Negative (NEGATIVE) 05/24/17 17:15 Urine Nitrite Negative (NEGATIVE) 05/24/17 17:15 Urine Bilirubin Negative (NEGATIVE) 05/24/17 17:15 Urine Urobilinogen 0.2 Eu (0.2-1.0) 05/24/17 17:15 Ur Leukocyte Esterase Negative (NEGATIVE) 05/24/17 17:15 Urine Glucose Negative mg/dL (NEGATIVE) 05/24/17 17:15 Assessment/Plan - Assessment/Plan (1) Alcoholism Status: Acute Current Visit: Yes Assessment: Encouraged alcohol cessation (2) GI bleed Status: Acute Current Visit: Yes Qualifiers: GI bleed type/associated pathology: unspecified gastrointestinal hemorrhage type Qualified Code(s): K92.2 - Gastrointestinal hemorrhage, unspecified Assessment: Without current bleeding (3) Acute pancreatitis Status: Acute Current Visit: No Qualifiers: Pancreatitis type: unspecified pancreatitis type Acute pancreatitis complication: no infection or necrosis Qualified Code(s): K85.90 - Acute pancreatitis without necrosis or infection, unspecified Assessment: With lipase lowering significantly Plan: Will advance diet as tolerated
[2017-05-25] MEDS ORDERED: 0.9 % SODIUM CHLORIDE 50 ML IV ONE (08:47)
[2017-05-25] MEDS: PANTOPRAZOLE SODIUM 40 MG in 0.9 % SODIUM CHLORIDE 50 ML IV SCH (09:00)
[2017-05-25 09:21] LABS: ANISOCYTOSIS 1+ (NEGATIVE); HYPOCHROMASIA 2+ (NEGATIVE); STOMATOCYTES 1+ (NEGATIVE); TARGET CELLS 1+ (NEGATIVE)
[2017-05-26] MEDS: HYDROmorphone HCL/PF 1 MG/ML DISP.SYRIN IVP PRN ×9 (01:44→21:33)
[2017-05-26] MEDS: 0.9 % SODIUM CHLORIDE 1,000 ML IV SCH ×3 (02:13→22:11)
[2017-05-26] MEDS: ONDANSETRON HCL/PF 4 MG/ 2ML VIAL IVP PRN ×2 (03:52→21:34)
[2017-05-26 06:48] LABS: MEAN CORPUSCULAR HEMOGLOBIN 23.7 pg (28.0-34.0); MEAN CORPUSCULAR VOLUME 85.9 fl (80.0-100.0)
[2017-05-26 07:21] LABS: eGFR (African) > 60; eGFR (Non-African) > 60
[2017-05-26] MEDS: PANTOPRAZOLE SODIUM 40 MG in 0.9 % SODIUM CHLORIDE 50 ML IV SCH (08:11)
[2017-05-26] MEDS: LISINOPRIL 20 MG TABLET PO SCH (08:11)
--- NOTE | 2017-05-26 13:29 | Inpatient Progress Note ---
Subjective - Required Recertification Statement I anticipate X number of days because-include discharge plan: 1 - Review of Systems Events since last encounter: Leonardo is starting to eat a little now. He tried a banana, but it was too much for him. He as started on jell-o, and has gotten some of that down (two bowls) . He denies any vomiting. His pain is better with pain medications. He remains on IV protonix, and hydromorphone for pain. His labs are improved this morning. He has not dropped his hemoglobin any further. His lipase is still trending down. General: Denies: Chills HEENT: Denies: Head Aches, Visual Changes Pulmonary: Denies: Dyspnea Cardiovascular: Denies: Chest Pain Gastrointestinal: Nausea, Abdominal Pain (epigastric). Denies: Vomiting, Diarrhea, Constipation Genitourinary: Denies: Dysuria Musculoskeletal: Denies: Neck Pain, Shoulder Pain Neurological: Weakness. Denies: Change in Speech, Confusion Objective - Exam Vitals and I&O: Vital Signs Temp 97.6 F 05/26/17 10:00 Pulse 91 H 05/26/17 10:00 Resp 18 05/26/17 10:00 BP 152/73 05/26/17 10:00 Pulse Ox 96 05/26/17 10:00 Intake & Output 05/25/17 05/26/17 05/26/17 23:59 11:59 23:59 Intake Total 2055 993 Output Total 400 250 Balance 1655 743 Intake: IV 1660 893 Right Antecubital 1660 893 Oral 395 100 Output: Urine 400 250 Other: Voiding Method Urinal Urinal # Voids 1 General: Alert, Oriented to Person, Oriented to Place, Oriented to Time, Cooperative, Moderate distress, Discheveled HEENT: Atraumatic, PERRLA, EOMI Neck: Supple, No JVD Lungs: Clear to auscultation Cardiovascular: Regular rate Abdomen: Other (Tenderness in the epigastrium is noted), Decreased Bowel Sounds Extremities: No clubbing, No cyanosis, No edema Skin: Normal Neurological: Normal gait - Results Results: Laboratory Results WBC 8.80 K/ul (4.00-12.00) 05/26/17 06:35 RBC 4.22 M/ul (3.90-5.20) 05/26/17 06:35 Hgb 10.0 g/dL (12.0-18.0) L 05/26/17 06:35 Hct 36.3 % (37.0-53.0) L 05/26/17 06:35 MCV 85.9 fl (80.0-100.0) 05/26/17 06:35 MCH 23.7 pg (28.0-34.0) L 05/26/17 06:35 MCHC 27.6 g/dL (30.0-36.0) L 05/26/17 06:35 RDW 21.8 % (11.3-14.3) H 05/26/17 06:35 Plt Count 364 K/mm3 (130-400) 05/26/17 06:35 Neut % (Auto) 74.3 % (39.0-79.0) 05/25/17 07:40 Lymph % (Auto) 17.6 % (16.0-50.0) 05/25/17 07:40 [place] % (Auto) 6.2 % (0.0-11.0) 05/25/17 07:40 Eos % (Auto) 0.5 % (0.0-6.8) 05/25/17 07:40 Baso % (Auto) 0.5 (0.0-1.5) 05/25/17 07:40 Neut # (Auto) 5.6 # k/uL (1.4-7.7) 05/25/17 07:40 Lymph # (Auto) 1.3 # k/uL (0.6-4.0) 05/25/17 07:40 [place] # (Auto) 0.5 # k/uL (0.0-0.9) 05/25/17 07:40 Eos # (Auto) 0.0 # k/uL (0.0-0.6) 05/25/17 07:40 Baso # (Auto) 0.0 # k/uL (0.0-0.5) 05/25/17 07:40 Seg Neutrophils % 70 % (39-79) 05/24/17 15:50 Lymphocytes % 20 % (16-50) 05/24/17 15:50 Reactive Lymphs % 0.9 % (0.0-5.0) 05/25/17 07:40 Monocytes % 5 % (0-11) 05/24/17 15:50 Eosinophils % 2 % (0-7) 05/24/17 15:50 Basophils % 1 % (0-2) 05/24/17 15:50 Reactive Lymphs # 0.1 # k/uL (0.0-0.8) 05/25/17 07:40 Plt Morphology Comment Normal (NORMAL) 05/25/17 07:40 Hypochromasia 2+ (NEGATIVE) H 05/25/17 07:40 Anisocytosis 1+ (NEGATIVE) H 05/25/17 07:40 Target Cells 1+ (NEGATIVE) H 05/25/17 07:40 Stomatocytes 1+ (NEGATIVE) H 05/25/17 07:40 RBC Morph Comment Abnormal (NORMAL) H 05/25/17 07:40 PT 11.7 Seconds (9.4-11.6) H 05/24/17 15:50 INR 1.11 (0.9-1.2) 05/24/17 15:50 APTT 23.0 Seconds (24.5-32.8) L 05/24/17 15:50 Sodium 136 mmol/L (136-145) 05/26/17 06:35 Potassium 4.0 mmol/L (3.5-5.1) 05/26/17 06:35 Chloride 98 mmol/L (98-107) 05/26/17 06:35 Carbon Dioxide 27 mmol/L (22-30) 05/26/17 06:35 BUN 8 mg/dL (9-20) L 05/26/17 06:35 Creatinine 0.60 mg/dL (0.66-1.25) L 05/26/17 06:35 Estimated Creat Clear 293 05/26/17 06:35 Est GFR ( Amer) > 60 (60-) 05/26/17 06:35 Est GFR (Non-Af Amer) > 60 (60-) 05/26/17 06:35 Glucose 112 mg/dL (74-106) H 05/26/17 06:35 Calcium 8.8 mg/dL (8.4-10.2) 05/26/17 06:35 Total Bilirubin 1.0 mg/dL (0.2-1.3) 05/26/17 06:35 AST 32 U/L (15-46) 05/26/17 06:35 ALT 36 U/L (13-69) 05/26/17 06:35 Alkaline Phosphatase 140 U/L (38-126) H 05/26/17 06:35 Troponin I < 0.03 ng/mL (0.03-0.06) L 05/24/17 15:50 Total Protein 6.5 g/dL (6.3-8.2) 05/26/17 06:35 Albumin 3.4 g/dL (3.5-5.0) L 05/26/17 06:35 Lipase 345 U/L (23-300) H 05/26/17 06:35 Urine Color Yellow (YELLOW) 05/24/17 17:15 Urine Appearance Clear (CLEAR) 05/24/17 17:15 Urine pH 6.0 (5.0 - 8.0) 05/24/17 17:15 Ur Specific [place] <=1.005 (1.010-1.030) L 05/24/17 17:15 Urine Protein Negative mg/dL (NEGATIVE) 05/24/17 17:15 Urine Ketones Negative mg/dL (NEGATIVE) 05/24/17 17:15 Urine Occult Blood Negative (NEGATIVE) 05/24/17 17:15 Urine Nitrite Negative (NEGATIVE) 05/24/17 17:15 Urine Bilirubin Negative (NEGATIVE) 05/24/17 17:15 Urine Urobilinogen 0.2 Eu (0.2-1.0) 05/24/17 17:15 Ur Leukocyte Esterase Negative (NEGATIVE) 05/24/17 17:15 Urine Glucose Negative mg/dL (NEGATIVE) 05/24/17 17:15 Assessment/Plan - Assessment/Plan (1) Alcoholism Status: Acute Current Visit: Yes Assessment: Encouraged alcohol cessation (2) GI bleed Status: Acute Current Visit: Yes Qualifiers: GI bleed type/associated pathology: unspecified gastrointestinal hemorrhage type Qualified Code(s): K92.2 - Gastrointestinal hemorrhage, unspecified Assessment: No evidence of further blood loss (3) Acute pancreatitis Status: Acute Current Visit: No Qualifiers: Pancreatitis type: unspecified pancreatitis type Acute pancreatitis complication: no infection or necrosis Qualified Code(s): K85.90 - Acute pancreatitis without necrosis or infection, unspecified Assessment: Advance diet as tolerated Hydromorphone for pain Follow lipase
[2017-05-26] MEDS ORDERED: HYDROmorphone HCL/PF 1 MG/ML DISP.SYRIN ONE ×3 (15:35→21:31)
[2017-05-27] MEDS ORDERED: HYDROmorphone HCL/PF 1 MG/ML DISP.SYRIN ONE ×6 (00:10→12:55)
[2017-05-27] MEDS: HYDROmorphone HCL/PF 1 MG/ML DISP.SYRIN IVP PRN ×5 (00:12→12:05)
[2017-05-27] MEDS: ONDANSETRON HCL/PF 4 MG/ 2ML VIAL IVP PRN (06:10)
[2017-05-27] MEDS: 0.9 % SODIUM CHLORIDE 1,000 ML IV SCH (07:48)
[2017-05-27] MEDS: PANTOPRAZOLE SODIUM 40 MG in 0.9 % SODIUM CHLORIDE 50 ML IV SCH (09:12)
[2017-05-27] MEDS: LISINOPRIL 20 MG TABLET PO SCH (09:13)
--- NOTE | 2017-05-27 12:54 | Inpatient Progress Note ---
Subjective - Required Recertification Statement I anticipate X number of days because-include discharge plan: 3 - Review of Systems Events since last encounter: Leonardo is still having quite a bit of pain, and has not been able to eat very much. He feels diaphoretic, however he is not having high temperatures. He has eaten very little. Despite having his labs look better, clinically, he is not experiencing the recovery that I was expect. General: Denies: Chills, Night Sweats HEENT: Denies: Head Aches Pulmonary: Denies: Dyspnea Cardiovascular: Denies: Chest Pain Gastrointestinal: Nausea, Abdominal Pain (right hemiabdominal (left sided pain is improved)). Denies: Vomiting Genitourinary: Denies: Dysuria Musculoskeletal: Denies: Neck Pain Neurological: Weakness. Denies: Change in Speech, Confusion Objective - Exam Vitals and I&O: Vital Signs Temp 98.2 F 05/27/17 10:00 Pulse 107 H 05/27/17 10:00 Resp 16 05/27/17 10:00 BP 153/100 05/27/17 10:00 Pulse Ox 96 05/27/17 10:00 Intake & Output 05/26/17 05/27/17 05/27/17 23:59 11:59 23:59 Intake Total 3277 1175 Output Total 1050 400 Balance 2227 775 Intake: IV 2627 1125 Right Antecubital 750 1125 Right Forearm 1877 Oral 650 50 Output: Urine 1050 400 Other: Voiding Method Urinal Urinal # Voids 1 General: Alert, Oriented to Person, Oriented to Place, Discheveled, Thin HEENT: Atraumatic Neck: Supple, No JVD Lungs: Prolonged Expiration, Decreased Air Movement Cardiovascular: Regular rate Abdomen: Normal bowel sounds, Other (tender in the right hemiabdomen, some guarding noted) Extremities: No clubbing, No cyanosis Skin: Normal Neurological: Normal speech Psych/Mental Status: Mental status NL - Results Results: Laboratory Results WBC 8.80 K/ul (4.00-12.00) 05/26/17 06:35 RBC 4.22 M/ul (3.90-5.20) 05/26/17 06:35 Hgb 10.0 g/dL (12.0-18.0) L 05/26/17 06:35 Hct 36.3 % (37.0-53.0) L 05/26/17 06:35 MCV 85.9 fl (80.0-100.0) 05/26/17 06:35 MCH 23.7 pg (28.0-34.0) L 05/26/17 06:35 MCHC 27.6 g/dL (30.0-36.0) L 05/26/17 06:35 RDW 21.8 % (11.3-14.3) H 05/26/17 06:35 Plt Count 364 K/mm3 (130-400) 05/26/17 06:35 Neut % (Auto) 74.3 % (39.0-79.0) 05/25/17 07:40 Lymph % (Auto) 17.6 % (16.0-50.0) 05/25/17 07:40 [place] % (Auto) 6.2 % (0.0-11.0) 05/25/17 07:40 Eos % (Auto) 0.5 % (0.0-6.8) 05/25/17 07:40 Baso % (Auto) 0.5 (0.0-1.5) 05/25/17 07:40 Neut # (Auto) 5.6 # k/uL (1.4-7.7) 05/25/17 07:40 Lymph # (Auto) 1.3 # k/uL (0.6-4.0) 05/25/17 07:40 [place] # (Auto) 0.5 # k/uL (0.0-0.9) 05/25/17 07:40 Eos # (Auto) 0.0 # k/uL (0.0-0.6) 05/25/17 07:40 Baso # (Auto) 0.0 # k/uL (0.0-0.5) 05/25/17 07:40 Seg Neutrophils % 70 % (39-79) 05/24/17 15:50 Lymphocytes % 20 % (16-50) 05/24/17 15:50 Reactive Lymphs % 0.9 % (0.0-5.0) 05/25/17 07:40 Monocytes % 5 % (0-11) 05/24/17 15:50 Eosinophils % 2 % (0-7) 05/24/17 15:50 Basophils % 1 % (0-2) 05/24/17 15:50 Reactive Lymphs # 0.1 # k/uL (0.0-0.8) 05/25/17 07:40 Plt Morphology Comment Normal (NORMAL) 05/25/17 07:40 Hypochromasia 2+ (NEGATIVE) H 05/25/17 07:40 Anisocytosis 1+ (NEGATIVE) H 05/25/17 07:40 Target Cells 1+ (NEGATIVE) H 05/25/17 07:40 Stomatocytes 1+ (NEGATIVE) H 05/25/17 07:40 RBC Morph Comment Abnormal (NORMAL) H 05/25/17 07:40 PT 11.7 Seconds (9.4-11.6) H 05/24/17 15:50 INR 1.11 (0.9-1.2) 05/24/17 15:50 APTT 23.0 Seconds (24.5-32.8) L 05/24/17 15:50 Sodium 136 mmol/L (136-145) 05/26/17 06:35 Potassium 4.0 mmol/L (3.5-5.1) 05/26/17 06:35 Chloride 98 mmol/L (98-107) 05/26/17 06:35 Carbon Dioxide 27 mmol/L (22-30) 05/26/17 06:35 BUN 8 mg/dL (9-20) L 05/26/17 06:35 Creatinine 0.60 mg/dL (0.66-1.25) L 05/26/17 06:35 Estimated Creat Clear 293 05/26/17 06:35 Est GFR ( Amer) > 60 (60-) 05/26/17 06:35 Est GFR (Non-Af Amer) > 60 (60-) 05/26/17 06:35 Glucose 112 mg/dL (74-106) H 05/26/17 06:35 Calcium 8.8 mg/dL (8.4-10.2) 05/26/17 06:35 Total Bilirubin 1.0 mg/dL (0.2-1.3) 05/26/17 06:35 AST 32 U/L (15-46) 05/26/17 06:35 ALT 36 U/L (13-69) 05/26/17 06:35 Alkaline Phosphatase 140 U/L (38-126) H 05/26/17 06:35 Troponin I < 0.03 ng/mL (0.03-0.06) L 05/24/17 15:50 Total Protein 6.5 g/dL (6.3-8.2) 05/26/17 06:35 Albumin 3.4 g/dL (3.5-5.0) L 05/26/17 06:35 Lipase 345 U/L (23-300) H 05/26/17 06:35 Urine Color Yellow (YELLOW) 05/24/17 17:15 Urine Appearance Clear (CLEAR) 05/24/17 17:15 Urine pH 6.0 (5.0 - 8.0) 05/24/17 17:15 Ur Specific [place] <=1.005 (1.010-1.030) L 05/24/17 17:15 Urine Protein Negative mg/dL (NEGATIVE) 05/24/17 17:15 Urine Ketones Negative mg/dL (NEGATIVE) 05/24/17 17:15 Urine Occult Blood Negative (NEGATIVE) 05/24/17 17:15 Urine Nitrite Negative (NEGATIVE) 05/24/17 17:15 Urine Bilirubin Negative (NEGATIVE) 05/24/17 17:15 Urine Urobilinogen 0.2 Eu (0.2-1.0) 05/24/17 17:15 Ur Leukocyte Esterase Negative (NEGATIVE) 05/24/17 17:15 Urine Glucose Negative mg/dL (NEGATIVE) 05/24/17 17:15 Assessment/Plan - Assessment/Plan (1) Alcoholism Status: Acute Current Visit: Yes Assessment: Stressed the need for compete abstention from alcohol (2) GI bleed Status: Acute Current Visit: Yes Qualifiers: GI bleed type/associated pathology: unspecified gastrointestinal hemorrhage type Qualified Code(s): K92.2 - Gastrointestinal hemorrhage, unspecified Assessment: Without recurrence (3) Acute pancreatitis Status: Acute Current Visit: No Qualifiers: Pancreatitis type: unspecified pancreatitis type Acute pancreatitis complication: no infection or necrosis Qualified Code(s): K85.90 - Acute pancreatitis without necrosis or infection, unspecified Assessment: Showing less improvement today than on prevoius days. Plan: CT abdomen and pelvis with contrast today Continue hydromorphone for pain
[2017-05-27] MEDS ORDERED: POLYETHYLENE GLYCOL 3350 17 GM POWD.PACK ONE (12:56)
[2017-05-27] MEDS ORDERED: PANTOPRAZOLE SODIUM INJ. 40 MG VIAL ONE (12:56)
[2017-05-27] MEDS ORDERED: 0.9 % SODIUM CHLORIDE 0 ML IV ONE (12:56)
[2017-05-27] MEDS ORDERED: POLYETHYLENE GLYCOL 3350 17 GM POWD.PACK PO SCH (13:00)
[2017-05-27] MEDS ORDERED: HYDROmorphone HCL/PF 2 MG/ML DISP.SYRIN IVP ONE (14:18)
[2017-05-27] MEDS ORDERED: HYDROmorphone HCL/PF 2 MG/ML DISP.SYRIN ONE ×2 (14:19→16:16)
[2017-05-27 14:41] LABS: MEAN CORPUSCULAR HEMOGLOBIN 23.3 pg (28.0-34.0); MEAN CORPUSCULAR VOLUME 81.4 fl (80.0-100.0)
[2017-05-27 14:49] LABS: eGFR (African) > 60; eGFR (Non-African) > 60
[2017-05-27 15:11] LABS: SEGMENTED NEUTROPHILS % 81 % (39-79)
[2017-05-27 15:12] LABS: ANISOCYTOSIS 1+ (NEGATIVE); HYPOCHROMASIA 2+ (NEGATIVE); MONOCYTES % 8 % (0-11)
[2017-05-27] MEDS ORDERED: 0.9 % SODIUM CHLORIDE 1,000 ML IV ONE (15:13)
[2017-05-27] MEDS ORDERED: DILTIAZEM HCL 25 MG/ 5ML VIAL IVP ONE (15:20)
[2017-05-27] MEDS ORDERED: DILTIAZEM HCL 125 MG/25ML VIAL ONE (15:25)
[2017-05-27] MEDS ORDERED: DILTIAZEM HCL 25 MG/ 5ML VIAL ONE (15:25)
[2017-05-27] MEDS ORDERED: DILTIAZEM HCL 125 MG in 0.9 % SODIUM CHLORIDE 100 ML IV STA (15:25)
[2017-05-27 15:47] VITALS: BP 130/80
[2017-05-27] MEDS ORDERED: HYDROmorphone HCL/PF 1 MG/ML DISP.SYRIN IVP ONE (16:15)
[2017-05-27] MEDS ORDERED: PANTOPRAZOLE SODIUM 40 MG in 0.9 % SODIUM CHLORIDE 50 ML IV SCH (21:00)
--- NOTE | 2017-05-28 06:55 | Diagnostic Imaging Report ---
TONIE MCCORMICK [facility] [id number] [facility]ly [facility] [address] [place] [id number] Report Submission Date: May 27, 2017 3:34:46 PM CLERICAL ORDER FILLER Patient Study Name: JOE GEORGE Date: May 27, 2017 2:50:07 PM CLERICAL ORDER FILLER Modality Type: CT\SR Gender: M Description: CT ABD & PELVIS W/ CON : 62 Institution: [facility] Physician: TONIE MCCORMICK CT abdomen and pelvis with intravenous contrast History: Pancreatitis, abdominal pain Technique: Images through the abdomen and pelvis were obtained following intravenous contrast administration. Findings: There is a small left pleural effusion. There is atelectasis in both lung bases. The liver, gallbladder, spleen, kidneys and adrenal glands are normal. There is a 1 cm left adrenal nodule, likely incidental adenoma. Intrahepatic and common biliary duct dilatation is present. Common biliary duct diameter is 12 mm. There are multiple calcifications in the pancreas, consistent with chronic pancreatitis. There is severe peripancreatic inflammatory change. Findings are consistent with acute pancreatitis. Normally enhancing pancreatic tissue is not seen and necrotizing pancreatitis is suspected. There is no abscess or pseudocyst formation. There is no evidence of portal venous thrombosis splenic venous thrombosis. There is a 25 mm enhancing fluid collection in the expected location of the pancreatic head. This is of unclear etiology and was not present on 31 October 2016; a pancreatic pseudocyst was present at this location on the prior study.. There are multiple mildly dilated small bowel loops, consistent with ileus. There is a trace amount of free pelvic fluid. There is no free peritoneal air. The aorta enhances normally. Impression: Findings consistent with necrotizing pancreatitis. Intrahepatic and common biliary duct dilatation. Hyperattenuating homogeneous fluid collection in the expected location of the pancreatic head, of unclear etiology. Electronically signed on May 27, 2017 3:34:46 PM CLERICAL ORDER FILLER by: Meek AGUILAR
--- NOTE | 2017-05-28 09:37 | Discharge Summary ---
DATE OF ADMISSION: May 24, 2017 DATE OF DISCHARGE: May 27, 2017 DIAGNOSES ON THIS HOSPITALIZATION: 1. Acute pancreatitis. 2. Gastrointestinal (GI) bleed. 3. Anemia. 4. Chronic alcoholism. 5. Chronic pancreatitis. SUMMARIZATION OF ADMISSION HISTORY AND PHYSICAL: This is a 57-year-old male well known to me who presented to the emergency department with increasing abdominal pain over the last several days. He was also noted to have some melanotic stools. He was noted to have a hemoglobin of 10.5. He was admitted for observation to see if further bleeding would occur. Attempts were made to transfer him to [facility], [facility], and [facility] where he had been hospitalized previously without any success and he was kept at our institution for observation and treatment. HOSPITAL COURSE: He was admitted. Hemoglobin actually was fairly stable, it dropped only to 10.0 and stayed at 10.0 the day after that. His white count was unremarkable. However, on May 27, he began to have some increased abdominal pain. His hemoglobin dropped from 10.0 to 8.4 and his white count went to 14,500. His lipase, however, did continue to decline. A CT of his abdomen was consistent with necrotizing pancreatitis. He had some free fluid in his abdomen and as a result, he was transferred to [facility] for further care. DISCHARGE CONDITION: He was discharged and transferred by ambulance to [facility] under the care of Dr. Luong on May 27 in guarded condition. LAUREN
== END 2017-05-27 16:40 | disposition short-term general hospital (02) | DRG 439 ==
LOC: ED 15:17 → SOUTH 20:19
PROVIDERS: ADMIT Family Medicine; ATTEND Family Medicine
DX: K85.90 Acute pancreatitis without necrosis or infection, unspecified (principal); K92.2 Gastrointestinal hemorrhage, unspecified; J44.9 Chronic obstructive pulmonary disease, unspecified; I10 Essential (primary) hypertension; F10.21 Alcohol dependence, in remission; F17.210 Nicotine dependence, cigarettes, uncomplicated
CPT/HCPCS: 36415; 71010; 74177; 80053; 81002; 83690; 84484; 85025; 85027; 85610; 85730; 93005; J1170; J2405; J3490; J7030; J7060; 96365; 96375; 96376; 99222; 99232; 99238; 99283; 99284; S0028; S1016

== ENCOUNTER 2017-07-19 10:16 | Outpatient (CLI) | payer MEDICARE ==
[2017-07-19 10:43] LABS: BASOPHILS % 0.5 (0.0-1.5); EOSINOPHILS % 2.9 % (0.0-6.8); MEAN CORPUSCULAR HEMOGLOBIN 23.6 pg (28.0-34.0); MEAN CORPUSCULAR VOLUME 82.2 fl (80.0-100.0); MONOCYTES % 5.5 % (0.0-11.0); NEUTROPHILS # 6.8 # k/uL (1.4-7.7)
[2017-07-19 11:14] LABS: eGFR (African) > 60; eGFR (Non-African) > 60
== END 2017-07-19 10:20 ==
LOC: LAB 10:16
PROVIDERS: ATTEND Family Medicine
DX: K86.1 Other chronic pancreatitis (principal); D50.0 Iron deficiency anemia secondary to blood loss (chronic); D64.9 Anemia, unspecified
CPT/HCPCS: 36415; 80053; 83690; 85025

== ENCOUNTER 2017-11-02 13:33 | Inpatient (IN) | payer MEDICARE ==
[2017-11-02] MEDS ORDERED: 0.9 % SODIUM CHLORIDE 1,000 ML IV ONE ×4 (13:57→16:05)
[2017-11-02] MEDS ORDERED: ONDANSETRON HCL 4 MG TAB.RAPDIS PO ONE (13:58)
--- NOTE | 2017-11-02 14:06 | ED Physician Documentation ---
Abdominal Pain - HISTORIAN Historian: patient - HPI Stated Complaint: ABD PAIN Chief Complaint: Abdominal Pain Additonal Information: Cramping right upper and epigastric pain for 3 weeks. Pain radiates around to right back. Feels like previous episodes of pancreatitis. Has only had a little water to drink for 2 days and is unable to eat because that makes the pain worse. Slep little last night 2/2 pain. Vomited once last evening. Took 3 Tums last night w/o relief. Last normal bowel movement 2 days ago. No diarrhea. No blood in stool two days ago or emesis last evening. No othe rmodifying factors or associated signs. Onset: other (3 weeks) Duration: waxing, waning, persistent Context: denies: out of country travel Quality: cramping Associated Symptoms: denies: fever, coffee ground emesis, bloody emesis, diarrhea, bloody stools Exacerbated by: nothing Relieved by: nothing - ROS CONST: no problems - SOCIAL HX Smoking History: cigarettes Alcohol Use: occasionally - FAMILY HX Family History: no significant history - PAST HX Past History: other (pancratitis, GI bleed with "23 coils" placed 5 months ago) Ischemic Bowel Risk Factors: none Home Medications: Ambulatory Orders Medication Instructions Recorded Buspirone HCl [Buspar] 10 mg PO DAILY 05/02/17 Allergies/Adverse Reactions: Allergies Allergy/AdvReac Type Severity Reaction Status Date / Time oxycodone AdvReac Vomiting Verified 11/02/17 13:47 - VITAL SIGNS Vital Signs: Vital Signs Temp Pulse Resp BP Pulse Ox 98.1 F 91 H 18 120/77 99 11/02/17 13:41 11/02/17 13:41 11/02/17 13:41 11/02/17 13:41 11/02/17 13:41 - REVIEWED ASSESSMENTS Nursing Assessment Reviewed: Yes Vitals Reviewed: Yes Progress - Progress Progress: 1507, discussed with Dr. Rodgers. Will admit for hydration and pain control ED Results Lab/Radiology - Lab Results Lab Results: Lab Results 11/02/17 11/02/17 11/02/17 14:30 14:30 14:30 WBC 9.90 K/ul K/ul (4.00-12.00) RBC 6.17 M/ul H M/ul (3.90-5.20) Hgb 15.8 g/dL g/dL (12.0-18.0) Hct 55.1 % H % (37.0-53.0) MCV 89.3 fl fl (80.0-100.0) MCH 25.7 pg L pg (28.0-34.0) MCHC 28.8 g/dL L g/dL (30.0-36.0) RDW 18.3 % H % (11.3-14.3) Plt Count 488 K/mm3 H K/mm3 (130-400) Neut % (Auto) 72.2 % % (39.0-79.0) Lymph % (Auto) 21.1 % % (16.0-50.0) [place] % (Auto) 4.4 % % (0.0-11.0) Eos % (Auto) 0.5 % % (0.0-6.8) Baso % (Auto) 0.3 (0.0-1.5) Neut # (Auto) 7.2 # k/uL # k/uL (1.4-7.7) Lymph # (Auto) 2.1 # k/uL # k/uL (0.6-4.0) [place] # (Auto) 0.4 # k/uL # k/uL (0.0-0.9) Eos # (Auto) 0.0 # k/uL # k/uL (0.0-0.6) Baso # (Auto) 0.0 # k/uL # k/uL (0.0-0.5) Reactive Lymphs % 1.4 % % (0.0-5.0) Reactive Lymphs # 0.1 # k/uL # k/uL (0.0-0.8) Sodium 137 mmol/L mmol/L (136-145) Potassium 6.0 mmol/L H mmol/L (3.5-5.1) Chloride 100 mmol/L mmol/L (98-107) Carbon Dioxide 10 mmol/L L mmol/L (22-30) BUN 34 mg/dL H mg/dL (9-20) Creatinine 1.40 mg/dL H mg/dL (0.66-1.25) Estimated Creat Clear 51 Est GFR ( Amer) > 60 (60 - ) Est GFR (Non-Af Amer) 56 L (60 - ) Glucose 96 mg/dL mg/dL (74-106) Calcium 10.2 mg/dL mg/dL (8.4-10.2) Total Bilirubin 0.4 mg/dL mg/dL (0.2-1.3) AST 36 U/L U/L (15-46) ALT 50 U/L U/L (13-69) Alkaline Phosphatase 364 U/L H U/L (38-126) Total Protein 8.6 g/dL H g/dL (6.3-8.2) Albumin 5.1 g/dL H g/dL (3.5-5.0) Lipase 603 U/L H U/L (23-300) - Orders Orders: ED Orders Category Date Time Status Place IV Lock 1T Care 11/02/17 13:57 Active CBC/PLATELET/DIFF Routine Lab 11/02/17 14:30 Completed CMP Routine Lab 11/02/17 14:30 Completed LIPASE Stat Lab 11/02/17 14:30 Completed PT-INR Routine Lab 11/02/17 Ordered 0.9 % Sodium Chloride [Normal Saline] 1,000 ml Med 11/02/17 13:57 Discontinued IV .STK-MED 0.9 % Sodium Chloride [Normal Saline] 1,000 ml Med 11/02/17 13:57 Discontinued IV Q1H 0.9 % Sodium Chloride [Normal Saline] 1,000 ml Med 11/02/17 15:14 Active IV Q1H Morphine Sulfate Med 11/02/17 14:56 Discontinued 4 mg IVP NOW ONE Ondansetron HCl Rapdis [Zofran Odt] Med 11/02/17 13:57 Discontinued 8 mg .ROUTE .STK-MED ONE Ondansetron HCl Rapdis [Zofran Odt] Med 11/02/17 13:58 Discontinued 8 mg PO NOW ONE Transfer Routine Transfer 11/02/17 Ordered Abdominal Pain Physical Exam - Physical Exam General Appearance: alert, mild distress EENT: eye inspection normal, ENT inspection normal (only a few remaining teeth), pharynx normal NECK: normal inspection, supple RESPIRATORY: no resp distress, breath sounds normal CVS: reg rate & rhythm, heart sounds normal ABDOMEN: normal bowel sounds, no distension, tenderness (diffuse, riuq. ), guarding (seems to be voluntary) BACK: normal inspection, no CVA tenderness SKIN: warm/dry, pallor (mild) EXTREMITIES: normal range of motion (gait, stance), no evidence of injury NEURO: CN's nml as tested, motor nml, sensation nml Vital Signs: Vital Signs Temp Pulse Resp BP Pulse Ox 98.1 F 91 H 18 120/77 99 11/02/17 13:41 11/02/17 13:41 11/02/17 13:41 11/02/17 13:41 11/02/17 13:41 Discharge Clincal Impression: Acute pancreatitis Qualifiers: Pancreatitis type: unspecified pancreatitis type Acute pancreatitis complication: unspecified Qualified Code(s): K85.90 - Acute pancreatitis without necrosis or infection, unspecified Referrals: Scottie Rodgers MD [Primary Care Provider] - 2 Days Condition: Fair Disposition: ADMITTED INPATIENT Decision to Admit: [id number] Decision Time: 15:13
[2017-11-02] MEDS: ONDANSETRON HCL 4 MG TAB.RAPDIS ONE ×2 (14:28→14:37)
[2017-11-02 14:39] LABS: BASOPHILS % 0.3 (0.0-1.5); EOSINOPHILS % 0.5 % (0.0-6.8); MEAN CORPUSCULAR HEMOGLOBIN 25.7 pg (28.0-34.0); MEAN CORPUSCULAR VOLUME 89.3 fl (80.0-100.0); MONOCYTES % 4.4 % (0.0-11.0); NEUTROPHILS # 7.2 # k/uL (1.4-7.7)
[2017-11-02 14:55] LABS: eGFR (African) > 60; eGFR (Non-African) 56
[2017-11-02] MEDS ORDERED: MORPHINE SULFATE 10 MG/ML CARTRIDGE IVP ONE (14:56)
[2017-11-02] MEDS ORDERED: HYDROmorphone HCL/PF 1 MG/ML DISP.SYRIN IVP PRN (16:15)
--- NOTE | 2017-11-02 16:19 | History and Physical Report ---
History of Present Illnes - History of Present Illness Reason for Visit: abd pain, elevated lipase History of Present Illness: Patient is a 57-year-old white male with a history of chronic pancreatitis with acute exacerbations. Patient states for the last three weeks is started having some right upper quadrant epigastric abdominal pain consistent with flareup of his pancreatitis. Over the last 48 hours prior to admission pain became worse. Patient has had some emesis. Patient denies any fever or chills. Pain did seem to be worse post eating. Patient was subsequently seen in the emergency room was felt to have a acute on chronic pancreatitis. Patient was subsequently admitted to the hospital for further care and evaluation. - Past Medical History Cardiac: HTN Pulmonary: COPD, Other (smoker) Hepatobiliary: Other (History of recurrent pancreatitis) Psych: Addictions (alcoholism) - Past Surgical History Past Surgical History: Other (J tube placement, coil placement for esophagela varicocele) - Past Family History Mother Family History: (52yo), Other (complication of EtOHic) Father Family History: CAD, DM, (67yo), Other (HTN) Brother 1 Family History: (72yo unkown cause) Brother 2 Family History: None Sister 1 Family History: , Other (Drug over dose) Sister 2 Family History: , Other (unknown cause) Sister 3 Family History: None - Past Social History Smoke: <1 pack per day (1/2 ppd) Occupation: disabled Alcohol: Occassional (1 beer daily) Drugs: None Lives: With Family Domestic Violence: Negative - Health Maintenance Health Maintenance: Cholesterol Influenza Vaccine: Current for this Influenza Season Pneumonia Vaccine: No Resuscitation Status: Resusciation Status Resuscitation Status Full Code - Unable to Obtain History Unable to Obtain: No Review of Systems - Review of Systems Constitutional: Chills, Weakness, Other (patient has had some weight loss). negative: Fever Eyes: negative: pain, vision change, redness ENT: negative: Ear Pain, Ear Discharge, Nose Pain, Nose Discharge, Nose Congestion, Throat Pain, Throat Swelling Respiratory: negative: Cough, Shortness of Breath, Hemoptysis, SOB with Excertion, Pleuritic Pain, Wheezing Cardiovascular: negative: Chest Pain, Palpitations, Orthopnea, Light Headedness Gastrointestinal: Nausea, Vomiting, Abdominal Pain. negative: Diarrhea, Constipation, Melena, Hematochezia Genitourinary: negative: Dysuria, Frequency, Incontinence, Hematuria Musculoskeletal: Back Pain (mild). negative: Neck Pain, Shoulder Pain, Arm Pain Skin: negative: Rash Neurological: negative: Weakness, Numbness, Incoordination, Change in Speech - Medications/Allergies Allergies/Adverse Reactions: Allergies Allergy/AdvReac Type Severity Reaction Status Date / Time oxycodone AdvReac Vomiting Verified 11/02/17 13:47 Current Inpatient Medications: Current Inpatient Medications Amiodarone HCl (Pacerone) 200 mg PO BID LAM Buspirone HCl (Buspar) 10 mg PO D LAM Hydromorphone HCl (Dilaudid) 1 mg IVP Q4 PRN PRN Reason: PAIN Sodium Chloride (Normal Saline) 1,000 mls @ 125 mls/hr IV Q1H ONE Stop: 11/02/17 23:13 Pantoprazole Sodium 40 mg/ (Sodium Chloride) 50 mls @ 100 mls/hr IV DAILY LAM Lisinopril (Prinivil) 20 mg PO DAILY LAM Miscellaneous (Patient Own Med) 1 each PO AC15 LAM Miscellaneous (Patient Own Med) 1 each PO D LAM Sucralfate (Carafate) 1 gm PO ACHS LAM Exam - Exam Vital Signs: Vital Signs (72 hours) 11/02/17 15:53 Pulse Rate [ 63 Left Pulse ox] Respiratory 18 Rate Blood Pressure 142/71 [Left Arm] O2 Sat by Pulse 99 Oximetry General: Alert, Oriented to Person, Oriented to Place, Oriented to Time, Cooperative HEENT: Atraumatic, PERRLA, EOMI, Mouth Mucous membr. moist/[place], Nose Mucous membr. moist/[place], Hearing Grossly Normal Neck: Normal Range of Motion. No: Stridor, Lymphadenopathy Carotids: WNL Thyroid: WNL Lungs: Clear to auscultation, Normal air movement, Speaks full Sentences. No: Respiratory Distress, Wheezes, Rales, Rhonchi Cardiovascular: Regular rate, Normal S1, Normal S2, No murmurs Abdomen: Soft, Other (tenderness in the RUQ and epigastric area, no guarding or rebound tenderness noted.), Decreased Bowel Sounds. No: Distended, Rigid Integumentary: Normal, [place], Warm, Dry Extremities: No clubbing, No cyanosis, No edema, Normal pulses Neurological: Normal gait, Normal speech, Strength Equal Bilat Psych/Mental Status: Mental status NL, Mood NL, Appropriate Affect, Intact Judgment Assessment/Plan - Assessment/Plan (1) Acute on chronic pancreatitis Status: Acute Current Visit: No Assessment: Patient will be placed NPO, Will monitor electrolytes and lipase. (2) Anxiety Status: Acute Current Visit: No Assessment: stable (3) Alcoholism in remission Status: Acute Current Visit: No Assessment: patient remains off EtOH (4) Essential hypertension Status: Chronic Current Visit: No Assessment: continue home meds VTE Assessment - RISK FACTOR SCORE VTE RISK FACTOR SCORES: AGE 40-60 YEARS, ANTICIPATED BED CONFINEMENT OR IMMOBILIZATION > 24 HOURS
[2017-11-02] MEDS: PATIENT OWN MED 1 EACH EACH PO SCH (16:58)
[2017-11-02 17:10] VITALS: BMI 17.6
[2017-11-02] MEDS ORDERED: PANTOPRAZOLE SODIUM INJ. 40 MG VIAL ONE (17:31)
[2017-11-02] MEDS: SUCRALFATE 1 GM TABLET PO SCH ×2 (17:34→20:59)
[2017-11-02] MEDS: ENOXAPARIN SODIUM 30 MG/0.3 ML DISP.SYRIN SQ SCH (17:34)
[2017-11-02] MEDS: PANTOPRAZOLE SODIUM 40 MG in 0.9 % SODIUM CHLORIDE 50 ML IV SCH (17:49)
[2017-11-02] MEDS: HYDROmorphone HCL/PF 2 MG/ML DISP.SYRIN IVP PRN ×2 (19:30→23:30)
[2017-11-02] MEDS: AMIODARONE HCL 200 MG TABLET PO SCH (20:59)
[2017-11-02] MEDS ORDERED: BUSPIRONE HCL 5 MG TABLET PO ONE (23:45)
[2017-11-02] MEDS ORDERED: LISINOPRIL 20 MG TABLET ONE (23:45)
[2017-11-03] MEDS: HYDROmorphone HCL/PF 2 MG/ML DISP.SYRIN IVP PRN ×3 (03:34→11:28)
[2017-11-03] MEDS: SUCRALFATE 1 GM TABLET PO SCH ×4 (06:09→20:00)
[2017-11-03] MEDS ORDERED: 0.9 % SODIUM CHLORIDE 1,000 ML IV ONE ×3 (07:44→19:47)
[2017-11-03 07:45] LABS: BASOPHILS % 0.4 (0.0-1.5); EOSINOPHILS % 1.3 % (0.0-6.8); MEAN CORPUSCULAR HEMOGLOBIN 25.8 pg (28.0-34.0); MEAN CORPUSCULAR VOLUME 88.4 fl (80.0-100.0); MONOCYTES % 4.1 % (0.0-11.0)
[2017-11-03] MEDS ORDERED: 0.9 % SODIUM CHLORIDE 1,000 ML IV SCH (08:00)
[2017-11-03 08:06] LABS: eGFR (African) > 60; eGFR (Non-African) > 60
[2017-11-03] MEDS ORDERED: PANTOPRAZOLE SODIUM INJ. 40 MG VIAL ONE (08:15)
[2017-11-03] MEDS: BUSPIRONE HCL 5 MG TABLET PO SCH (08:27)
[2017-11-03] MEDS: LISINOPRIL 20 MG TABLET PO SCH (08:27)
[2017-11-03] MEDS: AMIODARONE HCL 200 MG TABLET PO SCH ×2 (08:27→20:00)
[2017-11-03] MEDS: PATIENT OWN MED 1 EACH EACH PO SCH ×4 (08:29→16:39)
[2017-11-03] MEDS: PANTOPRAZOLE SODIUM 40 MG in 0.9 % SODIUM CHLORIDE 50 ML IV SCH (08:29)
[2017-11-03 12:01] LABS: eGFR (African) > 60; eGFR (Non-African) > 60
--- NOTE | 2017-11-03 15:53 | Inpatient Progress Note ---
Subjective - Required Recertification Statement I anticipate X number of days because-include discharge plan: 2 days - Review of Systems Events since last encounter: Patient states that his pain is about the same. Dilaudid does not seem to be holding him. Has not had any further vomiting. No fever noted. Objective - Exam Vitals and I&O: Vital Signs Temp 99.4 F 11/03/17 14:00 Pulse 57 L 11/03/17 14:00 Resp 20 11/03/17 14:00 BP 148/73 11/03/17 14:00 Pulse Ox 97 11/03/17 14:00 Intake & Output 11/02/17 11/03/17 11/03/17 23:59 11:59 23:59 Intake Total 739 510 5097 Balance 113 126 2093 Weight 57.606 kg Intake: IV 805 598 3619 Right Forearm 763 041 1601 Oral 20 30 Other: Voiding Method Urinal Toilet # Voids 1 2 3 General: Alert, Oriented to Person, Oriented to Place, Oriented to Time, Cooperative Neck: Supple Lungs: Clear to auscultation, Normal air movement, Speaks full Sentences. No: Respiratory Distress Cardiovascular: Regular rate, Normal S1, Normal S2, No murmurs Abdomen: Soft, Other (tenderness to the RUQ area), Decreased Bowel Sounds Extremities: No clubbing, No cyanosis Neurological: Normal gait, Normal speech, Strength Equal Bilat, Sensation intact Psych/Mental Status: Mental status NL, Mood NL, Appropriate Affect, Intact Judgment - Results Results: Laboratory Results WBC 12.00 K/ul (4.00-12.00) 11/03/17 07:24 RBC 5.41 M/ul (3.90-5.20) H 11/03/17 07:24 Hgb 14.0 g/dL (12.0-18.0) 11/03/17 07:24 Hct 47.8 % (37.0-53.0) 11/03/17 07:24 MCV 88.4 fl (80.0-100.0) 11/03/17 07:24 MCH 25.8 pg (28.0-34.0) L 11/03/17 07:24 MCHC 29.2 g/dL (30.0-36.0) L 11/03/17 07:24 RDW 18.3 % (11.3-14.3) H 11/03/17 07:24 Plt Count 438 K/mm3 (130-400) H 11/03/17 07:24 Neut % (Auto) 75.0 % (39.0-79.0) 11/03/17 07:24 Lymph % (Auto) 18.1 % (16.0-50.0) 11/03/17 07:24 [place] % (Auto) 4.1 % (0.0-11.0) 11/03/17 07:24 Eos % (Auto) 1.3 % (0.0-6.8) 11/03/17 07:24 Baso % (Auto) 0.4 (0.0-1.5) 11/03/17 07:24 Neut # (Auto) 9.0 # k/uL (1.4-7.7) H 11/03/17 07:24 Lymph # (Auto) 2.2 # k/uL (0.6-4.0) 11/03/17 07:24 [place] # (Auto) 0.5 # k/uL (0.0-0.9) 11/03/17 07:24 Eos # (Auto) 0.2 # k/uL (0.0-0.6) 11/03/17 07:24 Baso # (Auto) 0.0 # k/uL (0.0-0.5) 11/03/17 07:24 Reactive Lymphs % 1.2 % (0.0-5.0) 11/03/17 07:24 Reactive Lymphs # 0.1 # k/uL (0.0-0.8) 11/03/17 07:24 Sodium 138 mmol/L (136-145) 11/03/17 11:08 Potassium 5.0 mmol/L (3.5-5.1) 11/03/17 11:08 Chloride 105 mmol/L (98-107) 11/03/17 11:08 Carbon Dioxide 16 mmol/L (22-30) L 11/03/17 11:08 BUN 18 mg/dL (9-20) 11/03/17 11:08 Creatinine 0.80 mg/dL (0.66-1.25) 11/03/17 11:08 Estimated Creat Clear 84 11/03/17 11:08 Est GFR ( Amer) > 60 (60-) 11/03/17 11:08 Est GFR (Non-Af Amer) > 60 (60-) 11/03/17 11:08 Glucose 96 mg/dL (74-106) 11/03/17 11:08 Calcium 9.4 mg/dL (8.4-10.2) 11/03/17 11:08 Total Bilirubin 0.6 mg/dL (0.2-1.3) 11/03/17 07:24 AST 102 U/L (15-46) H 11/03/17 07:24 ALT 116 U/L (13-69) H 11/03/17 07:24 Alkaline Phosphatase 420 U/L (38-126) H 11/03/17 07:24 Total Protein 7.9 g/dL (6.3-8.2) 11/03/17 07:24 Albumin 4.4 g/dL (3.5-5.0) 11/03/17 07:24 Lipase 732 U/L (23-300) H 11/03/17 11:08 Assessment/Plan - Assessment/Plan (1) Acute on chronic pancreatitis Status: Acute Current Visit: No Assessment: Will conitnue with NPO except for meds, follow ipase and other labs (2) Alcoholism in remission Status: Acute Current Visit: No (3) Anxiety Status: Acute Current Visit: No (4) Essential hypertension Status: Chronic Current Visit: No Assessment: stable
[2017-11-03] MEDS: 0.9 % SODIUM CHLORIDE 1,000 ML IV SCH (16:07)
[2017-11-03] MEDS: ENOXAPARIN SODIUM 30 MG/0.3 ML DISP.SYRIN SQ SCH (16:39)
[2017-11-03] MEDS: fentaNYL CITRATE/PF 100 MCG/ 2ML AMP IVP SCH (19:13)
[2017-11-04] MEDS: fentaNYL CITRATE/PF 100 MCG/ 2ML AMP IVP SCH ×4 (00:15→18:08)
[2017-11-04] MEDS ORDERED: 0.9 % SODIUM CHLORIDE 1,000 ML IV ONE ×2 (00:47→06:20)
[2017-11-04] MEDS: 0.9 % SODIUM CHLORIDE 1,000 ML IV SCH ×2 (01:45→14:18)
[2017-11-04] MEDS: SUCRALFATE 1 GM TABLET PO SCH ×2 (06:13→11:10)
[2017-11-04] MEDS: PATIENT OWN MED 1 EACH EACH PO SCH ×4 (07:02→17:16)
[2017-11-04] MEDS ORDERED: PANTOPRAZOLE SODIUM INJ. 40 MG VIAL ONE (08:06)
[2017-11-04] MEDS: AMIODARONE HCL 200 MG TABLET PO SCH ×2 (08:20→20:00)
[2017-11-04] MEDS: BUSPIRONE HCL 5 MG TABLET PO SCH (08:20)
[2017-11-04] MEDS: LISINOPRIL 20 MG TABLET PO SCH (08:21)
[2017-11-04] MEDS: PANTOPRAZOLE SODIUM 40 MG in 0.9 % SODIUM CHLORIDE 50 ML IV SCH (08:21)
--- NOTE | 2017-11-04 12:19 | Inpatient Progress Note ---
Subjective - Required Recertification Statement I anticipate X number of days because-include discharge plan: 2 - Review of Systems Subjective: Patient abdominal pain has improved some. Patient however stated he is still having some. Patient is not had any nausea vomiting or diarrhea. Patient is not had any fever or chills. Patient remained NPO Objective - Exam Vitals and I&O: Vital Signs Temp 98.2 F 11/04/17 10:00 Pulse 57 L 11/04/17 10:00 Resp 16 11/04/17 09:00 BP 159/78 11/04/17 10:00 Pulse Ox 100 11/04/17 10:00 Intake & Output 11/03/17 11/04/17 11/04/17 23:59 11:59 23:59 Intake Total 3230 100 Balance 3230 100 Intake: IV 3200 100 Right Forearm 3200 100 Oral 30 Other: Voiding Method Toilet Toilet # Voids 3 4 General: Alert, Oriented to Person, Oriented to Place, Oriented to Time, Cooperative, Mild distress Neck: Supple Lungs: Clear to auscultation, Normal air movement, Speaks full Sentences. No: Wheezes, Rales, Rhonchi Cardiovascular: Regular rate, Normal S1, Normal S2, No murmurs Abdomen: Normal bowel sounds, Soft, Other (Tenderness to the epigastric area present. No guarding or rebound tenderness appreciated). No: Distended Extremities: No clubbing, No cyanosis, No edema, No tenderness/swelling Skin: Normal, [place], Warm, Dry Neurological: Sensation intact, Cranial nerves 3-12 NL - Results Results: Laboratory Results WBC 12.00 K/ul (4.00-12.00) 11/03/17 07:24 RBC 5.41 M/ul (3.90-5.20) H 11/03/17 07:24 Hgb 14.0 g/dL (12.0-18.0) 11/03/17 07:24 Hct 47.8 % (37.0-53.0) 11/03/17 07:24 MCV 88.4 fl (80.0-100.0) 11/03/17 07:24 MCH 25.8 pg (28.0-34.0) L 11/03/17 07:24 MCHC 29.2 g/dL (30.0-36.0) L 11/03/17 07:24 RDW 18.3 % (11.3-14.3) H 11/03/17 07:24 Plt Count 438 K/mm3 (130-400) H 11/03/17 07:24 Neut % (Auto) 75.0 % (39.0-79.0) 11/03/17 07:24 Lymph % (Auto) 18.1 % (16.0-50.0) 11/03/17 07:24 [place] % (Auto) 4.1 % (0.0-11.0) 11/03/17 07:24 Eos % (Auto) 1.3 % (0.0-6.8) 11/03/17 07:24 Baso % (Auto) 0.4 (0.0-1.5) 11/03/17 07:24 Neut # (Auto) 9.0 # k/uL (1.4-7.7) H 11/03/17 07:24 Lymph # (Auto) 2.2 # k/uL (0.6-4.0) 11/03/17 07:24 [place] # (Auto) 0.5 # k/uL (0.0-0.9) 11/03/17 07:24 Eos # (Auto) 0.2 # k/uL (0.0-0.6) 11/03/17 07:24 Baso # (Auto) 0.0 # k/uL (0.0-0.5) 11/03/17 07:24 Reactive Lymphs % 1.2 % (0.0-5.0) 11/03/17 07:24 Reactive Lymphs # 0.1 # k/uL (0.0-0.8) 11/03/17 07:24 Sodium 138 mmol/L (136-145) 11/03/17 11:08 Potassium 5.0 mmol/L (3.5-5.1) 11/03/17 11:08 Chloride 105 mmol/L (98-107) 11/03/17 11:08 Carbon Dioxide 16 mmol/L (22-30) L 11/03/17 11:08 BUN 18 mg/dL (9-20) 11/03/17 11:08 Creatinine 0.80 mg/dL (0.66-1.25) 11/03/17 11:08 Estimated Creat Clear 84 11/03/17 11:08 Est GFR ( Amer) > 60 (60-) 11/03/17 11:08 Est GFR (Non-Af Amer) > 60 (60-) 11/03/17 11:08 Glucose 96 mg/dL (74-106) 11/03/17 11:08 Calcium 9.4 mg/dL (8.4-10.2) 11/03/17 11:08 Total Bilirubin 0.6 mg/dL (0.2-1.3) 11/03/17 07:24 AST 102 U/L (15-46) H 11/03/17 07:24 ALT 116 U/L (13-69) H 11/03/17 07:24 Alkaline Phosphatase 420 U/L (38-126) H 11/03/17 07:24 Total Protein 7.9 g/dL (6.3-8.2) 11/03/17 07:24 Albumin 4.4 g/dL (3.5-5.0) 11/03/17 07:24 Lipase 769 U/L (23-300) H 11/04/17 07:55 Assessment/Plan - Assessment/Plan (1) Acute on chronic pancreatitis Status: Acute Assessment: stable, lipase is still increasing (2) Alcoholism in remission Status: Acute (3) Anxiety Status: Chronic Assessment: stable (4) Essential hypertension Status: Chronic Assessment: stable
[2017-11-04] MEDS: PANTOPRAZOLE SODIUM 40 MG TABLET PO SCH (17:16)
[2017-11-04] MEDS: ENOXAPARIN SODIUM 30 MG/0.3 ML DISP.SYRIN SQ SCH (17:16)
[2017-11-04] MEDS: buPROPion 150 MG TABLET.ER PO SCH (20:00)
[2017-11-05] MEDS: fentaNYL CITRATE/PF 100 MCG/ 2ML AMP IVP SCH ×4 (00:24→18:13)
[2017-11-05] MEDS: 0.9 % SODIUM CHLORIDE 1,000 ML IV SCH ×2 (00:27→21:10)
[2017-11-05] MEDS: PATIENT OWN MED 1 EACH EACH PO SCH ×4 (06:22→16:02)
[2017-11-05] MEDS: PANTOPRAZOLE SODIUM 40 MG TABLET PO SCH ×2 (06:28→16:03)
[2017-11-05 06:56] LABS: BASOPHILS % 0.2 (0.0-1.5); EOSINOPHILS % 2.1 % (0.0-6.8); MEAN CORPUSCULAR VOLUME 82.6 fl (80.0-100.0); NEUTROPHILS # 5.1 # k/uL (1.4-7.7)
[2017-11-05 07:25] LABS: eGFR (African) > 60; eGFR (Non-African) > 60
[2017-11-05] MEDS: BUSPIRONE HCL 5 MG TABLET PO SCH (08:01)
[2017-11-05] MEDS: LISINOPRIL 20 MG TABLET PO SCH (08:01)
[2017-11-05] MEDS: buPROPion 150 MG TABLET.ER PO SCH ×2 (08:01→21:08)
[2017-11-05] MEDS: AMIODARONE HCL 200 MG TABLET PO SCH ×2 (08:02→21:08)
[2017-11-05] MEDS: ENOXAPARIN SODIUM 30 MG/0.3 ML DISP.SYRIN SQ SCH (16:03)
--- NOTE | 2017-11-05 16:47 | Diagnostic Imaging Report ---
DEION RODRIGUEZ [facility] [address] [facility].[address] [address] Report Submission Date: Nov 05, 2017 4:28:15 PM CDT Patient Study Name: JOE GEORGE Date: Nov 05, 2017 3:12:00 PM CDT Modality Type: CT\SR Gender: M Description: CT ABD PELVIS W/ CON : 62 Institution: [facility] Physician: DEION RODRIGUEZ CT abdomen and pelvis with contrast History: Pancreatitis. The patient has a history of coil placement to stop bleeding Technique: Helically acquired images were obtained from the hemidiaphragms to the pelvic floor following IV contrast. There is some oral contrast in the colon. There is mild intra and extrahepatic biliary ductal dilatation. No liver masses are seen. The spleen is not enlarged. Heavy calcifications of the body and tail of the pancreas are present consistent with chronic pancreatitis. The head of the pancreas and, therefore, the distal common bile duct, cannot be adequately assessed secondary to extensive beam hardening artifact associated with presumed coils focally at the level of the pancreatic head. There are additionally coils anteriorly within the abdomen at a similar level. The duodenal sweep appears abnormally thick walled. In general, the wall of the stomach, especially along the lesser curvature, is abnormal both thickened and edematous. There is a probable cyst medially of the right kidney. Otherwise, the kidneys are unremarkable. The abdominal aorta is atherosclerotic but not aneurysmal. Small and large bowel loops in the abdomen and pelvis are normal in caliber. The bladder, seminal vesicles and prostate gland are unremarkable. There is no free fluid in the pelvis. There is an apparent partly visualized 3-4 mm nodule of the lingula. Otherwise , the lung bases are clear. Vacuum disc phenomenon with disc space narrowing is present at L1/2 and L5/S1. Impression: There is mild intra and extrahepatic biliary ductal dilatation. However, the common bile duct cannot be accurately assessed due to extensive beam hardening artifact from presumed coils near the level of pancreatic head. Ultrasound may be helpful as MRI would also be degraded. Adjacent to these presumed coils, the duodenal sweep appears abnormally thick walled, probably infectious or inflammatory in nature. There is the sequelae of extensive chronic pancreatitis. There is no definitive evidence for acute pancreatitis. The wall of the stomach, especially along the lesser curvature, is thick-walled and edematous, nonspecific but likely infectious or inflammatory. These findings can be seen in the setting of acute pancreatitis but the adjacent pancreas does not appear to be inflamed. Probable cyst medially at the mid pole of the right kidney. 3-4 mm partly visualized nodule of the lingula. Electronically signed on Nov 05 MTDD
[2017-11-06] MEDS: fentaNYL CITRATE/PF 100 MCG/ 2ML AMP IVP SCH ×3 (00:27→13:26)
[2017-11-06] MEDS: PANTOPRAZOLE SODIUM 40 MG TABLET PO SCH (06:05)
[2017-11-06] MEDS: 0.9 % SODIUM CHLORIDE 1,000 ML IV SCH (07:10)
[2017-11-06] MEDS: PATIENT OWN MED 1 EACH EACH PO SCH ×3 (07:23→11:49)
[2017-11-06] MEDS: buPROPion 150 MG TABLET.ER PO SCH (08:47)
[2017-11-06] MEDS: BUSPIRONE HCL 5 MG TABLET PO SCH (08:47)
[2017-11-06] MEDS: AMIODARONE HCL 200 MG TABLET PO SCH (08:47)
[2017-11-06] MEDS: LISINOPRIL 20 MG TABLET PO SCH (08:48)
[2017-11-06 13:54] VITALS: BP 165/92
--- NOTE | 2017-12-09 21:27 | Inpatient Progress Note ---
Subjective - Required Recertification Statement I anticipate X number of days because-include discharge plan: 2 - Review of Systems Subjective: Patient abdominal pain about the same. Still requires pain meds.. Patient however stated he is still having some. Patient is not had any nausea vomiting or diarrhea. Patient is not had any fever or chills. Patient remained NPO General: Denies: Chills Gastrointestinal: Nausea, Abdominal Pain. Denies: Vomiting, Diarrhea, Constipation Objective - Exam Vitals and I&O: Vital Signs Temp 98.2 F 11/06/17 13:52 Pulse 67 11/06/17 13:52 Resp 22 11/06/17 13:52 BP 165/92 11/06/17 13:52 Pulse Ox 99 11/06/17 13:52 General: Alert, Oriented to Person, Oriented to Place, Oriented to Time, Mild distress Neck: Supple Lungs: Clear to auscultation, Normal air movement Cardiovascular: Regular rate, Normal S1, Normal S2, No murmurs Abdomen: Normal bowel sounds, Soft, Other (tender. No guarding the rebound tenderness appreciated.,). No: Distended, Rigid Psych/Mental Status: Mental status NL, Appropriate Affect, Intact Judgment - Results Results: Laboratory Results WBC 6.90 K/ul (4.00-12.00) 11/05/17 06:30 RBC 4.57 M/ul (3.90-5.20) 11/05/17 06:30 Hgb 11.9 g/dL (12.0-18.0) L 11/05/17 06:30 Hct 37.7 % (37.0-53.0) 11/05/17 06:30 MCV 82.6 fl (80.0-100.0) 11/05/17 06:30 MCH 26.0 pg (28.0-34.0) L 11/05/17 06:30 MCHC 31.5 g/dL (30.0-36.0) 11/05/17 06:30 RDW 18.5 % (11.3-14.3) H 11/05/17 06:30 Plt Count 289 K/mm3 (130-400) 11/05/17 06:30 Neut % (Auto) 73.3 % (39.0-79.0) 11/05/17 06:30 Lymph % (Auto) 19.5 % (16.0-50.0) 11/05/17 06:30 [place] % (Auto) 4.0 % (0.0-11.0) 11/05/17 06:30 Eos % (Auto) 2.1 % (0.0-6.8) 11/05/17 06:30 Baso % (Auto) 0.2 (0.0-1.5) 11/05/17 06:30 Neut # (Auto) 5.1 # k/uL (1.4-7.7) 11/05/17 06:30 Lymph # (Auto) 1.4 # k/uL (0.6-4.0) 11/05/17 06:30 [place] # (Auto) 0.3 # k/uL (0.0-0.9) 11/05/17 06:30 Eos # (Auto) 0.1 # k/uL (0.0-0.6) 11/05/17 06:30 Baso # (Auto) 0.0 # k/uL (0.0-0.5) 11/05/17 06:30 Reactive Lymphs % 1.0 % (0.0-5.0) 11/05/17 06:30 Reactive Lymphs # 0.1 # k/uL (0.0-0.8) 11/05/17 06:30 Sodium 136 mmol/L (136-145) 11/05/17 06:30 Potassium 3.8 mmol/L (3.5-5.1) 11/05/17 06:30 Chloride 109 mmol/L (98-107) H 11/05/17 06:30 Carbon Dioxide 14 mmol/L (22-30) L 11/05/17 06:30 BUN 4 mg/dL (9-20) L 11/05/17 06:30 Creatinine 0.50 mg/dL (0.66-1.25) L 11/05/17 06:30 Estimated Creat Clear 134 11/05/17 06:30 Est GFR ( Amer) > 60 (60-) 11/05/17 06:30 Est GFR (Non-Af Amer) > 60 (60-) 11/05/17 06:30 Glucose 121 mg/dL (74-106) H 11/05/17 06:30 Calcium 9.0 mg/dL (8.4-10.2) 11/05/17 06:30 Total Bilirubin 0.5 mg/dL (0.2-1.3) 11/05/17 06:30 AST 44 U/L (15-46) 11/05/17 06:30 ALT 67 U/L (13-69) 11/05/17 06:30 Alkaline Phosphatase 372 U/L (38-126) H 11/05/17 06:30 Total Protein 5.9 g/dL (6.3-8.2) L 11/05/17 06:30 Albumin 3.3 g/dL (3.5-5.0) L 11/05/17 06:30 Lipase 453 U/L (23-300) H 11/06/17 09:20 Assessment/Plan - Assessment/Plan (1) Acute on chronic pancreatitis Status: Acute Assessment: Lipase patient has increased to 453 today. Patient stated he is remaining N's PO. Patient however states that his pain does seem to be improving some. At the lipase has not improve by tomorrow will consider G.I. consultation. (2) Alcoholism in remission Status: Acute (3) Anxiety Status: Chronic (4) Essential hypertension Status: Chronic Assessment: Stable on home medications.
--- NOTE | 2017-12-09 21:30 | Discharge Summary ---
Discharge Summary - Discharge Sumary History of Present Illness: Patient is a 57-year-old white male with a history of chronic pancreatitis with acute exacerbations. Patient states for the last three weeks is started having some right upper quadrant epigastric abdominal pain consistent with flareup of his pancreatitis. Over the last 48 hours prior to admission pain became worse. Patient has had some emesis. Patient denies any fever or chills. Pain did seem to be worse post eating. Patient was subsequently seen in the emergency room was felt to have a acute on chronic pancreatitis. Patient was subsequently admitted to the hospital for further care and evaluation. Home Medications: Ambulatory Orders Medication Instructions Recorded Buspirone HCl [Buspar] 10 mg PO DAILY 05/02/17 Allergies/Adverse Reactions: Allergies Allergy/AdvReac Type Severity Reaction Status Date / Time oxycodone AdvReac Vomiting Verified 11/02/17 13:47 Discharge Summary: Patient was admitted to the hospital and placed with nothing to eat by mouth. Patient was maintained on IV fluids. Patient was given IV pain medications as needed. Patient with continued with his home medications for hypertension. Initially patient like patient did increase however on the day of admission it had decreased to 453. Patient was having minimum pain and was tolerating a soft diet. It was felt that the patient could be discharged home safely and followed up on an outpatient basis. Patient was advised that we would need to make a referral to a individual small group instructor for further evaluation of his reoccurring pancreatitis. Patient with discharged in stable condition.
== END 2017-11-06 14:42 | disposition home or self-care (01) | DRG 440 ==
LOC: ED 13:33 → SOUTH 15:19 → UNDOADMOB 15:19 → OBSVTOIN 15:19
PROVIDERS: ADMIT Family Medicine; ATTEND Family Medicine
DX: K85.90 Acute pancreatitis without necrosis or infection, unspecified (principal); E86.0 Dehydration
CPT/HCPCS: 36415; 74177; 80048; 80053; 83690; 85025; A9270; J1170; J1650; J2270; J3010; J7030; 96360; 96374; 99222; 99232; S1016

== ENCOUNTER 2017-11-15 15:16 | Outpatient (CLI) | payer MEDICARE, OTHER ==
[2017-11-15 15:35] LABS: BASOPHILS % 0.2 (0.0-1.5); EOSINOPHILS % 1.2 % (0.0-6.8); MEAN CORPUSCULAR HEMOGLOBIN 26.6 pg (28.0-34.0); MEAN CORPUSCULAR VOLUME 84.1 fl (80.0-100.0); NEUTROPHILS # 6.6 # k/uL (1.4-7.7)
[2017-11-15 15:56] LABS: eGFR (African) > 60; eGFR (Non-African) > 60
== END 2017-11-15 15:17 ==
LOC: LAB 15:16
PROVIDERS: ATTEND Family Medicine
DX: K86.1 Other chronic pancreatitis (principal)
CPT/HCPCS: 36415; 80053; 83690; 85025

== ENCOUNTER 2017-11-19 09:38 | Outpatient (CLI) | payer MEDICARE, OTHER ==
[2017-11-19 10:24] LABS: eGFR (African) > 60; eGFR (Non-African) > 60
== END 2017-11-19 09:40 ==
LOC: LAB 09:38
PROVIDERS: ATTEND Family Medicine
DX: K86.1 Other chronic pancreatitis (principal)
CPT/HCPCS: 36415; 80053; 83690

== ENCOUNTER 2017-11-26 10:36 | Outpatient (CLI) | payer MEDICARE ==
[2017-11-26 11:15] LABS: eGFR (African) > 60; eGFR (Non-African) > 60
== END 2017-11-26 10:38 ==
LOC: LAB 10:36
PROVIDERS: ATTEND Family Medicine
DX: K86.1 Other chronic pancreatitis (principal)
CPT/HCPCS: 36415; 80053; 83690

== ENCOUNTER 2017-12-12 10:18 | Outpatient (CLI) | payer MEDICARE, OTHER ==
[2017-12-12 10:59] LABS: eGFR (African) > 60; eGFR (Non-African) > 60
== END 2017-12-12 10:20 ==
LOC: LAB 10:18
PROVIDERS: ATTEND Family Medicine
DX: K86.1 Other chronic pancreatitis (principal)
CPT/HCPCS: 36415; 80053; 83690

== ENCOUNTER 2017-12-18 08:02 | Outpatient (CLI) | payer MEDICARE, OTHER ==
--- NOTE | 2017-12-18 16:24 | Diagnostic Imaging Report ---
DEION RODRIGUEZ [facility] [address] [facility].[address] [address] Report Submission Date: Dec 18, 2017 8:53:18 AM CDT Patient Study Name: JOE GEORGE Date: Dec 18, 2017 8:16:11 AM CDT Modality Type: US Gender: M Description: US RUQ : 62 Institution: [facility] Physician: DEION RODRIGUEZ Examination: Ultrasound gallbladder History: Epigastric discomfort Comparison exam: CT Abdomen/pelvis dated 05 November 2017 Findings: Sonographic evaluation of the right upper quadrant demonstrates the gallbladder with with an echogenic structure with posterior shadowing adhering to the fundal region of the gallbladder. Remainder of the gallbladder wall without thickening or lesion. Common bile duct measures 10.2 mm. Liver demonstrates coarse echogenicity. Intrahepatic biliary prominence. No mass or cyst. Normal flow on color analysis. Normal portal vein Doppler waveform. Right kidney measures 10.5 cm in length. No cortical mass or cyst. No hydronephrosis. Fullness involving the pancreatic head measuring greater than 4.8 cm. Impression: Echogenic gallbladder wall lesion concerning for gallbladder mass. Dilated common bile duct and intrahepatic biliary system suggesting obstruction - CT from October 2017 described a pancreatic lesion. Coarse hepatic echogenicity: no definite central lesion - correlate with hepatic laboratory values. Fullness involving the pancreatic head measuring greater than 4.8 cm - CT from October 2017 described a pancreatic lesion. Electronically signed on Dec 18, 2017 8:53:18 AM CDT by: Ben AGUILAR
== END 2017-12-18 08:03 ==
LOC: RAD 08:02
PROVIDERS: ATTEND Family Medicine
DX: R10.11 Right upper quadrant pain (principal)
CPT/HCPCS: 76705

== ENCOUNTER 2017-12-28 08:30 | Emergency (ER) | payer MEDICARE, OTHER ==
--- NOTE | 2017-12-28 10:28 | ED Physician Documentation ---
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 auto 3 days ago and hurt ribs on left side Onset: days ago (3) Timing: still present Severity: moderate Modifying Factors: made it worse when sneezed repeatedly and coughs secondary to copd Context: was fixing a car and laid across bumber, felt immediate pain in left ribs Quality: moderate Location: left ribs Last known Well Date: 12/25/17 Last Known Well Time: 07:00 - ROS CONST: no problems EYES/ENT: none CVS/RESP: other (deep breathing casuses left ribs to hurt) GI/: none MS/SKIN/LYMPH: other (left lower rib pain) NEURO/PSYCH: denies: headache, fainting, dizziness, tingling, numbness, difficulty walking, difficulty with speech, anxiety, depression - PAST HX Past History: COPD, hypertension, other (anemia, depression, gerd, pud, pancreatitis, etoh abuse, gi bleed) Other History: none Surgeries/Procedures: none Allergies/Adverse Reactions: Allergies Allergy/AdvReac Type Severity Reaction Status Date / Time No Known Allergies Allergy Verified 12/28/17 08:51 Home Medications: Ambulatory Orders Medication Instructions Recorded Buspirone HCl [Buspar] 10 mg PO DAILY 05/02/17 - SOCIAL HX Smoking History: cigarettes Alcohol Use: none Drug Use: none - FAMILY HX Family History: Yes - VITAL SIGNS Vital Signs: Vital Signs Temp Pulse Resp BP Pulse Ox 75 16 154/102 98 12/28/17 08:39 12/28/17 08:39 12/28/17 08:39 12/28/17 08:39 - REVIEWED ASSESSMENTS Nursing Assessment Reviewed: Yes Vitals Reviewed: Yes Progress - Results/Orders Results/Orders: cxr and left ribs x-ray ordered - Progress Progress: pt. stable entire time in er Critical Care Note - Critical Care Note Total Time (mins): 0 ED Results Lab/Radiology - Lab Results Lab Results: none taken - Radiology Radiology Impressions: cxr and left ribs x-ray neg - Orders Orders: ED Orders Category Date Time Status RIBS UNILATERAL W/ PA CHEST [RAD] Routine Exams 12/28/17 Taken General Adult Physical Exam - PHYSICAL EXAM GENERAL APPEARANCE: moderate distress EENT: eye inspection normal, ENT inspection normal, pharynx normal, no signs of dehydration, BONILLA, no nystagmus, TM's nml NECK: normal inspection, thyroid normal, supple RESPIRATORY: no resp distress, breath sounds normal, other (lower ribs tender, no bruising, no deformity left ribs). No: wheezes, rales, rhonchi CVS: reg rate & rhythm, heart sounds normal, equal pulses, no murmur, no gallop, PMI nml, no JVD, no friction rub ABDOMEN: soft, no organomegaly, normal bowel sounds, no abdominal bruit, no distension, non-tender BACK: normal inspection, no CVA tenderness SKIN: warm/dry, normal color EXTREMITIES: non-tender, normal range of motion, no evidence of injury, no edema NEURO: oriented X3, CN's nml as tested, motor nml, sensation nml, mood/affect nml, cognition normal Discharge Clincal Impression: Chest wall muscle strain Qualifiers: Encounter type: initial encounter Qualified Code(s): S29.011A - Strain of muscle and tendon of front wall of thorax, initial encounter Referrals: Scottie Rodgers MD [Primary Care Provider] - 2 Days Comments: pt. stable entire time in ER Condition: Stable Disposition: 01 HOME, SELF-CARE Decision to Admit: NO Decision Time: 10:47
[2017-12-28 11:01] VITALS: BP 132/87
--- NOTE | 2017-12-28 21:42 | Diagnostic Imaging Report ---
OSMANI DELGADILLO [facility] [address] [facility] [address] [place], [place]. [address] Report Submission Date: Dec 28, 2017 10:03:42 AM CDT Patient Study Name: JOE GEORGE Date: Dec 28, 2017 9:27:56 AM CDT Modality Type: DX Gender: M Description: CHEST : 62 Institution: [facility] Physician: OSMANI DELGADILLO Examination: Plain film chest/left ribs History: PA CHEST/ LEFT RIBS, LEFT SIDED MID RIB PAIN X4 DAYS, PT STATES HE WORKED ON HIS CAR ABOUT 4 DAYS AGO AND WAS LEANING OVER THE MAK, BUT NO OTHER KNOWN INJURIES. SMOKER. PT STATES HX OF SURGERY TO PLACE COILS TO STOP BLEEDING (Hx Findings: 4 views of the ribs demonstrates normal cortical margins. No fracture or dislocation. Underlying parenchymal without abnormality. Single view of the chest without focal infiltrative process. No blunting of the costophrenic March. Impression: No rib fracture/abnormality. No acute parenchymal process. Electronically signed on Dec 28, 2017 10:03:42 AM CDT by: Ben AGUILAR
== END 2017-12-28 10:59 | disposition home or self-care (01) ==
LOC: ED 08:30
DX: S29.011A Strain of muscle and tendon of front wall of thorax, initial encounter (principal); X50.0XXA Overexertion from strenuous movement or load, initial encounter; Y92.018 Other place in single-family (private) house as the place of occurrence of the external cause; Y93.9 Activity, unspecified; Y92.9 Unspecified place or not applicable
CPT/HCPCS: 71101; 99283

== ENCOUNTER 2018-02-05 10:30 | Emergency (ER) | payer MEDICARE, OTHER ==
[2018-02-05] MEDS ORDERED: ASPIRIN 81 MG CHEW TAB PO ONE (10:44)
[2018-02-05 11:08] LABS: BASOPHILS % 0.5 (0.0-1.5); EOSINOPHILS % 1.5 % (0.0-6.8); MEAN CORPUSCULAR HEMOGLOBIN 26.7 pg (28.0-34.0); MONOCYTES % 5.6 % (0.0-11.0)
[2018-02-05] MEDS ORDERED: DICYCLOMINE HCL 10 MG/ML VIAL IM ONE (11:08)
[2018-02-05 11:09] LABS: NEUTROPHILS # 9.3 # k/uL (1.4-7.7)
[2018-02-05] MEDS: 0.9 % SODIUM CHLORIDE 1,000 ML IV ONE (11:14)
[2018-02-05 11:27] LABS: eGFR (Non-African) > 60
--- NOTE | 2018-02-05 11:28 | ED Physician Documentation ---
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 pt presents to the ED with c/o upper abdominal pain 8/10 x 2 days that is constant, wax/wanes, radiates through to back at times. pt reports normal BM yesterday. pt has a history of billiary stents and chronic abdominal pain/pancreatitis. pt PCP is dr rodgers (who is present) pt reports he takes oxycodone for his chronic abdominal pain but has been unable to take it today due to the nausea. pt has been previously referred to GI speciality at [facility] for suspected pancreatic/gallbladder lesion but has not been able to keep appointments. pt denies pt denies current chest pain, dyspnea, syncope/near syncope, headache, dizziness, visual disturbances, n/v/d/c, fever, rash, sick contacts, dysuria, trauma. melena or hematochezia, change in bowel or bladder function. anxiety or depression. ROS Negative unless otherwise specified. Onset: days ago (2) Timing: still present Severity: moderate - ROS CONST: weight loss EYES/ENT: none CVS/RESP: none. denies: chest pain, shortness of breath, cough GI/: abdominal pain, nausea. denies: none, problems urinating, vomiting, diarrhea, black stools MS/SKIN/LYMPH: none NEURO/PSYCH: denies: headache, fainting, dizziness, tingling, numbness, difficulty walking - PAST HX Past History: other ("irregular heart rate" ) Other History: pancreatitis, other (hospital record reviewed. ) Surgeries/Procedures: other (Billiary stents) Allergies/Adverse Reactions: Allergies Allergy/AdvReac Type Severity Reaction Status Date / Time oxycodone AdvReac Vomiting Unverified 11/02/17 13:47 Home Medications: Ambulatory Orders Medication Instructions Recorded Buspirone HCl [Buspar] 10 mg PO DAILY 05/02/17 Dicyclomine HCl [Bentyl] 20 mg PO Q6 PRN #40 tablet 02/05/18 - SOCIAL HX Smoking History: less than 1 pack/day Alcohol Use: none Drug Use: none - FAMILY HX Family History: No - VITAL SIGNS Vital Signs: Vital Signs Temp Pulse Resp BP Pulse Ox 97.1 F L 68 18 132/90 96 02/05/18 10:30 02/05/18 11:15 02/05/18 10:30 02/05/18 10:30 02/05/18 11:15 - REVIEWED ASSESSMENTS Nursing Assessment Reviewed: Yes Vitals Reviewed: Yes Progress - Progress Progress: Dr Rodgers consulted (present and pt PCP) CT or further imaging not indicated due to multiple CTs and US in the last month which revealed 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 pt to follow up in clinic tomorrow. pt agreed to this plan and verbalized understanding. 1200: pt reports pain only mildly improved with the bentyl. IM DIlaudid 1 mg ordered. Pt reports readiness for discharge. - Consult/PCP Time Called: 11:40 Consult/PCP: Ana Maria Consult Reason/Comments: Dr Rodgers (present and pt PCP) CT or further imaging not indicated. ED Results Lab/Radiology - Lab Results Lab Results: Lab Results 02/05/18 10:50 WBC 12.40 K/ul H K/ul (4.00-12.00) RBC 5.36 M/ul H M/ul (3.90-5.20) Hgb 14.3 g/dL g/dL (12.0-18.0) Hct 44.7 % % (37.0-53.0) MCV 83.0 fl fl (80.0-100.0) MCH 26.7 pg L pg (28.0-34.0) MCHC 32.1 g/dL g/dL (30.0-36.0) RDW 16.1 % H % (11.3-14.3) Plt Count 362 K/mm3 K/mm3 (130-400) Neut % (Auto) 74.9 % % (39.0-79.0) Lymph % (Auto) 17.5 % % (16.0-50.0) Towner % (Auto) 5.6 % % (0.0-11.0) Eos % (Auto) 1.5 % % (0.0-6.8) Baso % (Auto) 0.5 (0.0-1.5) Neut # (Auto) 9.3 # k/uL H # k/uL (1.4-7.7) Lymph # (Auto) 2.2 # k/uL # k/uL (0.6-4.0) Towner # (Auto) 0.7 # k/uL # k/uL (0.0-0.9) Eos # (Auto) 0.2 # k/uL # k/uL (0.0-0.6) Baso # (Auto) 0.1 # k/uL # k/uL (0.0-0.5) EKG rate 75. normal intervals, axis, QRS. no st depression, elevation, or ectopy. Normal sinus rhythm. Interp by me. - Radiology Radiology Impressions: Portable chest History: Chest pain for 2 days Two portable views of the chest demonstrate a normal cardiomediastinal silhouette. Pulmonary vascularity is normal. Lungs are clear. Impression: No active disease. Electronically signed on Feb 05, 2018 11:31:30 AM CDT by: Miroslava Rizo - Orders Orders: ED Orders Category Date Time Status Continuous EKG monitoring Q30M Care 02/05/18 10:45 Active Continuous Pulse Oximetry Q30M Care 02/05/18 10:[address] IV Lock 1T Care 02/05/18 10:45 Active CHEST 1VIEW [RAD] Stat Exams 02/05/18 Taken CBC/PLATELET/DIFF Routine Lab 02/05/18 10:50 Completed CMP Routine Lab 02/05/18 10:50 Received LIPASE Stat Lab 02/05/18 10:50 Received TROPONIN I (cTnI) Stat Lab 02/05/18 10:50 Received UA [URINALYSIS] Stat Lab 02/05/18 11:09 Ordered Urine drug screen [DRUG SCREEN URINE MEDICAL ONLY] Stat Lab 02/05/18 11:09 Ordered 0.9 % Sodium Chloride [Normal Saline] 1,000 ml Med 02/05/18 11:05 Active IV Q1H Aspirin Med 02/05/18 10:44 Discontinued 324 mg PO NOW ONE Dicyclomine HCl [Bentyl] Med 02/05/18 11:08 Discontinued 20 mg IM NOW ONE Oxygen Daily Oxygen 02/05/18 10:45 Ordered EKG WITH COMPARISON Stat Ther 02/05/18 10:45 Ordered General Adult Physical Exam - PHYSICAL EXAM GENERAL APPEARANCE: thin EENT: eye inspection normal, pharynx normal, no signs of dehydration NECK: normal inspection. No: lymphadenopathy RESPIRATORY: no resp distress, chest non-tender, breath sounds normal CVS: reg rate & rhythm, heart sounds normal, equal pulses, no murmur, no gallop ABDOMEN: soft, normal bowel sounds, no distension, tenderness (upper right mild ). No: abnormal bowel sounds BACK: normal inspection SKIN: warm/dry EXTREMITIES: non-tender, normal range of motion, no evidence of injury, no edema NEURO: oriented X3, CN's nml as tested, motor nml, sensation nml, mood/affect nml Discharge Clincal Impression: Abdominal pain Qualifiers: Abdominal location: upper abdomen, unspecified Qualified Code(s): R10.10 - Upper abdominal pain, unspecified Prescriptions: Dicyclomine HCl [Bentyl] 20 mg PO Q6 PRN #40 tablet PRN Reason: Spasms Referrals: Scottie Rodgers MD [Primary Care Provider] - 2 Days Additional Instructions: Follow up with Dr Rodgers tomorrow 02/06/18 at 1400 as previously scheduled. Follow up with GI speciality as previously referred. Follow a mild diet, soups, bread, bananas, crackers. Increase fluid intake. do not drink alcohol. Seek medical care if worsening condition: chest pain, shortness of breath, or any concern. UNDERSTAND THAT THIS IS AN EMERGENCY EVALUATION FOR YOUR COMPLAINT TODAY AND BY NATURE IS LIMITED. It Is NOT A SUBSTITUTE FOR ONGOING MEDICAL CARE. I HAVE EXPLAINED THE TEST RESULTS AND TREATMENT PLAN- THERE MAY BE A NEED FOR ADDITIONAL TESTING TO FULLY DETERMINE THE EXTENT OF YOUR ILLNESS/INJURY/OR CONCERN SO YOU SHOULD CONTACT AND OR ESTABLISH WITH A PRIMARY CARE PROVIDER (AND GI SPECIALIST ) FOR AN APPOINTMENT SOON POSSIBLE Condition: Good Disposition: 01 HOME, SELF-CARE Palliative/Comfort Care: Palliative Care Decision to Admit: NO Date of Decison to Admit: 02/05/18 Decision Time: 12:36
[2018-02-05] MEDS ORDERED: DICYCLOMINE HCL 20 MG TABLET PO ONE (11:37)
[2018-02-05] MEDS ORDERED: HYDROmorphone HCL/PF 1 MG/ML DISP.SYRIN IM ONE (12:35)
[2018-02-05 13:03] VITALS: BP 173/93
--- NOTE | 2018-02-05 13:37 | Diagnostic Imaging Report ---
AL APONTE [facility] [place] [facility] [address] [facility].[address] [address] Report Submission Date: Feb 05, 2018 11:31:30 AM CDT Patient Study Name: JOE GEORGE Date: Feb 05, 2018 10:56:21 AM CDT Modality Type: DX Gender: M Description: CHEST : 62 Institution: [facility] [place] [facility] Physician: AL APONTE Portable chest History: Chest pain for 2 days Two portable views of the chest demonstrate a normal cardiomediastinal silhouette. Pulmonary vascularity is normal. Lungs are clear. Impression: No active disease. Electronically signed on Feb 05, 2018 11:31:30 AM CDT by: Miroslava AGUILAR
[2018-02-06 07:44] LABS: APPEARANCE,URINE CLEAR (CLEAR); COLOR,URINE AMBER (YELLOW)
[2018-02-06 07:45] LABS: OCCULT BLOOD,URINE NEGATIVE (NEGATIVE); PH URINE 5.5 (5.0 - 8.0); UROBILINOGEN URINE 0.2 Eu (0.2-1.0)
[2018-02-06 16:27] LABS: CANNABINOIDS NON NEGATIVE ng/mL (< 50); METHYLENEDIOXYMETHAMPHETAMINE NEGATIVE ng/mL (<500)
== END 2018-02-05 13:00 | disposition home or self-care (01) ==
LOC: ED 10:30
DX: R10.10 Upper abdominal pain, unspecified (principal); K82.8 Other specified diseases of gallbladder
CPT/HCPCS: 71045; 80053; 81002; 83690; 84484; 85025; 93005; G0481; J7030; 80377; 96365; 99284; S1016

== ENCOUNTER 2018-02-24 10:13 | Emergency (ER) | payer MEDICARE, OTHER ==
[2018-02-24 10:54] LABS: EOSINOPHILS % 1.4 % (0.0-6.8); MEAN CORPUSCULAR HEMOGLOBIN 27.6 pg (28.0-34.0); MONOCYTES % 8.5 % (0.0-11.0)
[2018-02-24 10:55] LABS: BASOPHILS % 0.6 (0.0-1.5); NEUTROPHILS # 7.9 # k/uL (1.4-7.7)
[2018-02-24 11:02] LABS: eGFR (Non-African) > 60
--- NOTE | 2018-02-24 12:09 | ED Physician Documentation ---
Abdominal Pain - HISTORIAN Historian: patient - HPI Stated Complaint: Abdominal Pain Chief Complaint: Abdominal Pain Additonal Information: Patient with past medical history of alcoholism and chronic pancreatitis presents to ED with a 4 day history of epigastric pain. Patient states he was seen at [facility] for GI bleed with coiling earlier this year. He states the coiling his hurting. He states he has lost 70 lbs over the past 3 months, however, has gained 8 lbs back. He reports he stopped drinking a year ago, however, staff reports a different story. Onset: days ago (4) Duration: waxing, waning Timing: still present Context: denies: out of country travel, bad food Severity: moderate Quality: pain, aching, dull, sharp Associated Symptoms: denies: fever, chills, nausea, vomiting Exacerbated by: movements Relieved by: supine - ROS CONST: no problems GI/: denies: constipation, bloody stools, problems urinating CVS/RESP: denies: shortness of breath, hurts to breath EYES/ENT: none MS/SKIN/LYMPH: denies: leg swelling NEURO/PSYCH: denies: headache, dizziness, light-headedness - SOCIAL HX Smoking History: cigarettes, greater than 1 pack/day Alcohol Use: other (reports drinking a pint of whiskey per day but quit a year ago. Staff reports a different story) Drug Use: other (prescription pain meds) - FAMILY HX Family History: none - PAST HX Past History: pancreatitis (chronic) Surgeries/Procedures: none Home Medications: Ambulatory Orders Medication Instructions Recorded Buspirone HCl [Buspar] 10 mg PO DAILY 05/02/17 Dicyclomine HCl [Bentyl] 20 mg PO Q6 PRN #40 tablet 02/05/18 Bupropion HCl [Bupropion HCl Sr] 150 mg PO 02/24/18 Lactulose [Enulose] 10 gm PO DAILY #900 ml 02/24/18 Lipase/Protease/Amylase [Tere Vergara 1 cap PO TID 02/24/18 24,000 Units Capsule] Lipase/Protease/Amylase [Tere Vergara 1 cap PO TID 02/24/18 24,000 Units Capsule] Pantoprazole Sodium [Protonix] 40 mg PO DAILY #30 tablet. 02/24/18 Allergies/Adverse Reactions: Allergies Allergy/AdvReac Type Severity Reaction Status Date / Time oxycodone AdvReac Vomiting Unverified 02/24/18 10:31 - VITAL SIGNS Vital Signs: Vital Signs Temp Pulse Resp BP Pulse Ox 97.1 F L 84 18 159/98 98 02/24/18 10:15 02/24/18 10:15 02/24/18 10:15 02/24/18 10:15 02/24/18 10:15 - REVIEWED ASSESSMENTS Nursing Assessment Reviewed: Yes Vitals Reviewed: Yes ED Results Lab/Radiology - Lab Results Lab Results: Lab Results 02/24/18 02/24/18 02/24/18 10:43 10:42 10:42 WBC 11.80 K/ul K/ul (4.00-12.00) RBC 5.47 M/ul H M/ul (3.90-5.20) Hgb 15.1 g/dL g/dL (12.0-18.0) Hct 46.4 % % (37.0-53.0) MCV 85.0 fl fl (80.0-100.0) MCH 27.6 pg L pg (28.0-34.0) MCHC 32.6 g/dL g/dL (30.0-36.0) RDW 15.2 % H % (11.3-14.3) Plt Count 306 K/mm3 K/mm3 (130-400) Neut % (Auto) 66.4 % % (39.0-79.0) Lymph % (Auto) 23.1 % % (16.0-50.0) Dubois % (Auto) 8.5 % % (0.0-11.0) Eos % (Auto) 1.4 % % (0.0-6.8) Baso % (Auto) 0.6 (0.0-1.5) Neut # (Auto) 7.9 # k/uL H # k/uL (1.4-7.7) Lymph # (Auto) 2.7 # k/uL # k/uL (0.6-4.0) Dubois # (Auto) 1.0 # k/uL H # k/uL (0.0-0.9) Eos # (Auto) 0.2 # k/uL # k/uL (0.0-0.6) Baso # (Auto) 0.1 # k/uL # k/uL (0.0-0.5) Sodium 138 mmol/L mmol/L (136-145) Potassium 4.7 mmol/L mmol/L (3.5-5.1) Chloride 100 mmol/L mmol/L (98-107) Carbon Dioxide 26 mmol/L mmol/L (22-30) BUN 13 mg/dL mg/dL (9-20) Creatinine 0.80 mg/dL mg/dL (0.66-1.25) Estimated Creat Clear 85 Est GFR ( Amer) > 60 (60 - ) Est GFR (Non-Af Amer) > 60 (60 - ) Glucose 132 mg/dL H mg/dL (74-106) Calcium 9.1 mg/dL mg/dL (8.4-10.2) Total Bilirubin 0.6 mg/dL mg/dL (0.2-1.3) AST 31 U/L U/L (15-46) ALT 42 U/L U/L (13-69) Alkaline Phosphatase 159 U/L H U/L (38-126) Total Protein 7.7 g/dL g/dL (6.3-8.2) Albumin 4.2 g/dL g/dL (3.5-5.0) Lipase 474 U/L H U/L (23-300) - Radiology Radiology Impressions: CT abdomen and pelvis with contrast CLINICAL HISTORY: Abdominal pain. History of chronic pancreatitis. Contrast administered: 100 mL of Omnipaque 350. TECHNIQUE: CT of the abdomen and pelvis is performed with oral and intravenous administrat ion of contrast. Sagittal and coronal reconstructions are performed by the technologist. Comparison is made to a prior study dated 11/05/2017. FINDINGS: Visualized lung bases are clear. Spleen demonstrates normal attenuation without focal defect. The gallbladder is normally distended. There is extrahepatic and central intrahepatic biliary ductal dilatation without change. There are diffuse pancreatic calcifications consistent with changes of chronic pancreatitis. Multiple embolization coils are seen in the abdomen adjacent to the pancreas and anterior to the aorta. There is marked gastric wall thickening and edema consistent with gastritis. Kidneys demonstrate symmetric enhancement. There is no retroperitoneal mass or significant adenopathy. Bladder is unremarkable. There is no significant free fluid in the pelvis or abdomen. Gas and stool are present in the colon. IMPRESSION: Marked gastric wall thickening and edema consistent with gastritis. Distention the biliary tree. Changes of chronic pancreatitis. Embolization coils in the upper abdomen with metal artifact obscuring portions of the abdomen. Electronically signed on Feb 24, 2018 1:04:02 PM ATHLETIC TEAM PHYSICIAN by: Ismael Ding - Orders Orders: ED Orders Category Date Time Status Place IV Lock 1T Care 02/24/18 10:[address] ABD & PELVIS W/ CON Stat Exams 02/24/18 Taken CBC/PLATELET/DIFF Stat Lab 02/24/18 10:43 Completed CMP Stat Lab 02/24/18 10:42 Completed LIPASE Stat Lab 02/24/18 10:42 Completed Pantoprazole Sodium [Protonix] Med 02/24/18 13:11 Discontinued 40 mg .ROUTE .STK-MED ONE Pantoprazole Sodium [Protonix] 40 mg Med 02/25/18 13:07 Active 0.9 % Sodium Chloride [Sodium Chloride] 50 ml IV NOW Abdominal Pain Physical Exam - Physical Exam General Appearance: no acute distress, alert NECK: supple RESPIRATORY: no resp distress, breath sounds normal CVS: reg rate & rhythm, heart sounds normal ABDOMEN: soft, tenderness (epigastric ) BACK: no CVA tenderness SKIN: warm/dry EXTREMITIES: non-tender NEURO: oriented X3 Vital Signs: Vital Signs Temp Pulse Resp BP Pulse Ox 97.1 F L 84 18 159/98 98 02/24/18 10:15 02/24/18 10:15 02/24/18 10:15 02/24/18 10:15 02/24/18 10:15 Discharge Clincal Impression: Gastritis Qualifiers: Gastritis type: alcoholic Chronicity: acute Gastritis bleeding: without bleeding Qualified Code(s): K29.20 - Alcoholic gastritis without bleeding Constipation Qualifiers: Constipation type: drug induced constipation Qualified Code(s): K59.03 - Drug induced constipation Prescriptions: Lactulose [Enulose] 10 gm PO DAILY #900 ml Pantoprazole Sodium [Protonix] 40 mg PO DAILY #30 tablet.dr Referrals: Scottie Rodgers MD [Primary Care Provider] - 2 Days Additional Instructions: Follow up with [facility] physician as already scheduled on February 28. Take medications as prescribed. Refrain from alcohol, smoking, caffeine, spicy foods and chocolate. Condition: Stable Disposition: 01 HOME, SELF-CARE Decision to Admit: NO Date of Decison to Admit: 02/24/18 Decision Time: 13:09
[2018-02-24] MEDS ORDERED: PANTOPRAZOLE SODIUM INJ. 40 MG VIAL ONE (13:11)
--- NOTE | 2018-02-24 13:41 | Diagnostic Imaging Report ---
Report Submission Date: Feb 24, 2018 1:04:02 PM RAILCAR CARPENTER Patient Study Name: JOE GEORGE Date: Feb 24, 2018 11:40:06 AM RAILCAR CARPENTER Modality Type: CT Gender: M Description: CT ABD PELVIS W/ CON : 62 Institution: [facility] Physician: TESSIE JORDAN CT abdomen and pelvis with contrast CLINICAL HISTORY: Abdominal pain. History of chronic pancreatitis. Contrast administered: 100 mL of Omnipaque 350. TECHNIQUE: CT of the abdomen and pelvis is performed with oral and intravenous administration of contrast. Sagittal and coronal reconstructions are performed by the technologist. Comparison is made to a prior study dated 11/05/2017. FINDINGS: Visualized lung bases are clear. Spleen demonstrates normal attenuation without focal defect. The gallbladder is normally distended. There is extrahepatic and central intrahepatic biliary ductal dilatation without change. There are diffuse pancreatic calcifications consistent with changes of chronic pancreatitis. Multiple embolization coils are seen in the abdomen adjacent to the pancreas and anterior to the aorta. There is marked gastric wall thickening and edema consistent with gastritis. Kidneys demonstrate symmetric enhancement. There is no retroperitoneal mass or significant adenopathy. Bladder is unremarkable. There is no significant free fluid in the pelvis or abdomen. Gas and stool are present in the colon. IMPRESSION: Marked gastric wall thickening and edema consistent with gastritis. Distention the biliary tree. Changes of chronic pancreatitis. Embolization coils in the upper abdomen with metal artifact obscuring portions of the abdomen. Electronically signed on Feb 24, 2018 1:04:02 PM RAILCAR CARPENTER by: Ismael AGUILAR
[2018-02-24 13:52] VITALS: BP 148/76
[2018-02-25] MEDS ORDERED: PANTOPRAZOLE SODIUM 40 MG in 0.9 % SODIUM CHLORIDE 50 ML IV ONE (13:07)
== END 2018-02-24 13:50 | disposition home or self-care (01) ==
LOC: ED 10:13
DX: K29.20 Alcoholic gastritis without bleeding (principal); K59.03 Drug induced constipation; Z87.19 Personal history of other diseases of the digestive system
CPT/HCPCS: 74177; 80053; 83690; 85025; 96374; 99283; 99284; Q9967; S1016

== ENCOUNTER 2018-04-22 16:48 | Emergency (ER) | payer MEDICARE, OTHER ==
[2018-04-22] MEDS ORDERED: ORPHENADRINE CITRATE 60 MG/2 ML ML IM STA (17:08)
[2018-04-22] MEDS ORDERED: KETOROLAC TROMETHAMINE 60 MG/2 ML VIAL IM STA (17:08)
--- NOTE | 2018-04-22 18:06 | Diagnostic Imaging Report ---
AL APONTE [facility] [address] [facility] [address] [place] [address]. [id number] Report Submission Date: Apr 22, 2018 5:42:18 PM CREAM RIPENER Patient Study Name: JOE GEORGE Date: Apr 22, 2018 5:12:59 PM CREAM RIPENER Modality Type: CT\SR Gender: M Description: CT BRAIN W/O CONTRAST : 62 Institution: [facility] Physician: AL APONTE Head CT without contrast Clinical history: Injury. Technique: CT examination the brain is performed in contiguous axial slices with sagittal and coronal reconstructions. Findings: The 4th ventricle lies in a normal midline position. The ventricles and sulci are prominent secondary to atrophy. There is no hypodense or hyperdense mass or intracranial hemorrhage. Intracranial atherosclerosis is evident. Mucosal thickening is evident in the sphenoid sinuses. Impression: 1. Atrophy and chronic small vessel ischemic changes. 2. Intracranial atherosclerosis. 3. No acute intracranial changes. Electronically signed on Apr 22, 2018 5:42:18 PM CREAM RIPENER by: Ismael AGUILAR
--- NOTE | 2018-04-22 18:07 | Diagnostic Imaging Report ---
AL APONTE [facility] [address] [facility] [address] [place], [place]. [address] Report Submission Date: Apr 22, 2018 5:47:01 PM ELECTRIC ORGAN ASSEMBLER AND CHECKER Patient Study Name: JOE GEORGE Date: Apr 22, 2018 5:15:30 PM ELECTRIC ORGAN ASSEMBLER AND CHECKER Modality Type: CT\SR Gender: M Description: CT C-SPINE W/O CONTRAS : 62 Institution: [facility] [place] [facility] Physician: AL APONTE CT of the cervical spine Clinical history: Injury. Technique: CT examination of the cervical spine is performed in contiguous axial slices with sagittal and coronal reconstructions. Findings: The alignment of the vertebrae is anatomic. Disc spaces are narrowed at C4-5 and C5-6 with anterior and posterior osteophytes. Facet joints are narrowed throughout the cervical vertebrae. Prevertebral soft tissues are within normal limits. The C1-2 articulation is normal and the base of the odontoid is intact. Posterior osteophytes narrow the neural foramina bilaterally at C5-6 and C6-7. Emphysematous changes are incidentally noted in the upper lung zones. Impression: 1. Spondylosis. 2. No fracture. Electronically signed on Apr 22, 2018 5:47:01 PM ELECTRIC ORGAN ASSEMBLER AND CHECKER by: Ismael AGUILAR
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
[2018-04-22 18:20] VITALS: BP 122/74
== END 2018-04-22 18:17 | disposition home or self-care (01) ==
LOC: ED 16:48
DX: M54.2 Cervicalgia (principal); W31.89XA Contact with other specified machinery, initial encounter; Y93.9 Activity, unspecified; Y92.69 Other specified industrial and construction area as the place of occurrence of the external cause
CPT/HCPCS: 70450; 72125; 96372; 99283; 99285; J1885; J2360

== ENCOUNTER 2019-01-29 12:39 | Emergency (ER) | payer MEDICARE, OTHER ==
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
[2019-01-29] MEDS: 0.9 % SODIUM CHLORIDE 1,000 ML IV ONE (13:13)
[2019-01-29 13:21] LABS: BASOPHILS % 0.8 % (0.0-1.5); NEUTROPHILS # 7.6 # k/uL (1.4-7.7); SEGMENTED NEUTROPHILS % 57 % (39-79)
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
[2019-01-29] MEDS: KETOROLAC TROMETHAMINE 15 MG/ML VIAL IV ONE (13:41)
[2019-01-29] MEDS: KETOROLAC TROMETHAMINE 30 MG/1ML VIAL ONE (13:41)
[2019-01-29 13:51] LABS: CANNABINOIDS NON NEGATIVE ng/mL (< 50); METHYLENEDIOXYMETHAMPHETAMINE NON NEGATIVE ng/mL (<500)
[2019-01-29 13:53] LABS: APPEARANCE,URINE CLEAR (CLEAR); COLOR,URINE YELLOW (YELLOW); OCCULT BLOOD,URINE NEGATIVE (NEGATIVE); PH URINE 5.5 (5.0 - 8.0); UROBILINOGEN URINE 0.2 Eu (0.2-1.0)
[2019-01-29 14:13] VITALS: BP 116/68
== END 2019-01-29 14:00 | disposition home or self-care (01) ==
LOC: ED 12:39
DX: T74.11XA Adult physical abuse, confirmed, initial encounter (principal)
CPT/HCPCS: 70450; 72125; 80053; 80320; 80377; 81002; 85025; G0480; G0481; J7030; S1016